=== PATIENT | female | born 1975 | race Caucasian/White ===

== ENCOUNTER → 2017-05-12 20:33 | Outpatient (CLI) | payer MEDICAID, SELFPAY | PROVIDERS: Family Provider Student in an Organized Health Care Education/Training Program; PCP Student in an Organized Health Care Education/Training Program; Visit Provider Psychiatry & Neurology Psychiatry | DX: G47.33 Obstructive sleep apnea (adult) (pediatric) (principal) | CPT/HCPCS: 95811 ==

== ENCOUNTER 2017-11-27 08:41 | Day surgery (SDC) | payer MEDICAID, SELFPAY ==
[2017-11-27] VITALS (7 sets, daily range): BP systolic 114–131; BP diastolic 79–97; PULSE 60–89; RESP 14–22; TEMP 36.7–36.9; O2SAT 99–100; BMI 32.5
--- NOTE | 2017-11-27 | GASB_PTH ---
PATIENT: ETHEL SIMPSON LOC: EN U#:[id number] AGE/SX: 42/F ROOM: RE11/27/[address]: Dr. Lawrence Taveras MD : 1975 BED: DIS: 11/27/2017 SPEC #: [id number] RECD: 11/27/17 14:28 STATUS: YUKO ALONZO #: [id number] DEVAN: 11/27/17 00:[address]: Lawrence Taveras DEPT: SURGICAL PATHOLOGY RECD BY: Adeel Cordova ENTERED: 11/27/17 14:29 SP TYPE: Gastric Bx OTHR DR: Dr. Jamar Shahid DO Tissues: A - Gastric mucous membrane B - Gastric mucous membrane C - Esophageal mucous membrane D - Esophageal mucous membrane E - COLON BIOPSY Procedures: Surgery Specimen Level IV HEADER OPERATION: Colonoscopy, EGD ([facility] [place]) PRE-OP DIAGNOSIS: Abdomen pain; change in bowel habits TISSUE SUBMITTED: A ? Antral biopsy, B ? Gastric polyp biopsy, C ? Distal esophagus biopsy, D ? Mid esophageal biopsy, E ? Random colon biopsies MICROSCOPIC DIAGNOSIS A. Gastric antrum, biopsy: Mild chronic gastritis. B. Gastric polyp, biopsy: Fundic gland polyp. C. Distal esophagus, biopsy: Fragment of benign squamous mucosa. No evidence of inflammation. D. Mid esophagus, biopsy: Fragment of benign squamous mucosa. No evidence of inflammation. E. Random biopsy: No pathologic diagnosis. AM:georgina 11/30/17 COMMENT A.The results of immunohistochemistry for Helicobacter pylori will be reported separately ([id number]). MICROSCOPIC DESCRIPTION Slides are reviewed. GROSS DESCRIPTION A ? Received is one container labeled with the patient name and designated antrum biopsy. The specimen consists of one irregular fragment of light armenta soft tissue that measures 0.5 x 0.2 x 0.1 cm. The specimen is totally submitted in one cassette. B- Received is one container labeled with the patient name and designated gastric polyp biopsy. The specimen consists of one irregular fragment of light armenta soft tissue that measures 0.3 x 0.3 x 0.1 cm. The specimen is totally submitted in one cassette. C - Received is one container labeled with the patient name and designated distal esophagus biopsy. The specimen consists of multiple irregular fragments of light armenta soft tissue that in aggregate measure 0.6 x 0.5 x 0.1 cm. The specimen is totally submitted in one cassette. D - Received is one container labeled with the patient name and designated mid esophagus. The specimen consists of one irregular fragment of light armenta soft tissue that measures 0.5 x 0.5 x less than 0.1 cm. The specimen is totally submitted in one cassette. E - Received is one container labeled with the patient name and designated random colon biopsy. The specimen consists of multiple irregular fragments of light armenta soft tissue that in aggregate measure 1 x 0.7 x 0.1 cm. The specimen is totally submitted in one cassette. /AM:sp 11/27/17 TC: 3 CPT: 18317 x5
--- NOTE | 2017-11-27 | IMM_PTH ---
PATIENT: ETHEL SIMPSON LOC: EN U#:[id number] AGE/SX: 42/F ROOM: RE11/27/[address]: Dr. Lawrence Taveras MD : 1975 BED: DIS: 11/27/2017 SPEC #: [id number] RECD: 11/30/17 11:57 STATUS: YUKO REHayes #: [id number] DEVAN: 11/27/17 00:[address]: Lawrence Taveras DEPT: IMMUNOHISTOCHEMISTRY RECD BY: Shima Mendez ENTERED: 11/30/17 11:58 SP TYPE: IMMUNO OTHR DR: Dr. Jamar Shahid, Tissues: A - Gastric mucous membrane Procedures: H Pylori (initial) Comments: @ Specimen number changed from [id number] to [id number] @ on 11/30/17 at 1207 by MARCI. PHYSICIAN & INSTITUTION [place] [id number] SPECIMEN INFORMATION: Tissue Source: A. Antral biopsy Clinical Info: Abdomen pain, change in bowel habits Specimen Number: [id number] CPT code: 31987 METHODOLOGY: Deparaffinized sections of prefer/formalin-fixed tissue or PAP/DQ stained slides are incubated with monoclonal/polyclonal antibodies/oligonucleotide probes. Localization is made via biotin free immunoperoxidase method. Appropriate controls are performed and reacted as expected. Results on target cell population are indicated in the following table: RESULTS: ANTIBODY / CLONE RESULT Block A H Pylori (polyclonal) negative These tests were developed and their performance characteristics determined by [facility]. They may not have been cleared or approved by the U.S. Food and Drug Administration. The FDA has determined that such clearance or approval is not necessary. INTERPRETATION: Gastric antrum, biopsy: Negative for Helicobacter pylori organisms. AM:joesph 12/01/17
[2017-11-27 09:21] LABS: Bedside Glucose 90 mg/dL (70-110)
--- NOTE | 2017-11-27 11:07 | PCM.OPRPT ---
Problem List (1) Abdominal pain Status: Acute Qualifiers: Abdominal location: generalized Qualified Code(s): R10.84 - Generalized abdominal pain Report of Operation Date of Procedure: 11/27/17 Pre-Operative Diagnosis: Generalized abdominal pain Post-Operative Diagnosis: Very small hiatal hernia. Solitary gastric fundic polyp. Otherwise normal-appearing upper endoscopy. Normal-appearing colon. Surgery/Procedure Performed:: Esophagogastroduodenoscopy with antral and distal esophageal and mid esophageal biopsies and cold forcep biopsy polypectomy of a gastric fundic polyp. Colonoscopy with random colonic cold forcep biopsies Description of Surgical Findings:: Timeout and informed consent was obtained. A 2-year-old female was taken to the endoscopy suite. He underwent monitored anesthesia care. Her oropharynx anesthetized with Topex. She was placed in a left loud skin position. The gastroscope was inserted into the esophageal inlet. Proximal mid distal esophagus did not appear to be remarkable. EG junction at 39 cm. Very small hiatal hernia. No evidence of any reflux changes. The scope was advanced into the stomach which grossly appeared to be normal. The scope was advanced through the pylorus. The first and second portion of the duodenum were inspected this was not remarkable. The scope was withdrawn back in the stomach the scope was retroflexed the EG junction and cardia inspected. The cardia was normal except for 1 small polyp within the fundus of the stomach. Cold forceps were used to sample and eradicate this lesion. Minimal hiatal hernia noted. The scope was placed back in in antegrade viewing position. Antral biopsy was obtained. Excess fluid and air was aspirated free. The scope was withdrawn to the distal esophagus. Distal esophageal and mid esophageal cold forcep biopsies were obtained but the mucosa appeared to be normal. Excess fluid and air was aspirated free the procedure was completed with the patient tolerating it well. Digital rectal exam performed. Normal anal tone. Flexible colonoscope was inserted into the rectum advanced through a tortuous left colon. Scope was advanced to the transverse colon and by placing the patient supine and with transabdominal pressure is able to get the scope to go to the cecum. Bowel prep was very good. The cecum ileocecal valve was achieved. The scope was carefully withdrawn from the ascending transverse descending sigmoid colon. Random colonic biopsies were obtained. The mucosa appeared to be completely unremarkable. The scope was retroflexed within the rectum and a grade 2 internal hemorrhoids noted but no active bleeding. Excess fluid and air was aspirated free the procedure was completed with the patient tolerating it well. Impression Minimal hiatal hernia. Small gastric fundic polyp. Otherwise normal-appearing duodenum stomach and esophagus. Biopsies pending Normal-appearing colon. Random colonic biopsies pending. The current findings do not correlate with the patient's complaint of pain. The etiology of this is undetermined by this examination. No previous colonoscopy. Next screening colonoscopy recommended in 10 years. The upper scope was started at 1041. It was completed at 1046. The lower scope started at 1049. The cecum was reached at 1059. The procedure was completed at 04/06/2008. Cc: Dr. Jamar Shahid and Chely Draper MEDICATION SPECIALIST Lawrence Taveras M.D., F.A.C.S. Type of Anesthesia:: MAC Anesthesiologist: Ashli De La Vega
== END 2017-11-27 12:30 | disposition home or self-care (01) ==
LOC: EN 08:41 → AC 08:42
PROVIDERS: Family Provider Student in an Organized Health Care Education/Training Program; PCP Student in an Organized Health Care Education/Training Program; Visit Provider Surgery
PROC: 0DJD8ZZ Inspection of Lower Intestinal Tract, Via Natural or Artificial Opening Endoscopic (ICD-10-PCS; CPT 45378; principal; 2017-11-27 09:25)
DX: K29.50 Unspecified chronic gastritis without bleeding (principal); K44.9 Diaphragmatic hernia without obstruction or gangrene; K31.7 Polyp of stomach and duodenum; K90.49 Malabsorption due to intolerance, not elsewhere classified; E11.9 Type 2 diabetes mellitus without complications; J45.909 Unspecified asthma, uncomplicated; G47.30 Sleep apnea, unspecified; G25.81 Restless legs syndrome; K58.9 Irritable bowel syndrome, unspecified; F41.9 Anxiety disorder, unspecified; F32.9 Major depressive disorder, single episode, unspecified; Z86.2 Personal history of diseases of the blood and blood-forming organs and certain disorders involving the immune mechanism; Z79.84 Long term (current) use of oral hypoglycemic drugs
CPT/HCPCS: 43239; 45380; 82962; 88305; 88342; J7120

== ENCOUNTER 2019-04-18 08:34 | Emergency (ER) | payer MEDICAID, SELFPAY ==
[2019-04-18 08:35] VITALS: BP 144/83; PULSE 94; RESP 16; TEMP 37.3; O2SAT 96; BMI 32.4
--- NOTE | 2019-04-18 09:04 | ED.VIS.GEN ---
History of Present Illness Chief Complaint: General Illness Detail of Chief Complaint: mult complaints Informant: Patient Onset: Days - 3- Context: Gradual Onset Timing: Continuous Quality: achy Location: all over, joints Current Severity: Severe Maximum Severity: Severe Worsened by: moving Relieved by: remaining still Associated Symptoms: cough, sore throat, fever, bitemporal headache Narrative: Patient states she has a history of fibromyalgia and chronic cervicalgia. She is having a lot of pain and states it is in all of her joints. They feel achy. She has a nonproductive cough. For a couple of seconds, she felt short of breath yesterday but otherwise no dyspnea. She thought she was wheezing at the time. She has no history of asthma. She has had no edema. No recent travel out of the area. She states her had the respiratory illness before she did, he travels out of state frequently, but he did not have these pains. She states her head and neck hurt worse than usual. She has bitemporal headache with photophobia, no thunderclap, it was gradual in onset. She does not have a history of migraines. She denies any vision changes. She states the head pain is sharp. It does not radiate into her face. She looked up her symptoms on the Internet and has resolved she wants to make sure she does not have temporal arteritis. - Past Medical History (1) Fibromyalgia Status: Chronic (2) Cervicalgia Status: Chronic Past Medical History - Allergies and Home Meds Allergies/Adverse Reactions: Allergies latex Allergy (Verified 04/18/19 08:35) Swelling gluten Adverse Reaction (Verified 04/18/19 08:35) Other haloperidol [From Haldol] Adverse Reaction (Verified 04/18/19 08:35) Other Primary Care Physician: Jamar Shahid DO [Primary Care Provider] - Lives: Spouse/ Significant Other Smoking Status: Never smoker Review of Systems General: Reports: Chills, Fever, Malaise, Subjective. Denies: Sweats Eyes: Denies: Visual changes - bilaterally, Diplopia ENT: Reports: Rhinorrhea, Sore throat. Denies: Bilateral ear pain Cardiovascular: Denies: Chest pain, Palpitations Respiratory: Reports: Dyspnea, Cough. Denies: Sputum, Dyspnea on exertion Gastrointestinal: Denies: Abdominal pain, Nausea, Vomiting, Diarrhea, Melena, Hematochezia Genitourinary: Denies: Dysuria, Hematuria, Frequency Musculoskeletal: Reports: Arthralgias, Neck pain, Back pain, Extremity Pain. Denies: Swelling Skin: Denies: Rash, Abscess, Wounds Neurological: Reports: Headache. Denies: Weakness, Numbness Psych: Reports: Anxiety. Denies: Depression Physical Exam Vital Signs/Narrative: Vital Signs Temp Pulse Resp BP Pulse Ox 04/18/19 08:35 99.2 F H 94 16 144/83 H 96 Inital Vital Signs reviewed: Yes General: Well nourished, Well developed, No Acute Distress Head: Normocephalic, Atraumatic Eyes: Perrl, EOMI, - - mild photophobia ENT: Moist mucous membranes, No rhinorrhea, - - no temporal tenderness or palpable cord Neck: Supple - FROM, including rotation to both sides fully, Nontender, No lymphadenopathy, No JVD Cardiovascular: Regular rate, Regular rhythm, No murmurs Respiratory: No distress, CTA bilaterally, Chest nontender, - - frequent bronchospasm, dry cough Abdomen: Soft, Nontender, Nondistended, Normal bowel sounds Back: Nontender, Normal Inspection. Negative for: CVA tenderness Extremities: Nontender, No edema, - - Joints are normal-appearing, very tender throughout. No joints are erythematous, swollen throughout all 4 extremities.. Negative for: Calf Tenderness Skin: Normal color, No rash, No Trauma Neurological: Alert, Oriented x3, Cranial nerves II-XII grossly intact, Normal Strength, Normal Sensation Psychological: Normal Mood, - - very anxious Diagnostic/Tx/Re-eval Impressions Chest X-Ray 04/18/19 10:05 IMPRESSION: Focal right upper lobe infiltrate with increased markings in the lingular segment of the left upper lobe. Electronically Signed: Cody Knight, at 10:28 EST , Service support , 04/18/19 10:05 Chest PA and Lateral [RAD] Stat 04/18/19 09:50 Mucosa - Nose Influenza Types A,B Direct FA (SUSSY) - Final 04/18/19 09:53 Mucosa - Throat Group A Streptococcus Rapid Screen - Preliminary Laboratory Results 04/18/19 04/18/19 04/18/19 09:17 09:17 09:55 WBC 11.6 H RBC 4.00 L Hgb 12.1 Hct 36.3 L MCV 90.8 MCH 30.3 MCHC 33.3 RDW Std Deviation 39.9 RDW Coeff of Krish 12.0 Plt Count 182 MPV 10.1 Immature Gran % (Auto) 0.700 Neut % (Auto) 84.6 H Lymph % (Auto) 7.2 L O'Brien % (Auto) 7.0 Eos % (Auto) 0.3 Baso % (Auto) 0.2 Absolute Neuts (auto) 9.8 H Absolute Lymphs (auto) 0.84 Nucleated RBC % 0 Sodium 138 Potassium 3.3 L Chloride 105 Carbon Dioxide 28.0 Anion Gap 5 BUN 6 L Creatinine 0.62 Estim Creat Clear Calc 103.11 Est GFR (MDRD) Af Amer 135 Est GFR (MDRD) Non-Af 111 BUN/Creatinine Ratio 9.8 L Glucose 114 H Calcium 8.9 Urine Color Yellow Urine Clarity Clear Urine pH 7.0 Ur Specific [place] 1.005 Urine Protein Negative Urine Glucose (UA) Normal Urine Ketones 50 H Urine Occult Blood 50 H Urine Nitrite Negative Urine Bilirubin Negative Urine Urobilinogen Normal Ur Leukocyte Esterase Negative Urine RBC 0-5 SEEN Urine WBC 0-5 SEEN Ur Squamous Epith Cells 0-5 SEEN Urine Bacteria RARE Urine Mucus 0 SEEN - Medical Decision Making Patient feels much better after Reglan and Toradol along with some IV fluids. Her headache is gone her aches are much better. I do not think she needs further testing for temporal arteritis, clinically she does not have it and she is too young for the most part. Chest x-ray shows some early streaky infiltrates that may be consistent with pneumonia. As I discussed with the patient, it may be viral pneumonia, or it may be bacterial pneumonia as a superinfection on top of a virus. Either way I will cover her with Levaquin and advised that she follow closely as an outpatient which she is comfortable with, her vital signs are fine and her pulse ox is 96 on room air. All questions answered at the bedside and she is comfortable with that plan. ED Disposition - Plan for ED Patient: Disposition: Home or Assisted Living Diagnosis: Pneumonia, Arthralgia, Vascular headache Instructions: Pneumonia, ED, Migraine (Classical) Prescriptions: levoFLOXacin tablet [Levaquin tablet] 750 mg PO DAILY 4 Days #4 tab Transmission Status: Pending to [facility] Referrals: Jamar Shahid DO [Primary Care Provider] - 3-5 Days
[2019-04-18] MEDS: Ketorolac 30 MG/ML Syringe IV (09:18)
[2019-04-18] MEDS: Metoclopramide 10 MG/2 ML Vial IV (09:18)
[2019-04-18 09:22] LABS: Absolute Lymphocyte Count 0.84 X10^3/uL (0.83-4.51); Absolute Neutrophil Count 9.8 X10^3/uL (2.0-7.7); Basophil# 0.02 X10^3/uL; Basophil% 0.2 % (0-1); Eosinophil# 0.03 X10^3/uL; Eosinophils% 0.3 % (0-5); Hematocrit 36.3 % (37-47); Hemoglobin 12.1 g/dL (12.0-15.0); Lymphocyte # 0.84 X10^3/ul (4.0); Lymphocyte % 7.2 % (19-41); Mean Corp Hgb Conc 33.3 g/dL (32-36); Mean Corpuscular Hgb 30.3 pg (27.0-32.0); Mean Corpuscular Volume 90.8 fL (81-99); Mean Platelet Vol. 10.1 fl (6.2-12.0); Monocyte# 0.81 X10^3/uL; NRBC Flagged by Analyzer 0 % (0-5); Neutrophil # 9.81 X10^3/uL (2.7-7.7); Neutrophil % 84.6 % (47-70); Platelet Count 182 K/mm3 (150-450); RBC Distribution Width SD 39.9 fl (35.1-43.9); White Blood Count 11.6 K/mm3 (4.4-11.0)
[2019-04-18 09:36] LABS: Anion Gap 5 (5-15); BUN 6 mg/dL (7-18); BUN/Creat Ratio 9.8 RATIO (10-20); Calcium,Total 8.9 mg/dL (8.5-10.1); Chloride 105 mmol/L (98-107); Creatinine, Serum 0.62 mg/dL (0.55-1.02); EST Glomerular Filtration Rate 111 mL/min (>60); Est Glom Filt Rate - Afr Amer 135 mL/min (>60); Estimated Creatinine Clearance 103.11 ml/min; Glucose 114 mg/dL (74-106); Potassium 3.3 mmol/L (3.5-5.1); Sodium Level 138 mmol/L (136-145)
[2019-04-18 10:04] LABS: Mucous, Urine 0 SEEN /hpf (<or=2+)
--- NOTE | 2019-04-18 10:05 | RAD_ITS ---
STUDY: X-RAY CHEST REASON FOR EXAM: Female, 43 years old. SOB AND COUGH FOR A COUPLE OF DAYS NOW. GENERAL WEAKNESS TECHNIQUE: PA and lateral views of the chest. COMPARISON: Comparison is made with prior study dated September 28, 2011. FINDINGS: Focal right upper lobe infiltration. Mild increased markings in the lingular segment of the left upper lobe. Scattered calcified granulomas. There is no demonstrated pleural abnormality. Normal size heart. Normal mediastinum and thiago. Normal visualized pulmonary arteries. Normal visualized aortic arch and descending thoracic aorta. Normal visualized thoracic spine. Normal visualized ribs, clavicles, and shoulders. There is no demonstrated abnormality of the visualized soft tissue structures of the upper abdomen. RAD/Chest PA and Lateral IMPRESSION: Focal right upper lobe infiltrate with increased markings in the lingular segment of the left upper lobe. Electronically Signed: Cody Knight, at 10:28 EST , Service support ,
[2019-04-18 10:11] LABS: Color, Urine Yellow (Yellow); Glucose, Dipstick Normal (Normal); Ketone-Dipstick 50 mg/dl (Negative); Leukocyte Esterase-Dipstick Negative /ul (Negative); Nitrite-Dipstick Negative (Negative); Occult Blood-Urine 50 /ul (Negative); Protein-Dipstick Negative (Negative); Specific Gravity, Urine 1.005 (1.002-1.030); Urine Bilirubin Dipstick Negative (Negative); Urine Clarity Clear (Clear); Urine Urobilinogen Normal (Normal)
[2019-04-18 10:19] LABS: Bacteria RARE /hpf (None Seen); Red Blood Cells-Urine 0-5 SEEN /hpf (0-5); Squamous Epithelial Cells - UA 0-5 SEEN /hpf (5-10); White Blood Cells 0-5 SEEN /hpf (0-5)
[2019-04-18 10:40] VITALS: RESP 18
[2019-04-18] MEDS: levoFLOXacin 750 MG Tablet PO (12:09)
[2019-04-18 12:14] VITALS: BP 122/70; PULSE 84; RESP 16; O2SAT 96
== END 2019-04-18 12:15 | disposition home or self-care (01) ==
PROVIDERS: Emergency Provider Emergency Medicine; Family Provider Student in an Organized Health Care Education/Training Program; PCP Student in an Organized Health Care Education/Training Program
DX: J18.9 Pneumonia, unspecified organism (principal); G44.1 Vascular headache, not elsewhere classified; M79.7 Fibromyalgia
CPT/HCPCS: 71046; 80048; 81001; 85025; 87804; 87880; 96374; 96375; 99284; J7030; A4216

== ENCOUNTER 2019-04-19 05:13 | Emergency (ER) | payer MEDICAID, SELFPAY ==
[2019-04-18 08:35] VITALS: BMI 32.4
[2019-04-19 05:14] VITALS: BP 146/80; PULSE 81; RESP 18; TEMP 36.8; O2SAT 98; BMI 33.0
--- NOTE | 2019-04-19 05:18 | EKG12_ITS ---
Test Reason : SOB Blood Pressure : / mmHG Vent. Rate : 080 BPM Atrial Rate : 080 BPM P-R Int : 128 ms QRS Dur : 084 ms QT Int : 404 ms P-R-T Axes : 065 060 043 degrees QTc Int : 465 ms Normal sinus rhythm Nonspecific ST abnormality Abnormal ECG Confirmed by MARRY HARRIS, AB ([id number]), editorial clerk ENDY ROGER ([id number]) on 04/22/2019 9:51:17 AM Referred By: TITI Confirmed By:WILBERT TUTTLE MD
--- NOTE | 2019-04-19 05:18 | RAD_ITS ---
STUDY: X-RAY CHEST REASON FOR EXAM: Female, 43 years old. PALPITATIONS AND SOB TECHNIQUE: PA and lateral chest COMPARISON: 04/18/2019. FINDINGS: There are stable patchy focal right upper lobe pulmonary opacities. There is no demonstrated pleural abnormality. Normal size heart. Normal mediastinum and thiago. Normal visualized pulmonary arteries. Normal visualized aortic arch and descending thoracic aorta. Normal visualized thoracic spine. Normal visualized ribs, clavicles, and shoulders. There is no demonstrated abnormality of the visualized soft tissue structures of the upper abdomen. RAD/Chest PA and Lateral IMPRESSION: Stable focal right upper lobe pulmonary opacities most likely pneumonia pulmonary mass cannot be excluded. Follow-up until clear recommended or CT chest follow-up recommended Electronically Signed: Lawrence Baum, at 6:05 EST Tel , Service support ,
--- NOTE | 2019-04-19 05:19 | ED.VIS.GEN ---
History of Present Illness Chief Complaint: Palpitations Informant: Patient Onset: Today Context: Gradual Onset Timing: Intermittent Current Severity: Moderate Maximum Severity: Moderate Narrative: The patient is a 43-year-old female with history of fibromyalgia, tendinitis, and neuropathy who presents to the emergency department with palpitations and shortness of breath. The patient was seen here yesterday. At that point, she had upper respiratory symptoms. Her work-up which included x-ray demonstrated pneumonia. The patient was started on oral antibiotics. She states tonight, she just felt like her heart was racing and she was having pain in her right chest. She thought it might be a reaction to the Toradol that she was given. She does not think she is had fever. She states she just feels generally unwell. Prior similar symptoms: Yes Recent Illness/Hospitalization: No Past Medical History - Allergies and Home Meds Allergies/Adverse Reactions: Allergies latex Allergy (Verified 04/19/19 05:23) Swelling gluten Adverse Reaction (Verified 04/19/19 05:23) Other haloperidol [From Haldol] Adverse Reaction (Verified 04/19/19 05:23) Other Primary Care Physician: Jamar Shahid DO [Primary Care Provider] - Prior records reviewed: Yes Past Medical History: - - Neuropathy, fibromyalgia Surgical History: noncontributory Smoking Status: Never smoker Review of Systems General: Reports: Chills Eyes: Denies: Visual changes - bilaterally, Diplopia ENT: Denies: Rhinorrhea, Sore throat Cardiovascular: Reports: Chest pain, Palpitations Respiratory: Reports: Cough Gastrointestinal: Denies: Abdominal pain, Nausea, Vomiting, Diarrhea, Melena, Hematochezia Genitourinary: Denies: Dysuria, Hematuria, Frequency Musculoskeletal: Denies: Back pain, Extremity Pain Skin: Denies: Rash, Wounds Neurological: Denies: Headache, Weakness, Numbness Physical Exam Inital Vital Signs reviewed: Yes General: Well nourished, Well developed, No Acute Distress Head: Normocephalic, Atraumatic Eyes: Perrl, EOMI ENT: Moist mucous membranes, No rhinorrhea Neck: Supple, Nontender Cardiovascular: Regular rate, Regular rhythm, No murmurs Respiratory: No distress, CTA bilaterally, Chest nontender Abdomen: Soft, Nontender, Nondistended, Normal bowel sounds Back: Nontender, Normal Inspection Extremities: Nontender, No edema Skin: Normal color, No rash Neurological: Alert, Oriented x3, Cranial nerves II-XII grossly intact, Normal Strength, Normal Sensation Psychological: Normal affect, Normal Mood Diagnostic/Tx/Re-eval Abnormal Lab Results 04/19/19 04/19/19 04/19/19 05:25 05:25 05:25 WBC 10.6 RBC 4.13 L Hgb 12.4 Hct 36.9 L MCV 89.3 MCH 30.0 MCHC 33.6 RDW Std Deviation 39.1 RDW Coeff of Krish 11.9 Plt Count 225 MPV 10.4 Immature Gran % (Auto) 0.400 Neut % (Auto) 76.7 H Lymph % (Auto) 14.5 L [place] % (Auto) 7.8 Eos % (Auto) 0.4 Baso % (Auto) 0.2 Absolute Neuts (auto) 8.1 H Absolute Lymphs (auto) 1.53 Nucleated RBC % 0 Sodium 138 Potassium 2.9 L Chloride 104 Carbon Dioxide 29.0 Anion Gap 5 BUN 6 L Creatinine 0.69 Estim Creat Clear Calc 92.65 Est GFR (MDRD) Af Amer 118 Est GFR (MDRD) Non-Af 97 BUN/Creatinine Ratio 8.7 L Glucose 132 H Lactic Acid 1.1 Calcium 9.4 Total Bilirubin 1.50 H AST 14 L ALT 21 Alkaline Phosphatase 79 Troponin I < 0.015 Total Protein 7.9 Albumin 3.7 Globulin 4.2 Albumin/Globulin Ratio 0.9 - Rhythm Strip Rhythm Strip: Sinus Rhythm Rate: 80 Ectopy: None - EKG Initial EKG Interpretation: Sinus Rhythm, No Acute Injury Pattern Prior: Unchanged - Medical Decision Making The patient presents to the emergency department with palpitations and just generally feeling unwell. She was seen here last evening and was diagnosed with community-acquired pneumonia. She states she is been taking her antibiotics. She states today, she just felt like her heart was racing. EKG was obtained which was sinus rhythm without acute ischemia. Cardiac enzymes are normal. Her x-ray is unchanged. She was found to be hypokalemic and this was replaced orally. Patient has no hypoxia or tachypnea. She is feeling improved. At this point, I do not suspect a dangerous process. I am going to keep her on potassium replacement for the next week and have her follow-up for recheck. She has a very low pneumonia severity index and otherwise unremarkable work-up. I do feel that she is safe for outpatient therapy. Impression 1. Hypokalemia 2. Community-acquired pneumonia ED Disposition - Plan for ED Patient: Instructions: Palpitations, Hypokalemia Prescriptions: Potassium Chloride 20 meq PO BID #[id number] [email or web address] Prescription Printed Referrals: Jamar Shahid DO [Primary Care Provider] -
[2019-04-19] MEDS: 0.9% Normal Saline 1,000 ML 1000 ML IV (05:31)
[2019-04-19 05:35] LABS: Absolute Lymphocyte Count 1.53 X10^3/uL (0.83-4.51); Absolute Neutrophil Count 8.1 X10^3/uL (2.0-7.7); Basophil# 0.02 X10^3/uL; Basophil% 0.2 % (0-1); Eosinophil# 0.04 X10^3/uL; Eosinophils% 0.4 % (0-5); Hematocrit 36.9 % (37-47); Hemoglobin 12.4 g/dL (12.0-15.0); Lymphocyte # 1.53 X10^3/ul (4.0); Lymphocyte % 14.5 % (19-41); Mean Corp Hgb Conc 33.6 g/dL (32-36); Mean Corpuscular Volume 89.3 fL (81-99); Mean Platelet Vol. 10.4 fl (6.2-12.0); Monocyte# 0.82 X10^3/uL; Monocyte% 7.8 % (0-10); NRBC Flagged by Analyzer 0 % (0-5); Neutrophil % 76.7 % (47-70); Platelet Count 225 K/mm3 (150-450); RBC Distribution Width CV 11.9 % (11.6-14.6); RBC Distribution Width SD 39.1 fl (35.1-43.9); Red Blood Count 4.13 M/mm3 (4.2-5.4); White Blood Count 10.6 K/mm3 (4.4-11.0)
[2019-04-19 05:54] LABS: ALB/GLOB Ratio 0.9 RATIO (0.9-2.4); AST(SGOT) 14 U/L (15-37); Alanine Aminotransfer ALT/SGPT 21 U/L (13-56); Albumin, Serum 3.7 g/dL (3.2-5.0); Alkaline Phosphatase 79 U/L (45-117); Anion Gap 5 (5-15); BUN 6 mg/dL (7-18); BUN/Creat Ratio 8.7 RATIO (10-20); Calcium,Total 9.4 mg/dL (8.5-10.1); Chloride 104 mmol/L (98-107); Creatinine, Serum 0.69 mg/dL (0.55-1.02); EST Glomerular Filtration Rate 97 mL/min (>60); Est Glom Filt Rate - Afr Amer 118 mL/min (>60); Estimated Creatinine Clearance 92.65 ml/min; Globulin 4.2 g/dL (2.2-4.2); Glucose 132 mg/dL (74-106); Potassium 2.9 mmol/L (3.5-5.1); Protein, Total 7.9 g/dL (6.4-8.2); Sodium Level 138 mmol/L (136-145)
[2019-04-19 06:03] LABS: Lactic Acid 1.1 mmol/L (0.4-1.9)
[2019-04-19 06:26] VITALS: PULSE 78; RESP 18; O2SAT 99
== END 2019-04-19 06:55 | disposition home or self-care (01) ==
LOC: ED 05:28
PROVIDERS: Emergency Provider Emergency Medicine; Family Provider Student in an Organized Health Care Education/Training Program; PCP Student in an Organized Health Care Education/Training Program
DX: J18.9 Pneumonia, unspecified organism (principal); E87.6 Hypokalemia; M79.7 Fibromyalgia; G62.9 Polyneuropathy, unspecified
CPT/HCPCS: 71046; 80053; 83605; 84484; 85025; 93005; 96360; 99285; J7030; A4216

== ENCOUNTER 2019-04-20 00:17 | Emergency (ER) | payer MEDICAID, SELFPAY ==
[2019-04-19 05:14] VITALS: BMI 33.0
[2019-04-20 00:18] VITALS: BP 137/84; PULSE 84; RESP 16; TEMP 37.1; O2SAT 98; BMI 32.8
--- NOTE | 2019-04-20 00:33 | EKG12_ITS ---
Test Reason : ALLERGIC REACTION Blood Pressure : / mmHG Vent. Rate : 077 BPM Atrial Rate : 077 BPM P-R Int : 126 ms QRS Dur : 080 ms QT Int : 404 ms P-R-T Axes : 059 060 040 degrees QTc Int : 457 ms Normal sinus rhythm with sinus arrhythmia Nonspecific ST abnormality Abnormal ECG Confirmed by MARRY HARRIS, AB ([id number]), metropolitan editor ENDY ROGER ([id number]) on 04/22/2019 9:59:53 AM Referred By: IRASEMA Confirmed By:WILBERT TUTTLE MD
--- NOTE | 2019-04-20 00:35 | ED.DCSUM_ITS ---
History of Present Illness Chief Complaint: Allergic Reaction Narrative: Patient is a 43-year-old female who presents with extensive complaints. She believes she may be having a reaction to the medications she was recently prescribed. This is her third emergency department visit in 3 days. On the initial visit she was diagnosed with pneumonia. She then returned with palpitations and was also found to have hypokalemia and was put on potassium chloride. Today she complains of [place], intermittent shortness of breath, feeling faint, abdominal pain, urinary frequency, muscle spasms, tingling in her upper body, and feeling crazy. She does report a history of PTSD and anxiety but does not believe this is related to anxiety. She states that she was looking up the medications online which listed multiple side effects including psychosis. Past Medical History - Allergies and Home Meds Allergies/Adverse Reactions: Allergies latex Allergy (Verified 04/20/19 00:18) Swelling gluten Adverse Reaction (Verified 04/20/19 00:18) Other haloperidol [From Haldol] Adverse Reaction (Verified 04/20/19 00:18) Other Primary Care Physician: Jamar Shahid DO [Primary Care Provider] - Past Medical History: - - PTSD Surgical History: noncontributory Smoking Status: Never smoker Review of Systems All systems negative except as indicated General: Reports: Fever Eyes: Denies: Visual changes - bilaterally ENT: Denies: Bilateral ear pain Cardiovascular: Reports: Palpitations Respiratory: Reports: Dyspnea Gastrointestinal: Reports: Abdominal pain. Denies: Vomiting Genitourinary: Reports: Frequency Musculoskeletal: Reports: Myalgias Skin: Denies: Rash Neurological: Denies: Headache Psych: Reports: Anxiety Hematologic: Denies: Easy bruising Allergy: Denies: Uticaria Physical Exam Vital Signs/Narrative: Vital Signs Temp Pulse Resp BP Pulse Ox 04/20/19 00:18 98.7 F 84 16 137/84 H 98 Inital Vital Signs reviewed: Yes General: Well nourished, Well developed Head: Normocephalic Eyes: EOMI ENT: Moist mucous membranes Neck: Supple Cardiovascular: Regular rate, Regular rhythm Respiratory: - - Scattered end expiratory wheezing, no distress, no increased work of breathing or retractions Abdomen: Soft, Nontender Skin: Normal color Neurological: Alert Psychological: - - Patient appears anxious Diagnostic/Tx/Re-eval Laboratory Results 04/20/19 04/20/19 00:45 00:45 Sodium 141 Potassium 3.5 Chloride 109 H Carbon Dioxide 29.0 Anion Gap 3 L BUN 5 L Creatinine 0.70 Estim Creat Clear Calc 91.32 Est GFR (MDRD) Af Amer 116 Est GFR (MDRD) Non-Af 95 BUN/Creatinine Ratio 7.1 L Glucose 120 H Calcium 9.2 Urine Color Yellow Urine Clarity Clear Urine pH 7.0 Ur Specific [place] 1.010 Urine Protein Negative Urine Glucose (UA) Normal Urine Ketones 5 H Urine Occult Blood 25 H Urine Nitrite Negative Urine Bilirubin Negative Urine Urobilinogen Normal Ur Leukocyte Esterase Negative Urine RBC 0 SEEN Urine WBC 0 SEEN Ur Squamous Epith Cells 0 SEEN Urine Bacteria 0 SEEN Urine Mucus 0 SEEN - Medical Decision Making EKG shows normal sinus rhythm with nonspecific ST changes. BMP and urinalysis as above unremarkable. Potassium is normal today. I do believe much of the patient's symptoms are related to anxiety. However she is concerned about possible adverse medication reaction. Therefore she was advised to stop the Benadryl sleep tabs, guaifenesin, Tessalon. I did advise that she continue the antibiotics until she completes treatment for pneumonia. Patient states she is afraid to go home because she is afraid she will quit breathing. She was reassured. Her vital signs and examination here are unremarkable. I do not see an indication for hospitalization. She does live with family. Patient discharged. ED Disposition - Plan for ED Patient: Disposition: Home or Assisted Living Diagnosis: Anxiety, Pneumonia, Medication reaction Instructions: DRUG REACTION, Other, Anxiety Reaction, PNEUMONIA (Adult) Referrals: Jamar Shahid DO [Primary Care Provider] -
[2019-04-20 00:52] LABS: Bacteria 0 SEEN /hpf (None Seen); Mucous, Urine 0 SEEN /hpf (<or=2+); Red Blood Cells-Urine 0 SEEN /hpf (0-5); Squamous Epithelial Cells - UA 0 SEEN /hpf (5-10); White Blood Cells 0 SEEN /hpf (0-5)
[2019-04-20 00:53] LABS: Color, Urine Yellow (Yellow); Glucose, Dipstick Normal (Normal); Ketone-Dipstick 5 mg/dl (Negative); Leukocyte Esterase-Dipstick Negative /ul (Negative); Nitrite-Dipstick Negative (Negative); Occult Blood-Urine 25 /ul (Negative); Protein-Dipstick Negative (Negative); Urine Bilirubin Dipstick Negative (Negative); Urine Clarity Clear (Clear); Urine Urobilinogen Normal (Normal)
[2019-04-20] MEDS: Ondansetron 4 MG/2 ML Vial IV (00:55)
[2019-04-20 01:02] VITALS: BP 132/84; BP 142/118; BP 144/96; PULSE 67; PULSE 72; PULSE 90
[2019-04-20 01:12] LABS: Anion Gap 3 (5-15); BUN 5 mg/dL (7-18); BUN/Creat Ratio 7.1 RATIO (10-20); Calcium,Total 9.2 mg/dL (8.5-10.1); Chloride 109 mmol/L (98-107); EST Glomerular Filtration Rate 95 mL/min (>60); Est Glom Filt Rate - Afr Amer 116 mL/min (>60); Estimated Creatinine Clearance 91.32 ml/min; Glucose 120 mg/dL (74-106); Potassium 3.5 mmol/L (3.5-5.1); Sodium Level 141 mmol/L (136-145)
[2019-04-20 01:32] VITALS: BP 122/76; PULSE 79; RESP 18; O2SAT 98
--- NOTE | 2019-04-20 01:32 | ED.RN ---
PT GIVEN WRITTEN AND VERBAL DISCHARGE INSTRUCTIONS. PT VERBALIZES UNDERSTANDING AND IS TO FOLLOW UP WITH PRIMARY CARE PHYSICIAN. PT DENIES ANY FURTHER QUESTIONS. REPORTS SHE WILL CALL A FRIEND FOR A RIDE HOME. PT IV D/C AND COVERED WITH 2X2 GAUZE AND PAPER TAPE. PT DRESSES SELF. AWAITING RIDE.
== END 2019-04-20 01:34 | disposition home or self-care (01) ==
PROVIDERS: Emergency Provider Emergency Medicine; Family Provider Student in an Organized Health Care Education/Training Program; PCP Student in an Organized Health Care Education/Training Program
DX: F41.9 Anxiety disorder, unspecified (principal); J18.9 Pneumonia, unspecified organism; T50.905A Adverse effect of unspecified drugs, medicaments and biological substances, initial encounter; Y92.9 Unspecified place or not applicable; F43.10 Post-traumatic stress disorder, unspecified; E87.6 Hypokalemia
CPT/HCPCS: 80048; 81001; 93005; 96374; 99284; A4216; J2405

== ENCOUNTER 2020-09-27 18:58 | Emergency (ER) | payer MEDICAID, SELFPAY ==
[2020-09-27 18:59] VITALS: BP 128/66; PULSE 65; RESP 16; TEMP 37; O2SAT 95; BMI 33.4
[2020-09-27 19:06] VITALS: PULSE 62; RESP 14; O2SAT 95
--- NOTE | 2020-09-27 19:11 | EKG12_ITS ---
Test Reason : CP Blood Pressure : / mmHG Vent. Rate : 060 BPM Atrial Rate : 060 BPM P-R Int : 118 ms QRS Dur : 082 ms QT Int : 418 ms P-R-T Axes : 035 067 065 degrees QTc Int : 418 ms Normal sinus rhythm Normal ECG Confirmed by SANTO HARRIS, LUIS ([id number]), city editor IJEOMA MANZO ([id number]) on 09/28/2020 1:00:50 PM Referred By: LOKI Confirmed By:LUIS BLANCHARD MD
--- NOTE | 2020-09-27 19:16 | RAD_ITS ---
STUDY: X-RAY CHEST REASON FOR EXAM: Female, 45 years old. chest pain TECHNIQUE: Single AP portable view of the chest. COMPARISON: 04/19/2019 FINDINGS: The lungs are clear and expanded. There is no demonstrated pleural abnormality. Normal size heart. Normal mediastinum and thiago. Normal visualized pulmonary arteries. Normal visualized aortic arch and descending thoracic aorta. Normal visualized thoracic spine. Normal visualized ribs, clavicles, and shoulders. There is no demonstrated abnormality of the visualized soft tissue structures of the upper abdomen. RAD/Chest 1 View (Portable) IMPRESSION: No evidence of acute cardiopulmonary process. Electronically Signed: Santiago Ramos DO at 19:47 EDT , Service support ,
[2020-09-27 19:44] LABS: Absolute Lymphocyte Count 0.77 X10^3/uL (0.83-4.51); Basophil# 0.03 X10^3/uL; Basophil% 0.4 % (0-1); Hematocrit 38.4 % (37-47); Hemoglobin 12.7 g/dL (12.0-15.0); Lymphocyte # 0.77 X10^3/ul (0.83-4.51); Lymphocyte % 9.3 % (19-41); Mean Corp Hgb Conc 33.1 g/dL (32-36); Mean Corpuscular Hgb 30.8 pg (27.0-32.0); Mean Platelet Vol. 10.6 fl (6.2-12.0); Monocyte# 0.47 X10^3/uL; Monocyte% 5.7 % (0-10); NRBC Flagged by Analyzer 0 % (0-5); Neutrophil # 6.96 X10^3/uL (2.7-7.7); Neutrophil % 84.2 % (47-70); Platelet Count 245 K/mm3 (150-450); RBC Distribution Width CV 12.4 % (11.6-14.6); RBC Distribution Width SD 42.4 fl (35.1-43.9); Red Blood Count 4.13 M/mm3 (4.2-5.4); White Blood Count 8.3 K/mm3 (4.4-11.0)
[2020-09-27 19:52] LABS: Anion Gap 6 (5-15); BUN 12 mg/dL (7-18); BUN/Creat Ratio 12.1 RATIO (10-20); Calcium,Total 8.8 mg/dL (8.5-10.1); Chloride 105 mmol/L (98-107); Creatinine, Serum 0.99 mg/dL (0.55-1.02); EST Glomerular Filtration Rate 64 mL/min (>60); Est Glom Filt Rate - Afr Amer 77 mL/min (>60); Estimated Creatinine Clearance 63.21 ml/min; Glucose 110 mg/dL (74-106); Sodium Level 139 mmol/L (136-145); Troponin-I HS 6.1 pg/mL (3.0-53.7)
--- NOTE | 2020-09-27 20:01 | ED.VIS.CHEST ---
HPI History of Present Illness Chief Complaint: Chest Pain Narrative Narrative: 45-year-old female presenting with chest pain. She describes it as starting as palpitations. She has a history of SVT. She states that she does not usually get any pressure with this. She describes a minute or so a pressure. She states she felt lightheaded when she was having palpitations. She denies diaphoresis or shortness of breath. Patient denies any cardiac history except for SVT. She is on metoprolol for this. She has no DVT/PE history but has noted some leg pain recently which is worse with kneeling and bending [facility] Medical History Abdominal pain Blood in stool Change in bowel habit Diabetes Epigastric abdominal pain Food intolerance Hemorrhoids History of change in bowel patterns Hypertension Sleep apnea Home Medications budesonide-formoterol [Symbicort] 2 puff INHALATION BID 09/27/20 [History Last Taken Unknown] dextromethorphan-guaifenesin [Mucus DM Max ER] 1 tab PO Q12H 09/27/20 [History Last Taken Unknown] hydroxyzine HCl 25 mg PO BID PRN 09/27/20 [History Last Taken Unknown] lamotrigine 200 mg PO DAILY 09/27/20 [History Last Taken Unknown] loratadine 10 mg PO DAILY 09/27/20 [History Last Taken Unknown] metoprolol succinate 25 mg PO DAILY 09/27/20 [History Last Taken Unknown] mineral oil 09/27/20 [History Last Taken Unknown] ondansetron 4 mg PO Q6H PRN 09/27/20 [History Last Taken Unknown] prednisone 20 mg PO DAILY 09/27/20 [History Last Taken Unknown] trazodone 50 mg PO QHS PRN 09/27/20 [History Last Taken Unknown] Allergy/AdvReac Type Severity Reaction Status Date / Time latex Allergy Swelling Verified 04/20/19 00:18 gluten AdvReac Other Verified 04/20/19 00:18 haloperidol [From Haldol] AdvReac Other Verified 04/20/19 00:18 Family History Father Arthritis Grandmother Diabetes Cancer cervical cancer Thyroid disorder Brother Cancer Leukemia Surgical History History of left breast biopsy history right foot surgery Social History Smoking Status: Never smoker alcohol intake: never substance use type: does not use ROS ROS ED Constitutional Constitutional ED: Denies chills, fever(s) or subjective Eyes Eyes: Denies none or change in vision ENT ENT ED: Denies ear pain or rhinorrhea Cardiovascular Cardiovascular: Reports chest pain, palpitations and racing heartbeat Respiratory/Chest Respiratory/Chest: Denies cough or dyspnea Gastrointestinal Gastrointestinal: Denies abdominal pain, nausea or vomiting Genitourinary Genitourinary ED: Denies dysuria or hematuria Musculoskeletal Musculoskeletal: Denies arthralgias or myalgias Integumentary Denies abscess or rash Neurologic Neurologic: Denies headache(s) or weakness Psychiatric Psychiatric: Denies anxiety or depression EXAM Physical Exam Const Vital Signs: 09/27/20 18:59 09/27/20 19:05 09/27/20 19:06 Temperature 98.6 F Temperature Source Oral Pulse Rate 65 62 Respiratory Rate 16 14 Respiratory Effort Non-Labored Blood Pressure 128/66 H Blood Pressure Mean 86 Pulse Ox 95 95 Oxygen Delivery Method Room Air Room Air 09/27/20 19:17 09/27/20 20:09 09/27/20 22:17 Temperature Temperature Source Pulse Rate 58 L 65 Respiratory Rate 14 12 Respiratory Effort Blood Pressure 125/71 H 141/113 H Blood Pressure Mean 89 122 Pulse Ox 94 95 Oxygen Delivery Method Room Air Room Air Room Air 09/27/20 23:24 Temperature Temperature Source Pulse Rate 70 Respiratory Rate 16 Respiratory Effort Blood Pressure 125/74 H Blood Pressure Mean Pulse Ox 97 Oxygen Delivery Method Positive well developed General Appearance ED: well developed and NAD HEENT normocephalic and atraumatic Eyes PERRL and EOMs intact bilaterally Resp normal respiratory effort and clear to auscultation bilaterally Cardio regular rate and regular rhythm GI normal to inspection, nondistended, normoactive bowel sounds Extremity normal to inspection Extremity Narrative: No cords palpated Neuro Sensorium / Orientation: awake and alert Psych mental status grossly normal Skin no rashes or lesions noted and no wounds Heart Score History: Slightly/Non-Suspicious ECG: Normal Age: >45 - <65 years Risk Factors: 1 or 2 Risk Factors Troponin: </= Normal Limit Score: 2 MDM MDM MDM Narrative Medical decision making narrative: Patient presents with palpitations and some mild chest pressure which is resolved on arrival. She does have a history of SVT she was told that if she continues to have that she may need an ablation. EKG performed on arrival shows a sinus rhythm at 60 bpm without signs of ischemic change. Patient's lab work was unremarkable otherwise. D-dimer is negative. Chest x-ray interpreted by myself shows no acute cardiopulmonary process. The radiologist does agree. Patient's heart score is 2. She had repeat troponin which was negative. She also had a repeat EKG which was sinus rhythm at 53 beats minute without signs of ischemic change. I feel this point patient is stable to be discharged home. She will follow-up with her bell person. Impression: 1. Palpitations 2. Chest pain Lab Data Attestation: I reviewed the patient's lab results. Labs: Laboratory Results - last 24 hr 09/27/20 09/27/20 09/27/20 19:05 19:05 19:45 WBC 8.3 RBC 4.13 L Hgb 12.7 Hct 38.4 MCV 93.0 MCH 30.8 MCHC 33.1 RDW Std Deviation 42.4 RDW Coeff of Krish 12.4 Plt Count 245 MPV 10.6 Immature Gran % (Auto) 0.400 Neut % (Auto) 84.2 H Lymph % (Auto) 9.3 L [place] % (Auto) 5.7 Eos % (Auto) 0.0 Baso % (Auto) 0.4 Absolute Neuts (auto) 7.0 Absolute Lymphs (auto) 0.77 L Nucleated RBC % 0 D-Dimer Quant (PE/DVT) 0.32 Sodium 139 Potassium 4.0 Chloride 105 Carbon Dioxide 28.0 Anion Gap 6 BUN 12 Creatinine 0.99 Estim Creat Clear Calc 63.21 Est GFR (MDRD) Af Amer 77 Est GFR (MDRD) Non-Af 64 BUN/Creatinine Ratio 12.1 Glucose 110 H Calcium 8.8 Troponin I High Sens 6.1 09/27/20 21:53 WBC RBC Hgb Hct MCV MCH MCHC RDW Std Deviation RDW Coeff of Krish Plt Count MPV Immature Gran % (Auto) Neut % (Auto) Lymph % (Auto) [place] % (Auto) Eos % (Auto) Baso % (Auto) Absolute Neuts (auto) Absolute Lymphs (auto) Nucleated RBC % D-Dimer Quant (PE/DVT) Sodium Potassium Chloride Carbon Dioxide Anion Gap BUN Creatinine Estim Creat Clear Calc Est GFR (MDRD) Af Amer Est GFR (MDRD) Non-Af BUN/Creatinine Ratio Glucose Calcium Troponin I High Sens 6.1 Radiography Diagnostic Testing: Radiology Impression Chest X-Ray 09/27/20 19:16 IMPRESSION: No evidence of acute cardiopulmonary process. Electronically Signed: Santiago Ramos DO at 19:47 EDT , Service support , Discharge Plan Triage Chief Complaint: Chest Pain ED Provider: Augusto Andres Dx/Rx/DC Orders Instructions: ED Chest Pain, Noncardiac Prescriptions: No Action lamotrigine 200 mg Tablet 200 mg PO DAILY RF: 0 trazodone 50 mg Tablet 50 mg PO QHS PRN (Reason: Nausea) RF: 0 prednisone 20 mg Tablet 20 mg PO DAILY RF: 0 dextromethorphan-guaifenesin [Mucus DM Max ER] 60-1,200 mg Tablet Extended Release 12 Hr 1 tab PO Q12H RF: 0 hydroxyzine HCl 25 mg Tablet 25 mg PO BID PRN (Reason: Anxiety) RF: 0 ondansetron 4 mg Tablet,Disintegrating 4 mg PO Q6H PRN (Reason: Nausea) RF: 0 loratadine 10 mg Tablet 10 mg PO DAILY RF: 0 budesonide-formoterol [Symbicort] 160-4.5 mcg/actuation Hfa Aerosol Inhaler 2 puff INHALATION BID RF: 0 metoprolol succinate 25 mg Capsule,Sprinkle,Er 24hr 25 mg PO DAILY RF: 0 mineral oil RF: 0 Primary Care Provider: Jamar Shahid Referrals: Jamar Shahid DO [Primary Care Provider] - Disposition Disposition: Home, Self Care Discharge Date/Time: 09/27/20 23:25
[2020-09-27 20:04] LABS: D-Dimer Quantitative (DVT/PE) 0.32 FEU/ug/m (0.27-0.49)
[2020-09-27 20:09] VITALS: BP 125/71; PULSE 58; RESP 14; O2SAT 94
--- NOTE | 2020-09-27 21:10 | EKG12_ITS ---
Test Reason : REPEAT CP Blood Pressure : / mmHG Vent. Rate : 053 BPM Atrial Rate : 053 BPM P-R Int : 118 ms QRS Dur : 092 ms QT Int : 456 ms P-R-T Axes : 031 070 053 degrees QTc Int : 427 ms Sinus bradycardia Otherwise normal ECG Confirmed by SANTO HARRIS, LUIS ([id number]), makeup editor IJEOMA MANZO ([id number]) on 09/28/2020 1:01:04 PM Referred By: LOKI Confirmed By:LUIS BLANCHARD MD
[2020-09-27 22:17] VITALS: BP 141/113; PULSE 65; RESP 12; O2SAT 95
[2020-09-27 22:17] LABS: Troponin-I HS 6.1 pg/mL (3.0-53.7)
[2020-09-27 23:24] VITALS: BP 125/74; PULSE 70; RESP 16; O2SAT 97
== END 2020-09-27 23:25 | disposition home or self-care (01) ==
PROVIDERS: Emergency Provider Student in an Organized Health Care Education/Training Program; PCP Student in an Organized Health Care Education/Training Program
DX: R00.2 Palpitations (principal); R07.89 Other chest pain; I10 Essential (primary) hypertension; E11.9 Type 2 diabetes mellitus without complications; G47.30 Sleep apnea, unspecified; I47.1 Supraventricular tachycardia; Z87.19 Personal history of other diseases of the digestive system; Z79.899 Other long term (current) drug therapy
CPT/HCPCS: 71045; 80048; 84484; 85025; 85379; 93005; 99285; A4216

== ENCOUNTER 2020-12-06 10:46 | Emergency (ER) | payer MEDICAID, SELFPAY ==
[2020-12-06 10:47] VITALS: BP 123/74; PULSE 63; RESP 16; TEMP 36.6; O2SAT 99; BMI 33.3
--- NOTE | 2020-12-06 11:07 | RAD_ITS ---
STUDY: X-RAY CHEST REASON FOR EXAM: Female, 45 years old. chest pain TECHNIQUE: Single AP portable view of the chest. COMPARISON: 09/27/2020 FINDINGS: The lungs are clear and expanded. There is no demonstrated pleural abnormality. Normal size heart. Normal mediastinum and thiago. Normal visualized pulmonary arteries. Normal visualized aortic arch and descending thoracic aorta. Normal visualized thoracic spine. Normal visualized ribs, clavicles, and shoulders. There is no demonstrated abnormality of the visualized soft tissue structures of the upper abdomen. RAD/Chest 1 View (Portable) IMPRESSION: Normal x-ray examination of the chest. Electronically Signed: Moshe Justice MD at 11:32 EDT Tel , Service support ,
--- NOTE | 2020-12-06 11:07 | EKG12_ITS ---
Test Reason : PALPS Blood Pressure : / mmHG Vent. Rate : 059 BPM Atrial Rate : 059 BPM P-R Int : 128 ms QRS Dur : 082 ms QT Int : 450 ms P-R-T Axes : 039 063 039 degrees QTc Int : 445 ms Sinus bradycardia Otherwise normal ECG Confirmed by MARRY HARRIS, AB ([id number]), editorial clerk IJEOMA MANZO ([id number]) on 12/11/2020 8:18:25 AM Referred By: RENEE Confirmed By:WILBERT TUTTLE MD
[2020-12-06] MEDS: Aspirin 81 MG TAB.CHEW 324 MG PO (11:37)
[2020-12-06 11:41] LABS: Absolute Lymphocyte Count 1.28 X10^3/uL (0.83-4.51); Absolute Neutrophil Count 5.7 X10^3/uL (2.0-7.7); Basophil# 0.03 X10^3/uL; Basophil% 0.4 % (0-1); Eosinophil# 0.05 X10^3/uL; Eosinophils% 0.6 % (0-5); Hematocrit 40.2 % (37-47); Hemoglobin 13.1 g/dL (12.0-15.0); Lymphocyte # 1.28 X10^3/ul (0.83-4.51); Lymphocyte % 16.6 % (19-41); Mean Corp Hgb Conc 32.6 g/dL (32-36); Mean Corpuscular Hgb 30.5 pg (27.0-32.0); Mean Corpuscular Volume 93.5 fL (81-99); Monocyte# 0.67 X10^3/uL; Monocyte% 8.7 % (0-10); NRBC Flagged by Analyzer 0 % (0-5); Neutrophil # 5.66 X10^3/uL (2.7-7.7); Neutrophil % 73.4 % (47-70); Platelet Count 199 K/mm3 (150-450); RBC Distribution Width CV 12.4 % (11.6-14.6); RBC Distribution Width SD 42.5 fl (35.1-43.9); White Blood Count 7.7 K/mm3 (4.4-11.0)
[2020-12-06 11:42] VITALS: BP 122/74; PULSE 61; RESP 19; TEMP 36.6; O2SAT 99
[2020-12-06 11:58] LABS: Anion Gap 4 (5-15); BUN 11 mg/dL (7-18); BUN/Creat Ratio 17.4 RATIO (10-20); Calcium,Total 9.3 mg/dL (8.5-10.1); Chloride 107 mmol/L (98-107); Creatinine, Serum 0.63 mg/dL (0.55-1.02); EST Glomerular Filtration Rate 107 mL/min (>60); Est Glom Filt Rate - Afr Amer 130 mL/min (>60); Estimated Creatinine Clearance 99.34 ml/min; Glucose 89 mg/dL (74-106); Potassium 3.6 mmol/L (3.5-5.1); Sodium Level 139 mmol/L (136-145); Troponin-I HS 7 pg/mL (3.0-54.0)
[2020-12-06 12:00] VITALS: BP 121/68; PULSE 63; RESP 13; TEMP 36.5; O2SAT 99
--- NOTE | 2020-12-06 13:06 | EDS_ITS ---
HPI History of Present Illness Chief Complaint: Palpitations Informant: patient Onset/Context/Timing Onset: Today Context: Sudden Onset Timing: Continuous Quality: Fluttering Location: Left upper chest Worsened by: Deep breathing Relieved by: Nothing Narrative Narrative: Patient presents with palpitations and chest pressure that began today. Patient states she feels fluttering in her left upper chest. Patient states it is worse whenever she takes a deep breath. Patient states she has had palpitations in the past and was told she had PVCs. Patient states that her malt loader was considering a loop recorder for further evaluation. Patient admits to some nausea. Patient also admits to sore throat. Patient also admits to a headache. Patient denies any shortness of breath. Patient denies any fevers or chills. Prior similar symptoms: Yes PFSH PFS Medical History Abdominal pain ADD (attention deficit disorder) Asthma Bipolar disorder Blood in stool Change in bowel habit Diabetes Epigastric abdominal pain Fibromyalgia Food intolerance Hemorrhoids History of change in bowel patterns Hypertension Hypoglycemia Neuropathy PTSD (post-traumatic stress disorder) Sleep apnea SVT (supraventricular tachycardia) Home Medications budesonide-formoterol [Symbicort] 2 puff INHALATION BID 09/27/20 [History Last Taken Unknown] lamotrigine 200 mg PO DAILY 09/27/20 [History Last Taken Unknown] loratadine 10 mg PO DAILY 09/27/20 [History Last Taken Unknown] metoprolol succinate 25 mg PO DAILY 09/27/20 [History Last Taken Unknown] mineral oil 09/27/20 [History Last Taken Unknown] trazodone 50 mg PO QHS PRN 09/27/20 [History Last Taken Unknown] albuterol sulfate 90 mcg/actuation aerosol inhaler 2 puff INHALATION Q6H PRN 10/18/20 [History Last Taken Unknown] buspirone 15 mg tablet 15 mg PO BID 10/18/20 [History Last Taken Unknown] fluticasone propionate 50 mcg/actuation nasal spray,suspension 1 spray INTRANASAL BID 10/18/20 [History Last Taken Unknown] hydroxyzine HCl 25 mg tablet 50 mg PO BID PRN tab 10/18/20 [History Last Taken Unknown] Allergy/AdvReac Type Severity Reaction Status Date / Time latex Allergy Swelling Verified 04/20/19 00:18 tree nut Allergy Other Verified 12/06/20 10:52 gluten AdvReac Other Verified 04/20/19 00:18 haloperidol [From Haldol] AdvReac Other Verified 04/20/19 00:18 dogs Allergy Intermediate sore throat Uncoded 10/18/20 14:55 Family History (Updated 10/18/20 @ 14:54 by Lola Nath) Father Arthritis Alcoholism Depression Grandmother Diabetes Cancer cervical cancer Thyroid disorder Heart disease Uterine cancer Brother Cancer Leukemia Mother Alcoholism Anxiety Depression Grandfather Depression Parkinson disease Sister CVA (cerebral vascular accident) Surgical History History of left breast biopsy History of tonsillectomy history right foot surgery Social History Smoking Status: Never smoker alcohol intake: never substance use type: does not use ROS ROS ED Constitutional Constitutional ED: Denies chills or fever(s) Eyes Eyes: Denies blurry vision or change in vision ENT ENT ED: Reports sore throat; Denies rhinorrhea Cardiovascular Cardiovascular: Reports chest pain and palpitations Respiratory/Chest Respiratory/Chest: Denies cough or dyspnea Gastrointestinal Gastrointestinal: Reports nausea; Denies abdominal pain or vomiting Genitourinary Genitourinary ED: Denies dysuria or hematuria Musculoskeletal Musculoskeletal: Reports back pain and neck pain Integumentary Denies abscess or rash Neurologic Neurologic: Reports headache(s); Denies weakness Allergic/Immunologic Allergic/Immunologic ED: Denies mouth swelling or urticaria EXAM Physical Exam Const Vital Signs: 12/06/20 10:47 12/06/20 11:38 12/06/20 11:42 Temperature 97.9 F 97.9 F Temperature Source Temporal Temporal Pulse Rate 63 61 Respiratory Rate 16 19 H Respiratory Effort Normal Non-Labored Respiratory Pattern Normal Blood Pressure 123/74 H 122/74 H Blood Pressure Mean 90 90 Pulse Ox 99 99 Oxygen Delivery Method Room Air Room Air 12/06/20 12:00 12/06/20 15:11 Temperature 97.7 F L Temperature Source Temporal Pulse Rate 63 70 Respiratory Rate 13 15 Respiratory Effort Respiratory Pattern Blood Pressure 121/68 H 116/68 Blood Pressure Mean 85 Pulse Ox 99 99 Oxygen Delivery Method Room Air Positive well nourished, well developed and obese General Appearance ED: well developed Nutritional Appearance: obese HEENT Reports moist mucous membranes Neck supple and no JVD Resp normal respiratory effort and clear to auscultation bilaterally Cardio regular rate and regular rhythm GI normal to inspection, nondistended, normoactive bowel sounds and non-tender Palpation: soft Extremity normal to inspection General Extremety ED: Negative for edema or tenderness General Extremity: Negative for edema Neuro oriented x3, CN's II-XII intact bilaterally and no sensory deficits noted Sensorium / Orientation: alert Motor Exam: strength 5/5 throughout Psych mental status grossly normal MDM MDM MDM Narrative Medical decision making narrative: EKG was obtained. On my interpretation, it showed a normal sinus rhythm with a rate of 59. CA interval, QRS interval, and QTc intervals were all normal. [place] was normal. There are no acute ST or T wave changes. Portable 1 view chest x-ray was obtained. On my interpretation, lung yancey are clear. There is normal cardiac silhouette. Bony thorax is normal. There is no acute process noted. Radiologist also interpreted the x- ray and agrees. CBC and basic metabolic profile were within normal limits. Initial high-sensitivity troponin was normal. 2-hour repeat high-sensitivity troponin was normal. Patient was resting comfortably on reevaluation. Patient was advised of her findings. Patient was instructed to follow-up with her primary care physician in 5 to 7 days for further evaluation. Patient understood and was agreeable with the plan. All questions were answered. Lab Data Attestation: I reviewed the patient's lab results. Labs: Laboratory Results - last 24 hr 12/06/20 12/06/20 12/06/20 11:34 11:34 13:40 WBC 7.7 RBC 4.30 Hgb 13.1 Hct 40.2 MCV 93.5 MCH 30.5 MCHC 32.6 RDW Std Deviation 42.5 RDW Coeff of Krish 12.4 Plt Count 199 MPV 10.0 Immature Gran % (Auto) 0.300 Neut % (Auto) 73.4 H Lymph % (Auto) 16.6 L [place] % (Auto) 8.7 Eos % (Auto) 0.6 Baso % (Auto) 0.4 Absolute Neuts (auto) 5.7 Absolute Lymphs (auto) 1.28 Nucleated RBC % 0 Sodium 139 Potassium 3.6 Chloride 107 Carbon Dioxide 28.0 Anion Gap 4 L BUN 11 Creatinine 0.63 Estim Creat Clear Calc 99.34 Est GFR (MDRD) Af Amer 130 Est GFR (MDRD) Non-Af 107 BUN/Creatinine Ratio 17.4 Glucose 89 Calcium 9.3 Troponin I High Sens 7 6 Radiography Chest X-Ray - ED: 1 View, Read by ED Physician, Read by Radiologist and Normal Diagnostic Testing: Radiology Impression Chest X-Ray 12/06/20 11:07 IMPRESSION: Normal x-ray examination of the chest. Electronically Signed: Moshe Justice MD at 11:32 EDT Tel , Service support , EKG Initial EKG: Interpretation: Sinus Rhythm (59) and No Acute Injury Pattern Prior EKG tracings: available for review Prior: Unchanged (09/27/2020) Discharge Plan Triage Chief Complaint: Palpitations ED Provider: Israel Ray Dx/Rx/DC Orders Clinical Impression: Heart palpitations Instructions: ED Palpitations Prescriptions: No Action albuterol sulfate 90 mcg/actuation HFA aerosol inhaler 2 puff inhalation Q6H PRNRF: 0 fluticasone propionate 50 mcg/actuation spray,suspension 1 spray intranasal BID RF: 0 buspirone 15 mg tablet 15 mg PO BID RF: 0 lamotrigine 200 mg Tablet 200 mg PO DAILY RF: 0 trazodone 50 mg Tablet 50 mg PO QHS PRN (Reason: Nausea) RF: 0 loratadine 10 mg Tablet 10 mg PO DAILY RF: 0 budesonide-formoterol [Symbicort] 160-4.5 mcg/actuation Hfa Aerosol Inhaler 2 puff INHALATION BID RF: 0 metoprolol succinate 25 mg Capsule,Sprinkle,Er 24hr 25 mg PO DAILY RF: 0 mineral oil RF: 0 hydroxyzine HCl 25 mg tablet 50 mg PO BID PRN (Reason: Anxiety) RF: 0 Primary Care Provider: Jamar Shahid Referrals: Jamar Shahid DO [Primary Care Provider] - 5-7 Days Disposition Disposition: Home, Self Care Discharge Date/Time: 12/06/20 15:12
[2020-12-06 14:04] LABS: Troponin-I HS 6 pg/mL (3.0-54.0)
[2020-12-06 15:11] VITALS: BP 116/68; PULSE 70; RESP 15; O2SAT 99
== END 2020-12-06 15:12 | disposition home or self-care (01) ==
PROVIDERS: Emergency Provider Emergency Medicine; PCP Student in an Organized Health Care Education/Training Program
DX: R00.2 Palpitations (principal); R07.89 Other chest pain; R11.0 Nausea; J02.9 Acute pharyngitis, unspecified; R51.9 Headache, unspecified; E66.9 Obesity, unspecified; Z68.33 Body mass index [BMI] 33.0-33.9, adult; I10 Essential (primary) hypertension; I47.1 Supraventricular tachycardia; F98.8 Other specified behavioral and emotional disorders with onset usually occurring in childhood and adolescence; M79.7 Fibromyalgia; G47.30 Sleep apnea, unspecified; E11.40 Type 2 diabetes mellitus with diabetic neuropathy, unspecified; F31.9 Bipolar disorder, unspecified; F43.10 Post-traumatic stress disorder, unspecified; J45.909 Unspecified asthma, uncomplicated; Z79.899 Other long term (current) drug therapy
CPT/HCPCS: 71045; 80048; 84484; 85025; 93005; 99284; A4216

== ENCOUNTER 2021-03-05 22:48 | Emergency (ER) | payer MEDICAID, SELFPAY ==
[2021-03-05 22:49] VITALS: BP 123/75; PULSE 79; RESP 16; TEMP 36.8; O2SAT 95; BMI 35.2
--- NOTE | 2021-03-05 23:00 | RAD_ITS ---
STUDY: X-RAY CHEST REASON FOR EXAM: Female, 45 years old. Cough TECHNIQUE: Portable, upright, AP chest radiograph COMPARISON: 12/06/2020 FINDINGS: The lungs are clear and expanded. There is no demonstrated pleural abnormality. Normal size heart. Normal mediastinum and thiago. Normal visualized pulmonary arteries. Normal visualized aortic arch and descending thoracic aorta. There is no demonstrated abnormality of the visualized soft tissue structures of the upper abdomen. RAD/Chest 1 View (Portable) IMPRESSION: No acute abnormal cardiopulmonary finding. Electronically Signed: Jayy Benson MD at 0:06 EST Tel , Service support ,
--- NOTE | 2021-03-05 23:00 | EKG12_ITS ---
Test Reason : SOB Blood Pressure : / mmHG Vent. Rate : 064 BPM Atrial Rate : 064 BPM P-R Int : 118 ms QRS Dur : 086 ms QT Int : 428 ms P-R-T Axes : 037 066 055 degrees QTc Int : 441 ms Normal sinus rhythm Normal ECG Confirmed by AMBIKA HARRIS, TEO ([id number]), news copy editor IJEOMA MANZO ([id number]) on 03/07/2021 8:22:43 AM Referred By: Confirmed By:TEO APPLE MD
--- NOTE | 2021-03-05 23:03 | EX.ED.DYSGE1 ---
HPI History of Present Illness Chief Complaint: Depression Informant: patient Narrative Narrative: 45-year-old female presented to the emergency room with 3 to 4 days of cough sore throat fevers and feeling poorly. She states that the pain is so bad in her throat she just cannot keep going. She states that she is mentally unstable for the past several weeks and is feeling like she just wants to . She states that her therapist at 180 told her she should get inpatient care. That conversation took place a couple days ago. Patient has a history of anxiety, fibromyalgia, and bipolar disorder. [facility] Medical History Abdominal pain ADD (attention deficit disorder) Asthma Bipolar disorder Blood in stool Cervicalgia Change in bowel habit Chronic pain CTS (carpal tunnel syndrome) Degenerative disc disease Diabetes Epigastric abdominal pain Fibromyalgia Food intolerance Genital herpes Hemorrhoids History of change in bowel patterns Hypertension Hypoglycemia Hypokalemia Impaired fasting glucose Neurocirculatory asthenia Neuropathy Obesity PAC (premature atrial contraction) Pain of right thumb Paresthesia and pain of both upper extremities PTSD (post-traumatic stress disorder) Radiculopathy, cervical region Seasonal allergies Seizures Severe anxiety with panic Sinusitis, chronic Sleep apnea Spondylosis of cervical spine SVT (supraventricular tachycardia) SVT (supraventricular tachycardia) Home Medications lamotrigine 200 mg PO DAILY 09/27/20 [History Last Taken Unknown] loratadine 10 mg PO DAILY 09/27/20 [History Last Taken Unknown] metoprolol succinate 25 mg PO DAILY 09/27/20 [History Last Taken Unknown] trazodone 50 mg PO QHS PRN 09/27/20 [History Last Taken Unknown] albuterol sulfate 90 mcg/actuation aerosol inhaler 2 puff INHALATION Q6H PRN 10/18/20 [History Last Taken Unknown] buspirone 15 mg tablet 15 mg PO BID 10/18/20 [History Last Taken Unknown] fluticasone propionate 50 mcg/actuation nasal spray,suspension 1 spray INTRANASAL BID 10/18/20 [History Last Taken Unknown] hydroxyzine HCl 25 mg tablet 50 mg PO BID PRN tab 10/18/20 [History Last Taken Unknown] benzocaine-menthol [Cepacol Sore Throat (juan a-men)] 1 shad MUCOUS MEMBRANE Q2H PRN #32 ea 03/06/21 [Rx Last Taken Unknown] lidocaine HCl [Lidocaine Viscous] 10 ml MUCOUS MEMBRANE TID PRN #180 ml 03/06/21 [Rx Last Taken Unknown] Allergy/AdvReac Type Severity Reaction Status Date / Time latex Allergy Swelling Verified 03/05/21 22:49 tree nut Allergy Other Verified 03/05/21 22:49 gluten AdvReac Other Verified 03/05/21 22:49 haloperidol [From Haldol] AdvReac Other Verified 03/05/21 22:49 dogs Allergy Intermediate sore throat Uncoded 03/05/21 22:49 Family History Father Arthritis Alcoholism Depression Grandmother Diabetes Cancer cervical cancer Thyroid disorder Heart disease Uterine cancer Brother Cancer Leukemia Mother Alcoholism Anxiety Depression Grandfather Depression Parkinson disease Sister CVA (cerebral vascular accident) Surgical History History of left breast biopsy History of tonsillectomy history right foot surgery Social History Smoking Status: Never smoker alcohol intake: current alcohol intake frequency: a few times a week substance use type: does not use ROS ROS ED Constitutional Constitutional ED: Reports chills and fever(s); Denies weight loss Eyes Eyes: Denies change in vision or diplopia ENT ENT ED: Reports sore throat; Denies ear pain or rhinorrhea Cardiovascular Cardiovascular: Denies chest pain, orthopnea, palpitations or racing heartbeat Respiratory/Chest Respiratory/Chest: Reports cough, dyspnea and sputum; Denies orthopnea Gastrointestinal Gastrointestinal: Denies abdominal pain, diarrhea, nausea or vomiting Genitourinary Genitourinary ED: Denies dysuria, hematuria or urinary frequency Musculoskeletal Musculoskeletal: Denies arthralgias or myalgias Integumentary Denies abscess or rash Neurologic Neurologic: Reports headache(s); Denies weakness Psychiatric Psychiatric: Denies anxiety, depression, suicidal ideation or suicidal thoughts Endocrine Endocrinology: Denies polydipsia, polyphagia or polyuria Allergic/Immunologic Allergic/Immunologic ED: Denies mouth swelling, tongue swelling or urticaria EXAM Physical Exam Const Vital Signs: 03/05/21 22:49 Temperature 98.3 F Temperature Source Temporal Pulse Rate 79 Respiratory Rate 16 Blood Pressure 123/75 H Blood Pressure Mean 91 Pulse Ox 95 Oxygen Delivery Method Room Air Positive well nourished, well developed and obese General Appearance ED: well developed Nutritional Appearance: obese HEENT Reports normocephalic, head/scalp atraumatic, TM's clear and moist mucous membranes Negative for trauma Tympanic Membrane ED: Yes TM's clear Eyes PERRL and EOMs intact bilaterally Neck no lymphadenopathy, supple and no JVD Resp normal respiratory effort and clear to auscultation bilaterally Cardio regular rate, regular rhythm and no murmurs GI normal to inspection, nondistended, normoactive bowel sounds and non-tender Palpation: soft Back/Spine no CVA tenderness and normal ROM Extremity normal to inspection General Extremety ED: Negative for edema General Extremity: Negative for edema Neuro oriented x3 and CN's II-XII intact bilaterally Sensorium / Orientation: alert Motor Exam: strength 5/5 throughout Psych Mood & Affect: depressed and anxious; Negative for tearful Skin no rashes or lesions noted and no wounds MDM MDM MDM Narrative Medical decision making narrative: My interpretation of the chest x-ray is no acute process. White count is normal at 6.1. Hemoglobin 11.9 platelet count of 173. CMP is normal. Alcohol is negative. UDA is negative unfortunately she is COVID-19 positive. Patient is not requiring any supplemental oxygen. She does not appear to be suffering from severe Covid at this time. She is medically cleared for psychiatric/crisis evaluation. Crisis has been notified of the consult at approximately 0000 hours. Patient is not actively suicidal she is very frustrated with how bad her throat hurts. She has no intent or plan. I think at this point would be extremely difficult to get her placed that she is not suicidal not homicidal and she has COVID-19. I will write for some Cepacol lozenges and some viscous lidocaine for her to swish and swallow to help with her pain. Lab Data Attestation: I reviewed the patient's lab results. Labs: Laboratory Results - last 24 hr 03/05/21 03/05/21 03/05/21 23:17 23:17 23:17 WBC 6.1 RBC 3.90 L Hgb 11.9 L Hct 35.7 L MCV 91.5 MCH 30.5 MCHC 33.3 RDW Std Deviation 40.8 RDW Coeff of Krish 12.2 Plt Count 173 MPV 10.0 Immature Gran % (Auto) 1.300 H Neut % (Auto) 71.8 H Lymph % (Auto) 19.2 Mcdonough % (Auto) 7.4 Eos % (Auto) 0.0 Baso % (Auto) 0.3 Absolute Neuts (auto) 4.4 Absolute Lymphs (auto) 1.17 Nucleated RBC % 0 Sodium 142 Potassium 3.3 L Chloride 110 H Carbon Dioxide 26.0 Anion Gap 6 BUN 6 L Creatinine 0.70 Estim Creat Clear Calc 89.40 Est GFR (MDRD) Af Amer 116 Est GFR (MDRD) Non-Af 96 BUN/Creatinine Ratio 8.6 L Glucose 98 Calcium 8.3 L Total Bilirubin 0.40 AST 22 ALT 23 Alkaline Phosphatase 62 Total Protein 7.0 Albumin 3.5 Globulin 3.5 Albumin/Globulin Ratio 1.0 Serum , Qual Urine Opiates Screen Urine Methadone Screen Ur Barbiturates Screen Ur Phencyclidine Scrn Ur Amphetamines Screen U Methamphetamin-MDMA U Benzodiazepines Scrn Urine Cocaine Screen U Cannabinoids Screen Ur Drug Screen Comment Ethyl Alcohol < 3.0 03/05/21 03/06/21 23:17 00:03 WBC RBC Hgb Hct MCV MCH MCHC RDW Std Deviation RDW Coeff of Krish Plt Count MPV Immature Gran % (Auto) Neut % (Auto) Lymph % (Auto) Mcdonough % (Auto) Eos % (Auto) Baso % (Auto) Absolute Neuts (auto) Absolute Lymphs (auto) Nucleated RBC % Sodium Potassium Chloride Carbon Dioxide Anion Gap BUN Creatinine Estim Creat Clear Calc Est GFR (MDRD) Af Amer Est GFR (MDRD) Non-Af BUN/Creatinine Ratio Glucose Calcium Total Bilirubin AST ALT Alkaline Phosphatase Total Protein Albumin Globulin Albumin/Globulin Ratio Serum , Qual NEGATIVE Urine Opiates Screen NEGATIVE Urine Methadone Screen NEGATIVE Ur Barbiturates Screen NEGATIVE Ur Phencyclidine Scrn NEGATIVE Ur Amphetamines Screen NEGATIVE U Methamphetamin-MDMA NEGATIVE U Benzodiazepines Scrn NEGATIVE Urine Cocaine Screen NEGATIVE U Cannabinoids Screen NEGATIVE Ur Drug Screen Comment Ethyl Alcohol Radiography Diagnostic Testing: Clinical Impression(s) from Imaging Studies Chest X-Ray 03/05/21 23:00 IMPRESSION: No acute abnormal cardiopulmonary finding. Electronically Signed: Jayy Benson MD at 0:06 EST Tel , Service support , EKG Initial EKG: Attestation: I personally reviewed and interpreted this EKG as follows: Comments: Normal sinus rhythm with a ventricular rate of 64 bpm Discharge Plan Triage Chief Complaint: Depression ED Provider: Kyle Ro Dx/Rx/DC Orders Clinical Impression: COVID-19, Bipolar disorder, Depression Instructions: Coronavirus Disease 2019 (COVID-19): Caring for Yourself or Others, ED - COVID Monoclonal AB Infusion ... Prescriptions: New Cepacol Sore Throat (juan a-men) 15-2.6 mg lozenge 1 shad mucous membrane Q2H PRN (Reason: pain) Qty: 32 RF: 0 lidocaine HCl [Lidocaine Viscous] 2 % solution 10 ml mucous membrane TID PRN (Reason: pain) Qty: 180 RF: 0 No Action albuterol sulfate 90 mcg/actuation HFA aerosol inhaler 2 puff inhalation Q6H PRNRF: 0 fluticasone propionate 50 mcg/actuation spray,suspension 1 spray intranasal BID RF: 0 buspirone 15 mg tablet 15 mg PO BID RF: 0 lamotrigine 200 mg Tablet 200 mg PO DAILY RF: 0 trazodone 50 mg Tablet 50 mg PO QHS PRN (Reason: Nausea) RF: 0 loratadine 10 mg Tablet 10 mg PO DAILY RF: 0 metoprolol succinate 25 mg Capsule,Sprinkle,Er 24hr 25 mg PO DAILY RF: 0 hydroxyzine HCl 25 mg tablet 50 mg PO BID PRN (Reason: Anxiety) RF: 0 Other Ambulatory Orders: COVID Outpatient Monoclonal Antibody Referral (Routine) Timeframe: 1 Day Facility: [facility] - Location: [facility] Ordered By: Dr. Kyle Ro Primary Care Provider: Shelli Franco Referrals: Counseling,Center [GROUP OF PHYSICIANS] - As soon as possible Shelli Franco MD [Primary Care Provider] - As Needed Disposition Disposition: Home, Self Care
[2021-03-05 23:35] LABS: Absolute Lymphocyte Count 1.17 X10^3/uL (0.83-4.51); Absolute Neutrophil Count 4.4 X10^3/uL (2.0-7.7); Basophil# 0.02 X10^3/uL; Basophil% 0.3 % (0-1); Hematocrit 35.7 % (37-47); Hemoglobin 11.9 g/dL (12.0-15.0); Lymphocyte # 1.17 X10^3/ul (0.83-4.51); Lymphocyte % 19.2 % (19-41); Mean Corp Hgb Conc 33.3 g/dL (32-36); Mean Corpuscular Hgb 30.5 pg (27.0-32.0); Mean Corpuscular Volume 91.5 fL (81-99); Monocyte# 0.45 X10^3/uL; Monocyte% 7.4 % (0-10); NRBC Flagged by Analyzer 0 % (0-5); Neutrophil # 4.36 X10^3/uL (2.7-7.7); Neutrophil % 71.8 % (47-70); Platelet Count 173 K/mm3 (150-450); RBC Distribution Width CV 12.2 % (11.6-14.6); RBC Distribution Width SD 40.8 fl (35.1-43.9); White Blood Count 6.1 K/mm3 (4.4-11.0)
[2021-03-05 23:42] LABS: AST(SGOT) 22 U/L (15-37); Alanine Aminotransfer ALT/SGPT 23 U/L (13-56); Albumin, Serum 3.5 g/dL (3.2-5.0); Alkaline Phosphatase 62 U/L (45-117); Anion Gap 6 (5-15); BUN 6 mg/dL (7-18); BUN/Creat Ratio 8.6 RATIO (10-20); Calcium,Total 8.3 mg/dL (8.5-10.1); Chloride 110 mmol/L (98-107); EST Glomerular Filtration Rate 96 mL/min (>60); Est Glom Filt Rate - Afr Amer 116 mL/min (>60); Globulin 3.5 g/dL (2.2-4.2); Glucose 98 mg/dL (74-106); Potassium 3.3 mmol/L (3.5-5.1); Sodium Level 142 mmol/L (136-145)
[2021-03-05 23:48] LABS: Internal QC Validated? YES +Cl - CLEAR BKGD; Pregnancy, Serum, hCG Quali. NEGATIVE Negative
[2021-03-05 23:50] LABS: Alcohol, Blood (Medical)-Serum < 3.0 mg/dL
--- NOTE | 2021-03-05 23:57 | NURSING ---
CALLED CRISIS AT [phone]
[2021-03-06 00:24] LABS: Amphetamine Urine VISTA NEGATIVE (<1000 ng/mL); Barbiturate Urine VISTA NEGATIVE (< 200 ng/mL); Benzodiazepine Urine VISTA NEGATIVE (< 200 ng/mL); Cocaine Urine VISTA NEGATIVE (< 300 ng/mL); Ecstacy Urine VISTA NEGATIVE (< 500 ng/mL); Methadone Urine VISTA NEGATIVE (< 300 ng/mL); PCP Urine VISTA NEGATIVE (< 25 ng/mL); THC Urine VISTA NEGATIVE (< 50 ng/mL); Vista UDS pH Range 6
--- NOTE | 2021-03-06 01:07 | ED.RN ---
Per Dr. Ro, sitter can be discontinued as PT is going home on care plan as discussed with Myrna from Crisis.
--- NOTE | 2021-03-06 01:09 | ED.RN ---
crisis spoke with pt and will discharge pt home with care plan, d/c yael at this time.
[2021-03-06] MEDS: Acetaminophen 500 MG Tablet 1000 MG PO (01:11)
[2021-03-06] MEDS: BENZOCAINE/MENTHOL 1 LOZENGE MUCOUS MEM (01:11)
[2021-03-06] MEDS: Mag Hydrox/Al Hydrox/Simeth 30 ML UDC PO (01:12)
== END 2021-03-06 02:22 | disposition home or self-care (01) ==
PROVIDERS: Emergency Provider Emergency Medicine; PCP Internal Medicine
DX: U07.1 COVID-19 (principal); F31.9 Bipolar disorder, unspecified; E66.9 Obesity, unspecified; Z68.35 Body mass index [BMI] 35.0-35.9, adult; I10 Essential (primary) hypertension; F98.8 Other specified behavioral and emotional disorders with onset usually occurring in childhood and adolescence; M79.7 Fibromyalgia; G40.909 Epilepsy, unspecified, not intractable, without status epilepticus; F43.10 Post-traumatic stress disorder, unspecified; G47.30 Sleep apnea, unspecified; G56.00 Carpal tunnel syndrome, unspecified upper limb; G89.29 Other chronic pain; E11.40 Type 2 diabetes mellitus with diabetic neuropathy, unspecified; J45.909 Unspecified asthma, uncomplicated; Z87.19 Personal history of other diseases of the digestive system; Z79.899 Other long term (current) drug therapy
CPT/HCPCS: 71045; 80053; 80307; 82077; 84703; 85025; 87426; 93005; 99282; A4216

== ENCOUNTER 2021-03-08 15:15 | Outpatient (CLI) | payer MEDICAID, SELFPAY ==
[2021-03-08] MEDS: 0.9% Saline Lock 10 ML Syringe IV (15:43)
[2021-03-08 15:48] VITALS: BP 127/79; PULSE 66; RESP 16; TEMP 36.7; O2SAT 96; BMI 35.2
[2021-03-08 16:28] VITALS: BP 113/77; PULSE 60; RESP 16; TEMP 36.9; O2SAT 95
[2021-03-08 17:14] VITALS: BP 135/77; PULSE 58; RESP 16; TEMP 36.4; O2SAT 96
== END 2021-03-08 17:28 | disposition home or self-care (01) ==
LOC: MS3OUT 15:15 → MS3 15:16
PROVIDERS: PCP Internal Medicine; Referring Provider Nurse Practitioner Adult Health; Visit Provider Nurse Practitioner Adult Health
DX: Z23 Encounter for immunization (principal); U07.1 COVID-19
CPT/HCPCS: J7050; M0245; Q0245; A4216

== ENCOUNTER 2021-03-21 15:30 | Outpatient (RCR) | payer MEDICAID, SELFPAY ==
--- NOTE | 2021-02-11 17:24 | HP.OTEVAL ---
Patient's Visit Information ETHEL AVITIA is a 45 year old F, referred to Occupational Therapy by ENRIQUE Lazo, with a diagnosis of right 1st CMC arthroplasty, right DeQuervain's tenosynovitis. Date of Evaluation: 02/11/21 Occupational Therapist: Beverly Smyth, HARPER/Genaro, CHT - Subjective pt arrives 18 min late to apt. This 45 year old female was seen for OT eval with dx of right 1st cmc arthritis, mild DeQuervain's tenosynovitis. pt states pain in right hand since 2019. pt states she has good and bad days. Pt is left handed. 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 pt state Dr. chaudhry recommend a cortisone shot for her DeQuervain's but pt declined. pt states last cortisone shot for a shoulder about 4 years ago and she did not like how it made her feel so when offered cortisone shot for her wrist/thumb she refused. pt would like to decrease her pain to return to her PLOF. - Pain right hand 1 Pain Intensity Range: 4 - ROM Wrist: right 65/69 left 75/60 CMC: right 10 left 10 MP: right 50 left 60 IP: right 60 left 65 Radial Abduction: right 40 left 60 - Strength Weaving Supervisor: right 75# left 80# Lateral Pinch: right 8# left 8# Tripod Pinch: right2# left 6# - Sensation Sensation Comments: denies - Quick DASH-Disab of Arm,Shoulder& Hand Quick DASH Score: 48.3325 - Goals Goal:: pt will demo a increase in pts lateral and tripod pinch by 3# to increase pts ind, with ADLs and IADls by dc. Goal:: pt will demo right wrist ROM equal to left by d/c to increase pts ind. with ADLS and IADLs by d.c Goal:: pt will report no pain greater than 2/10 with use of right hand with ADLs and IADLs by dc Goal:: pt will demo understanding of joint protection edgar, ad. eq. to decrease stress on joint with ADLS by D/C Goal:: pt will demo understanding of using orthosis by end of 4th session to limit stress of tendon and joint. - Rehabilitation General Assessment: pt demo with limited ROM and pain with functional use of right hand with tasks. Pt would benefit from skilled OT services 2-3x week for 6 weeks to decrease pts pain and return to a ROMÁN with ADls and work tasks. Today therapist ed. pt on wrist erog. and limiting use of a grasp with wrist in a flexed position- pt demo understanding- therapist also ed, pt on need of supportive brace or orthosis for CMC for heavy work tasks- pt was receptive but will think about use- Therapist did give pt joint protection handout and will continue to advise pt as needed. pt demo understanding and agree to POC. Rehabilitation Potential: Good - Anticipated Interventions A/AAROM/PROM, Strengthening, Triggerpoint Release, Modalities, Orthoses, Joint Protection/Energy Conservation, Education re assistive Equipment, Education re Diagnosis, Home Program - Visit Plan Frequency: 2-3x /Week Duration: 4 Weeks General Plan: initiate ed. on joint protection edgar. ad. eq. as needed. ed. on need of thumb spica brace or orthosis to rest wrist and thumb together- OT may fabricate one if pt agrees. will initiate US to decrease pain and increase healing-. and PRE with isometric and eccentric ex. TEXT: Thank you for the opportunity to evaluate your patient. For Medicare and Medicare HMO plans, please review the plan of care and approve it. It will need to be FAXED BACK to us at [phone] for Medicare purposes. Please let me know if there are questions or concerns regarding this plan of care. Physician Signature: Date:
--- NOTE | 2021-03-21 16:03 | HP.OTDCSUM ---
It has been my pleasure to treat ETHEL AVITIA under orders from ENRIQUE Lazo, for the diagnosis of right 1st CMC OA, right DeQuervain's tenosynovitis for a total of 8 visit(s). Please see the following information for a summary of their discharge status. % Improvement: 85 Objective/Function: right wrist 65/50. right CMC 15*. right MPJ 60*. right IPJ 65*. 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 right lateral pinch 12# increase from 8#. right tripod pinch 8# increase from 2#. pt has made gains with increase thumb stability and decrease pain- pt has increased ind. with ADls and will continue with her HEP and use of joint protection- Patient Goals: Regain Strength, Decrease Pain, Use Hand/Wrist/Arm Normally Again, Be More Independent in ADLS Goal:: pt will demo a increase in pts lateral and tripod pinch by 3# to increase pts ind, with ADLs and IADls by dc. Goal:: pt will demo right wrist ROM equal to left by d/c to increase pts ind. with ADLS and IADLs by d.c Goal:: pt will report no pain greater than 2/10 with use of right hand with ADLs and IADLs by dc Goal:: pt will demo understanding of joint protection edgar, ad. eq. to decrease stress on joint with ADLS by D/C Goal:: pt will demo understanding of using orthosis by end of 4th session to limit stress of tendon and joint. Plan: D/C Discharge Comments: pt demo understanding of joint protection - thumb stabilization exercise and use of orthosis to provide support and protection- pt has made gains in strength and pain has decreased typically 2/3 - pt states she feels she has returned to performing her ADls and IADLS at ind. level. pt to continue with her HEP and use of orthosis with heavy tasks - pt did meet OT goals and is d/c with her HEP pt agree to POC. If there are questions or concerns regarding this patient's occupational therapy, please fell free to call me at [phone]. Thank you for the referral of this patient. Sincerely, Beverly Smyth, OTR/L, CHT
== END 2021-03-21 19:00 | disposition home or self-care (01) ==
LOC: OT 15:30
PROVIDERS: PCP Internal Medicine; Referring Provider Physician Assistant; Visit Provider Physician Assistant
DX: M19.09 Primary osteoarthritis, other specified site (principal); M65.9 Synovitis and tenosynovitis, unspecified
CPT/HCPCS: 97035; 97110; 97166; 97530; 97760

== ENCOUNTER → 2021-04-02 11:33 | Outpatient (CLI) | payer MEDICAID, SELFPAY ==
--- NOTE | 2021-04-02 11:52 | RAD_ITS ---
STUDY: X-RAY - LUMBAR SPINE REASON FOR EXAM: Female, 45 years old. Low back pain TECHNIQUE: 3 view(s) of the lumbar spine were obtained. COMPARISON: None FINDINGS: Normal lumbar lordosis. There is no substantial scoliosis. There is a normal alignment of the vertebrae. There is multilevel endplate spondylosis of the lumbar vertebrae. Mild disc space narrowing. There is no demonstrated fracture. The soft tissue structures are unremarkable. RAD/Lumbar Spine 2 or 3 Views IMPRESSION: Mild degenerative changes, no acute findings Electronically Signed: Pablito Woods MD at 12:19 EST , Service support ,
[2021-04-02 13:16] LABS: Anion Gap 6 (5-15); BUN 12 mg/dL (7-18); BUN/Creat Ratio 16.5 RATIO (10-20); Calcium,Total 8.7 mg/dL (8.5-10.1); Chloride 105 mmol/L (98-107); Creatinine, Serum 0.73 mg/dL (0.55-1.02); EST Glomerular Filtration Rate 91 mL/min (>60); Est Glom Filt Rate - Afr Amer 110 mL/min (>60); Glucose 87 mg/dL (74-106); Magnesium 2.1 mg/dL (1.6-2.6); Sodium Level 140 mmol/L (136-145)
== END ==
PROVIDERS: PCP Internal Medicine; Referring Provider Internal Medicine; Visit Provider Internal Medicine
DX: M54.9 Dorsalgia, unspecified (principal); E87.6 Hypokalemia; G89.29 Other chronic pain
CPT/HCPCS: 36415; 72100; 80048; 83735

== ENCOUNTER 2021-05-24 10:30 | Outpatient (RCR) | payer MEDICAID, SELFPAY ==
--- NOTE | 2021-04-10 16:33 | HP.PTEVAL ---
Patient's Visit Information ETHEL AVITIA is a 45 year old F referred to Physical Therapy by Dr. Shelli Franco MD with a diagnosis of LOW BACK PAIN ,CHRONIC PAIN. Date of Evaluation: 04/10/21 Physical Therapist: Grover Dan PT, Cert MDT, OCS - Visit Plan Frequency: 2x /Week Duration: 4 Weeks Plan: PRECAUTION: LATEX ALLERGY. PT INTERVETIONS POSTURAL EX'S ,DLS ABD/BACK ,ACTIVITY MODIFICATION AND MODALTIES NEEDED - Subjective This 45 y/o female presents to physical therapy with lumbar pain. Patient has had lumbar pain ~ 6 years which has progressively worse . Patient seen DR alan ,did x-rays -. Location of pain symmetrical Lumbar occasional to hips. Aggravating standing ,walking, lifting . Alleviating factors rest siting. Denies paresthesia/tingling. Denies bowel/bladder -. Coughing/sneezing -. No prior PT but had chiropractor. Pain is worse at night. Pain affects QOL and function. Patient has thumb DJD CMC and tendonitis. PRECATION: latex alergy. SOCAIL: single. 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 GAIT: reciprocal pattern. NEURO: denies paresthesia/tingling ,reflexes L3-4,L4-5 ,L5-S1 1/3. SYMTRIES: align. PALAPTION: SI joint. MMT: quad/hams 4/5,hip 4/5,ankle 4/5. LUMBAR ROM: flexion WFL ,extension mod loss pain, side glides min loss. FLEXABITY: ER/IR WNL, hamstrings WNL - Special Tests L/S Slump test left side: Negative L/S Slump test right side: Negative L/S Left Straight Leg Raise: Negative L/S Right Straight Leg Raise: Negative Lumbar Standing: Flexion - Mechanical Response: No effect Lumbar Standing: Flexion - Symptoms During Testing: No effect Lumbar Standing: Flexion - Symptoms After Testing: No effect Lumbar Standing: Extension - Mechanical Response: No effect Lumbar Standing: Extension - Symptoms During Testing: Increases Lumbar Standing: Extension - Symptoms After Testing: Worse Lumbar Standing: Right Side Glides - Mechanical Response: No effect Lumbar Standing: Right Side [place] - Symptoms During Testing: No effect Lumbar Standing: Right Side [place] - Symptoms After Testing: No effect Lumbar Standing: Left Side [place] - Mechanical Response: No effect Lumbar Standing: Left Side [place] - Symptoms During Testing: No effect Lumbar Standing: Left Side [place] - Symptoms After Testing: No effect - Balance/Special Test Scores Oswestry Low Back Score: 29 - Goals Goal 1:: Improve posture/body mechanics for ADLS' 80% of the time Goal Time Frame: 4-6 Weeks Goal 2:: Patient to be I with HEP to manage pain Goal Time Frame: 4-6 Weeks Goal 3:: Patient to demonstrate 50 % improvement with decrease back pain Goal Time Frame: 4-6 Weeks Goal 4:: Patient improve back owestry score by 5 points to improve QOL Goal 5:: Patient improve ability to walk and stand with min c/os of pain to perform housework > 1 hr Goal Time Frame: 4-6 Weeks - Rehabilitation Potential Physical Therapy Diagnosis: This patient has symmetrical lumbar pain worse on left with poor extension ,unable to tolerate abdominal testing with legs extended ,pain with positioning and motion testing thus benefit from skilled PT. Rehabilitation Potential: Good - Anticipated Interventions Patient/Client Instruction: Educate patient on: Condition, Plan of Care For the Purpose of:: To decrease pain, To increase ROM, To increase oxygenation perfusion, To improve ability to perform ADL's, To increase tolerance to activity/condition/position, To improve performance and independence with ADL's, To improve ability of physical actions for home/community/work/leisure, To improve health of tissue, To decrease soft tissue restriction, To increase flexibility/ROM, To reduce risk of recurrence, To improve self management, To prevent re-injury Therapeutic Exercise to Include: Strength training, Body mechanics, Postural training, Flexibilty training, Dynamic Lumbar Stabilization For the Purpose of:: To decrease pain, To increase ROM, To improve muscle performance and motor function, To increase tolerance to activity/condition/position, To improve ability of physical actions for home/community/work/leisure, To improve health of tissue, To decrease soft tissue restriction, To reduce risk of recurrence, To prevent re-injury TENS: Yes IF ES: Yes Thermo therapy (hot pack): Yes Ultrasound (thermal/non thermal): Yes For the Purpose of:: To decrease pain, To increase ROM, To improve health of tissue, To decrease soft tissue restriction Thank you for the opportunity to evaluate your patient. For Medicare and Medicare HMO plans, please review the plan of care and approve it. It will need to be FAXED BACK to us at [phone] for Medicare purposes. For Medicare only, by signing this I certify the plan of care. Please let me know if there are questions or concerns regarding this plan of care. Physician Signature: Date:
== END 2021-05-24 19:00 | disposition home or self-care (01) ==
LOC: PT 10:30
PROVIDERS: PCP Internal Medicine; Referring Provider Internal Medicine; Visit Provider Internal Medicine
DX: M54.50 Low back pain, unspecified (principal); G89.29 Other chronic pain
CPT/HCPCS: 97110; 97162; 97530

== ENCOUNTER 2021-05-27 08:30 | Outpatient (RCR) | payer MEDICAID, SELFPAY ==
--- NOTE | 2021-05-27 10:05 | BH.SGPN.GN ---
Behaviors/Verbalizations/Mental Status: []Client alert and oriented, casually dressed and groomed. Eye contact good. Motor activity appropriate. Speech within normal limits. Affect congruent, mood euthymic. Thoughts linear, logical, no signs of hallucinations or delusions. Client Response/Progress/Benefit: []Client responded well to session AEB sharing and listening attentively to others. This is client?s first day of IOP treatment. Client participated in group discussion defining anxiety, stating that anxiety comes from our biological fight or flight response. Client identified racing thoughts as a cognitive impact of anxiety. Group discussed the impacts of anxiety, its benefits, as well as when it becomes abnormal.Clinician provided psychoeducation on anxiety diagnoses and the anxiety triangle of physical symptoms, safety behaviors, and common anxious thoughts. Client appeared to benefit from increased knowledge of anxiety diagnoses and causes, as well as improved self awareness of anxiety symptoms. Will continue IOP treatment to increase healthy coping skills and prevent decompensation to improve daily functioning. Narrative Note: []
--- NOTE | 2021-05-27 10:55 | BH.COMM ---
Communication Note - Communication with Client Communication Note: Met with patient to complete initial paperwork for IOP. No significant changes since pre-admission screening. Completed [place] Suicide Screening and presents as moderate-high risk. Reports having fleeting suicidal ideations with thoughts of taking pills within the past month and most recently last night. Reports a ?stranger helping me with my broken-down car? talked her out of hurting herself last night. Denies any suicidal ideations, plan, or intent today and is future oriented. Pt stated a lot of her suicidal ideations are passive, stating, ?I wish my would have just shot me? and wishing she could get high and not wake up. Denies any history of actual suicide attempts. History of one interrupted attempt last June 2020 when pt was going to overdose on pills, but a friend stopped pt. Pt reports she will call a support before she acts. Last night pt was on the phone with her mother and told her mother about her SI when the stranger helped her. Protective factor is her daughter. Reports no access to weapons or stockpiles of medications. Reports ability to maintain safety today. Case discussed with Dr. Kang with plan to admit to IOP with dx of Schizoaffective disorder, depressed type F 25.1
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
--- NOTE | 2021-05-29 11:05 | BH.SGPN.GN ---
Behaviors/Verbalizations/Mental Status: []Client alert and oriented, casually dressed and groomed. Eye contact good. Motor activity appropriate. Speech within normal limits. Affect constricted, mood dysthymic, irritable. Thoughts linear, logical, no signs of hallucinations or delusions. Client Response/Progress/Benefit: []Pt was engaged throughout AEB participating in discussion and taking notes. Pt experienced slight frustration during the activity and did well to participate and work through those emotions. Contributed as group brainstormed healthy coping skills for better managing anger which included: deep breathing, counting, exercise, DDD, and looking at the consequences of responding in anger. Pt appeared to benefit from identifying different techniques to manage anger as well as gaining awareness of the costs of anger. Pt reported when their anger is unmanaged, pt can become aggressive and she yells. Pt selected using art and asking herself of the pros and cons to better manage anger. Will continue IOP tx to prevent decompensation, reduce impulsivity, and increase emotional regulation skills. Narrative Note: []
[2021-05-29 11:44] VITALS: BP 140/93; PULSE 68
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
--- NOTE | 2021-05-29 12:47 | BH.PSY.EVA_ITS ---
Initial Treatment Plan Patient Information Visit Information: ADMISSION DATE: EXPECTED LOS: 4-6 weeks Problems/Symptoms Problem #1:: Mood instability Symptom:: Depression, sadness, hopelessness, worthlessness, anhedonia, low energy, decreased concentration, fleeting passive suicidal ideation, low motivation Symptom:: Episodes of impulsivity, increased cleaning, decreased sleep, imp ulsive, risky sexual behavior Problem #2:: Anxiety Symptom:: Worry, rumination, nightmares, flashbacks, reexperiencing, avoidance, dissociation
--- NOTE | 2021-06-03 08:39 | BH.COMM ---
Communication Note - Communication with Client Communication Note: Spoke with pt this morning as pt left a voicemail stating she wanted to voluntarily admit herself to a psychiatric hospital. Pt reported feeling overwhelmed and is not getting sleep. Pt stated she is worried that if she does not go inpatient, pt will hurt herself. Pt reported she was in the process of calling her psychiatrist to ask about the process of hospitalization. Pt's outpatient psychiatrist is affiliated with [facility], so there is a chance pt can be directly admitted. Pt was offered to come to IOP this morning, but pt shared she wants to work on getting admitted. Pt was encouraged to go to the ER and pt shared she is going to call for a ride. Pt was cooperative and motivated. Pt stated she wants the help stating this is what I need right now and was future oriented. Pt denied any active suicidal ideation, plan, or intent to this therapist and shared no, I'm not suicidal right now. Pt did not present with any psychosis and her thought pattern was linear and logical. Pt does not have access to weapons at home and did not appear as an imminent threat to herself. Therapist will follow up with pt today.
--- NOTE | 2021-06-03 15:33 | BH.COMM ---
Communication Note - Communication with Client Communication Note: Pt had planned to voluntarily admit herself due to feeling overwhelmed, not sleeping, and worry of developing SI. Pt was to keep IOP staff informed as pt was attempting to contact her outpatient psychiatrist (see previous communication note). However, by the afternoon, IOP staff did not hear back from pt after attempting to contact pt and leaving messages three times. This therapist called for a wellness check by Gemma CHANCE. Gemma CHANCE completed the wellness check and called this therapist around 3:00pm. [employer]ma CHANCE officer told this therapist they spoke with pt, she is safe and not suicidal. Gemma CHANCE officer reported pt told him I'm waiting for my neighbor to come home to watch my rabbit for me before pt goes to the ER. Per interaction, pt did not appear as a risk to herself or others.
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
== END 2021-06-03 23:59 | disposition home or self-care (01) ==
LOC: BHIOP 08:30
PROVIDERS: PCP Internal Medicine; Visit Provider Psychiatry & Neurology Psychiatry
DX: F31.81 Bipolar II disorder (principal); F43.10 Post-traumatic stress disorder, unspecified; Z79.899 Other long term (current) drug therapy
CPT/HCPCS: 90792; H2012; S9480; T1002; 90832

== ENCOUNTER 2021-06-04 07:57 | Outpatient (RCR) | payer MEDICAID, SELFPAY ==
[2021-06-04 00:44] VITALS: BP 140/93; PULSE 68
--- NOTE | 2021-06-14 10:15 | BH.SGPN.GN ---
Addendum entered and electronically signed by ELIZABETH Silva 07/25/21 09:08: Pt note entered in incorrect chart by error. Please see documentation in chart dated for 06/12/21. Original Note: Behaviors/Verbalizations/Mental Status: []Client alert and oriented, casually dressed and groomed. Eye contact good. Motor activity appropriate. Speech within normal limits. Affect congruent, mood euthymic. Thoughts linear, logical, no signs of hallucinations or delusions. Client Response/Progress/Benefit: []Client responded well to session AEB sharing and listening attentively to others. Client participated in activity illustrating how positive and negative perspectives affect how individuals view situations, sharing observations and insights. Group discussed and defined perspective and what impacts it, with client contributing past experiences as an example. Client identified that a negative perspective ?pulls me down?, whereas a positive perspective ?keeps me going and gives me energy?. Appeared to benefit from increased knowledge and self-awareness of perspective. Will continue IOP treatment to increase mood stability and decrease negative self talk to improve daily functioning. Narrative Note: []
== END 2021-06-04 11:25 ==
LOC: BHIOP 07:57
PROVIDERS: PCP Internal Medicine; Visit Provider Psychiatry & Neurology Psychiatry
DX: Z00.00 Encounter for general adult medical examination without abnormal findings (principal)

== ENCOUNTER 2021-06-07 18:37 | Emergency (ER) | payer MEDICAID, SELFPAY ==
[2021-06-07 18:38] VITALS: PULSE 81; RESP 18; TEMP 35.9; O2SAT 95; BMI 35.6
--- NOTE | 2021-06-07 19:04 | EDS_ITS ---
HPI History of Present Illness Chief Complaint: Nausea/Vomiting/Diarrhea Informant: patient Narrative Narrative: Presents from EMS from home acute diarrhea vomiting an hour prior to arrival. Started with diarrhea. Nonbloody. Total of 8 so far denies any recent antibiotics. To emesis with no hematemesis. Abdominal cramping. Patient discharged from [facility] earlier today for 5-day stay for her bipolar. Her Zoloft was increased. She states she ate lunch at the facility and did not taste abnormal. No urinary symptoms. No fevers. [facility] Medical History Abdominal pain ADD (attention deficit disorder) Alcohol use disorder Asthma Bipolar 2 disorder Blood in stool Cervicalgia Change in bowel habit Chronic back pain Chronic pain CTS (carpal tunnel syndrome) Degenerative disc disease Diabetes Epigastric abdominal pain Fibromyalgia Food intolerance Genital herpes Hemorrhoids History of change in bowel patterns Hypertension Hypoglycemia Hypokalemia Impaired fasting glucose Neurocirculatory asthenia Neuropathy Obesity PAC (premature atrial contraction) Pain of right thumb Paresthesia and pain of both upper extremities PTSD (post-traumatic stress disorder) PTSD (post-traumatic stress disorder) Radiculopathy, cervical region Seasonal allergies Seizures Severe anxiety with panic Sinusitis, chronic Sleep apnea Spondylosis of cervical spine SVT (supraventricular tachycardia) SVT (supraventricular tachycardia) Home Medications loratadine 10 mg PO DAILY 09/27/20 [History Last Taken Unknown] metoprolol succinate 25 mg PO DAILY 09/27/20 [History Last Taken Unknown] fluticasone propionate 50 mcg/actuation nasal spray,suspension 1 spray INTRANASAL BID 10/18/20 [History Last Taken Unknown] hydroxyzine HCl 25 mg tablet 25 - 75 mg PO BID PRN tab 10/18/20 [History Last Taken Unknown] lamotrigine 200 mg tablet 200 mg PO DAILY #90 tab 03/11/21 [Rx Last Taken Unkn own] trazodone 50 mg tablet 50 mg PO QHS PRN #90 tab 03/11/21 [Rx Last Taken Unknown] albuterol sulfate 90 mcg/actuation aerosol inhaler 2 puff INHALATION Q6H PRN #8.5 g 03/15/21 [Rx Last Taken Unknown] budesonide-formoterol [Symbicort] 1 inh INHALATION DAILY 05/29/21 [History Last Taken Unknown] buspirone [BuSpar] 20 mg PO BID 05/29/21 [History Last Taken Unknown] sertraline [Zoloft] 50 mg PO DAILY 05/29/21 [History Last Taken Unknown] valacyclovir [Valtrex] 500 mg PO DAILY 05/29/21 [History Last Taken Unknown] dicyclomine 20 mg PO TID #10 tab 06/07/21 [Rx Last Taken Unknown] ondansetron 4 mg PO Q6H PRN #10 tab 06/07/21 [Rx Last Taken Unknown] Allergy/AdvReac Type Severity Reaction Status Date / Time mold Allergy Intermediate wheezing Verified 06/07/21 18:42 tree and shrub pollen Allergy Intermediate sneezing Verified 06/07/21 18:42 latex Allergy Swelling Verified 06/07/21 18:42 gluten AdvReac Other Verified 06/07/21 18:42 haloperidol [From Haldol] AdvReac Other Verified 06/07/21 18:42 Family History Father Arthritis Alcoholism Depression Grandmother Diabetes Cancer cervical cancer Thyroid disorder Heart disease Uterine cancer Brother Cancer Leukemia Mother Alcoholism Anxiety Depression Grandfather Depression Parkinson disease Sister CVA (cerebral vascular accident) Surgical History History of left breast biopsy History of tonsillectomy history right foot surgery Social History Smoking Status: Never smoker alcohol intake: current alcohol intake frequency: a few times a week substance use type: does not use ROS ROS ED Constitutional Constitutional ED: Denies chills, fever(s) or sweats Eyes Eyes: Denies change in vision ENT ENT ED: Denies dysphagia or sore throat Cardiovascular Cardiovascular: Denies chest pain, leg edema, palpitations or racing heartbeat Respiratory/Chest Respiratory/Chest: Denies cough, dyspnea or dyspnea on exertion Gastrointestinal Gastrointestinal: Reports abdominal pain, diarrhea, nausea and vomiting Genitourinary Genitourinary ED: Denies dysuria, hematuria or urinary frequency Musculoskeletal Musculoskeletal: Denies back pain, extremity pain or neck pain Integumentary Denies rash or wounds Neurologic Neurologic: Denies headache(s), paresthesias or weakness EXAM Physical Exam Const Vital Signs: 06/07/21 18:38 06/07/21 22:06 Temperature 96.6 F L Temperature Source Temporal Pulse Rate 81 72 Respiratory Rate 18 16 Blood Pressure 134/88 H Pulse Ox 95 96 Oxygen Delivery Method Room Air Patient tearful, nontoxic. Positive well nourished and well developed General Appearance ED: well developed HEENT Reports moist mucous membranes normocephalic and atraumatic Eyes PERRL, EOMs intact bilaterally and conjunctivae normal General Eye ED: Yes normal appearance of both eyes Neck no lymphadenopathy and supple General: Negative for tenderness Chest Wall Chest: Negative for tenderness Resp normal respiratory effort and normal air movement Effort and Inspection: symmetric chest movement; Negative for respiratory distress Cardio regular rate, regular rhythm and no murmurs Peripheral Pulses: pulses 2+ throughout GI normal to inspection, nondistended, normoactive bowel sounds GI Narrative: Mild lower abdominal tenderness, negative Crouch's or McBurney's tenderness. Palpation: Negative for guarding or rebound tenderness present Back/Spine no CVA tenderness and no thoracic nor lumbar tenderness Extremity normal to inspection General Extremety ED: Negative for edema or tenderness General Extremity: Negative for edema Neuro oriented x3 and no sensory deficits noted Sensorium / Orientation: awake and alert Skin no rashes or lesions noted and no wounds MDM MDM MDM Narrative Medical decision making narrative: Patient with acute diarrhea and vomiting. Nonsurgical abdomen. IVs placed fluids basic labs were normal. She had some loose stools in the ED. She has no upper C. difficile risk factors top of white count being at 8.0. Clinically is feeling better after treatment with Bentyl and Zofran. She is tolerating oral intake. Prescription for Zofran discussed likely viral syndrome at this point. To continue oral hydration with return precautions. Discharged with outpatient follow-up. All questions answered. Lab Data Attestation: I reviewed the patient's lab results. Labs: Laboratory Results - last 24 hr 06/07/21 06/07/21 19:30 19:30 WBC 8.0 RBC 4.33 Hgb 14.1 Hct 40.6 MCV 93.8 MCH 32.6 H MCHC 34.7 RDW Std Deviation 42.0 RDW Coeff of Krish 12.2 Plt Count 254 MPV 9.8 Immature Gran % (Auto) 0.400 Neut % (Auto) 89.4 H Lymph % (Auto) 4.9 L [place] % (Auto) 4.8 Eos % (Auto) 0.4 Baso % (Auto) 0.1 Absolute Neuts (auto) 7.1 Absolute Lymphs (auto) 0.39 L Nucleated RBC % 0 Sodium 140 Potassium 4.2 Chloride 109 H Carbon Dioxide 26.0 Anion Gap 5 BUN 14 Creatinine 0.78 Estim Creat Clear Calc 79.37 Est GFR (MDRD) Af Amer 101 Est GFR (MDRD) Non-Af 83 BUN/Creatinine Ratio 17.9 Glucose 122 H Calcium 8.9 Discharge Plan Triage Chief Complaint: Nausea/Vomiting/Diarrhea ED Provider: Shailesh Adler Dx/Rx/DC Orders Clinical Impression: Nausea vomiting and diarrhea Instructions: ED Gastroenteritis, Viral (Adult) Prescriptions: New ondansetron 4 mg tablet,disintegrating 4 mg PO Q6H PRN (Reason: nausea and vomiting) Qty: 10 RF: 0 dicyclomine 20 mg tablet 20 mg PO TID Qty: 10 RF: 0 No Action fluticasone propionate 50 mcg/actuation spray,suspension 1 spray intranasal BID RF: 0 albuterol sulfate 90 mcg/actuation HFA aerosol inhaler 2 puff inhalation Q6H PRN (Reason: Shortness Of Breath) Qty: 8.5 RF: 1 loratadine 10 mg Tablet 10 mg PO DAILY RF: 0 metoprolol succinate 25 mg Capsule,Sprinkle,Er 24hr 25 mg PO DAILY RF: 0 hydroxyzine HCl 25 mg tablet 25 - 75 mg PO BID PRN (Reason: Anxiety) RF: 0 valacyclovir [Valtrex] 500 mg Tablet 500 mg PO DAILY RF: 0 buspirone [BuSpar] 10 mg Tablet 20 mg PO BID RF: 0 budesonide-formoterol [Symbicort] 160-4.5 mcg/actuation Hfa Aerosol Inhaler 1 inh INHALATION DAILY RF: 0 sertraline [Zoloft] 50 mg Tablet 50 mg PO DAILY RF: 0 trazodone 50 mg tablet 50 mg PO QHS PRN (Reason: Nausea) Qty: 90 RF: 1 lamotrigine 200 mg tablet 200 mg PO DAILY Qty: 90 RF: 1 Primary Care Provider: Shelli Franco Referrals: Shelli Franco MD [Primary Care Provider] - 3-5 Days if not improving Disposition Disposition: Home, Self Care Discharge Date/Time: 06/07/21 22:07
[2021-06-07] MEDS: 0.9% Normal Saline 1,000 ML 1000 ML IV (19:29)
[2021-06-07] MEDS: Ondansetron 4 MG/2 ML Vial IV (19:29)
[2021-06-07] MEDS: Dicyclomine 20 MG/2 ML Vial IM (19:29)
[2021-06-07 19:43] LABS: Absolute Lymphocyte Count 0.39 X10^3/uL (0.83-4.51); Absolute Neutrophil Count 7.1 X10^3/uL (2.0-7.7); Basophil# 0.01 X10^3/uL; Basophil% 0.1 % (0-1); Eosinophil# 0.03 X10^3/uL; Eosinophils% 0.4 % (0-5); Hematocrit 40.6 % (37-47); Hemoglobin 14.1 g/dL (12.0-15.0); Lymphocyte # 0.39 X10^3/ul (0.83-4.51); Lymphocyte % 4.9 % (19-41); Mean Corp Hgb Conc 34.7 g/dL (32-36); Mean Corpuscular Hgb 32.6 pg (27.0-32.0); Mean Corpuscular Volume 93.8 fL (81-99); Mean Platelet Vol. 9.8 fl (6.2-12.0); Monocyte# 0.38 X10^3/uL; Monocyte% 4.8 % (0-10); NRBC Flagged by Analyzer 0 % (0-5); Neutrophil # 7.12 X10^3/uL (2.7-7.7); Neutrophil % 89.4 % (47-70); POSITIVE DIFFERENTIAL YES; Platelet Count 254 K/mm3 (150-450); RBC Distribution Width CV 12.2 % (11.6-14.6); Red Blood Count 4.33 M/mm3 (4.2-5.4)
[2021-06-07 19:48] LABS: Differential Indicated SCAN CRITERIA MET
[2021-06-07 20:00] LABS: Anion Gap 5 (5-15); BUN 14 mg/dL (7-18); BUN/Creat Ratio 17.9 RATIO (10-20); Calcium,Total 8.9 mg/dL (8.5-10.1); Chloride 109 mmol/L (98-107); Creatinine, Serum 0.78 mg/dL (0.55-1.02); EST Glomerular Filtration Rate 83 mL/min (>60); Est Glom Filt Rate - Afr Amer 101 mL/min (>60); Estimated Creatinine Clearance 79.37 ml/min; Glucose 122 mg/dL (74-106); Potassium 4.2 mmol/L (3.5-5.1); Sodium Level 140 mmol/L (136-145)
[2021-06-07 22:06] VITALS: BP 134/88; PULSE 72; RESP 16; O2SAT 96
== END 2021-06-07 22:07 | disposition home or self-care (01) ==
PROVIDERS: Emergency Provider Emergency Medicine; PCP Internal Medicine; Visit Provider Emergency Medicine
DX: R11.2 Nausea with vomiting, unspecified (principal); F31.9 Bipolar disorder, unspecified; E11.40 Type 2 diabetes mellitus with diabetic neuropathy, unspecified; G40.909 Epilepsy, unspecified, not intractable, without status epilepticus; R19.7 Diarrhea, unspecified; I10 Essential (primary) hypertension; M79.7 Fibromyalgia; Z79.899 Other long term (current) drug therapy; F98.8 Other specified behavioral and emotional disorders with onset usually occurring in childhood and adolescence; J45.909 Unspecified asthma, uncomplicated; G89.29 Other chronic pain; F43.10 Post-traumatic stress disorder, unspecified; Z87.19 Personal history of other diseases of the digestive system; E66.9 Obesity, unspecified; Z68.35 Body mass index [BMI] 35.0-35.9, adult
CPT/HCPCS: 80048; 85025; 96361; 96372; 96374; 99285; J7030; J2405

== ENCOUNTER 2021-06-12 09:14 | Outpatient (RCR) | payer MEDICAID, SELFPAY ==
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
[2021-06-12 10:53] VITALS: BP 127/73; PULSE 75
--- NOTE | 2021-06-12 12:15 | PCM.BH.PN ---
Progress Note Progress Note: History of Present Illness/Interim History: [] The patient is a 46-year-old female who is seen for an update after being admitted to the [facility] behavioral health IOP program 2 weeks ago. She started the program on May 27, 2021 but on June 04, 2021 the patient was admitted to [facility] for decreased sleep and suicidal ideation with a plan to overdose. This document will serve as an update and for further information 1 can refer to the initial psychiatric evaluation done 2 weeks ago. The patient has a history of possible schizoaffective disorder and PTSD. The patient states that when she went to the emergency room on June 04, 2021 she went because she had stopped her Zoloft 1 week earlier but did not tell anyone at the IOP program. The patient states that she stopped her Zoloft because the pharmacy labeled the Zoloft wrong in the direction said take as needed for nausea. The patient states that this worried her so she stopped it and because she stopped it she states that she became very depressed anxious and overwhelmed and suicidal. 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 The patient was discharged from the hospital on June 07, 2021 after being restarted on her Zoloft and the dose is being increased to 100 mg p.o. daily. She had this stomach flu shortly after discharge but is fine now. Patient remains stressed and easily overwhelmed and having meltdowns due to stress over her wanting a divorce from her and having a living girlfriend. The patient denies passive thoughts of , suicidal ideation, homicidal ideation, hallucinations or delusions. She denies any recent violence. She denies risky behaviors. She does admit to using alcohol on May 31 and 2021 and says she took about 2 shots on those days. Her trauma and PTSD symptoms remain easily triggered. See initial evaluation for further history which was done in May 2021. Current Psychiatric Medications: [] Zoloft 100 mg p.o. daily (increased 1 week ago); BuSpar 20 mg twice a day; Lamictal 200 mg p.o. nightly; trazodone 50 mg p.o. nightly; hydroxyzine 25 mg 1-3 twice a day as needed for anxiety. Mental Status Examination: [] Patient is a 46-year-old female who appears normal for stated age and is seen wearing a mask due to the pandemic. She is casually dressed and groomed with good hygiene. She is cooperative during the interview but is defensive when discussing the pharmacy mislabeling her medication. Eye contact is fair and the patient looks away at times. Speech is normal rate and rhythm and fluent with no pressure. Mood is depressed and irritable. Affect is full and mildly irritable. Thought process is goal-directed and organized. Thought content: There is no evidence of passive thoughts of , suicidal ideation, homicidal ideation, hallucinations, delusions or symptoms of demetrice. Instead of the patient being angry at her at this point she is somewhat angry at the pharmacy for allegedly mislabeling her Zoloft. Reality testing is intact. Judgment is intact. Insight is limited. Impulsivity is high. The patient's physical exam and vital signs were reviewed and updated in the nurse's notes were reviewed and patient was deemed medically able to participate in the IOP program. Diagnoses: [] 1. Bipolar 2 disorder (most recent episode depressed) 2. Borderline personality disorder 3. PTSD, severe and chronic complex 4. Primary support and financial issues 5. Rule out alcohol use disorder 6. Recent medication noncompliance due to allegedly improper labeling of prescription Plan: [] The patient will start the IOP program again at [facility] as the structure, support, education and group therapy will hopefully prevent worsening of the patient's symptoms which might require rehospitalization. She felt safe during the interview and if it anytime she does not feel safe she will let us know or go to the emergency room. The risks, options, possible complications and side effects of the medications and noncompliance with the medications were again discussed with the patient and she understands and accepts them. No medication changes were made today. Discussion was had with the patient that we are here and available every day and if she has any questions about her Zoloft all she would have to do is ask us and is encouraged to never stop taking her Zoloft. The patient again understands she needs to watch for changing of her moods are symptoms of demetrice since she is on the Zoloft. She will continue to follow-up with her outpatient psychiatric and medical providers and I will see the patient in follow-up as needed. In addition discussed with the patient to try to keep regular hours and set an alarm on her phone to take her medications. The patient states that she does not get up the same time every day and finds it difficult to do so.
--- NOTE | 2021-06-12 12:28 | BH.DR.ITP ---
Initial Treatment Plan Patient Information Visit Information: ADMISSION DATE: EXPECTED LOS: 4-6 weeks Problems/Symptoms Problem #1:: Please refer to the treatment plan done 2 weeks ago during the initial evaluation. See May 29, 2021
--- NOTE | 2021-06-12 13:50 | BH.MDN ---
Multi-Disciplinary Note - Note 45-min Individual Time Started:: 08:40 Date: 06/12/21 Purpose of session/treatment goals addressed:: The purpose of this session was to gather information on client's current stressors leading to recent hospitalization, symptoms, and treatment goals. Another goal was to build rapport and normalize emotions. Additionally, completed intake paperwork and CSSR risk assessment and lethal means screening. Eye Contact:: Good Motor Activity:: Appropriate Appearance:: Neat, Casual Speech:: Appropriate Mood:: Euthymic, Anxious Affect:: Congruent Thoughts:: Linear, Logical, No evidence of hallucinations/delusions noted Staff Interventions:: motivational interviewing, rapport building, strengths perspective, goal setting, other - completed intake paperwork and CSSR risk assessment and lethal means screening. Client Response:: Client responded well to session, open to meeting with therapist. Client reports feeling ?much calmer and more hopeful? following inpatient discharge from [facility] on 06/07/21. Shared that she been struggling with several stressors the prior week and had felt emotionally overwhelmed the several days leading up to hospitalization on 06/03/21. Reported struggling to believe others were willing or wanted to help support her due to several past negative experiences in seeking support from others. Expressed this had resulted in dismissing the potential effectiveness of group therapy and not fulling engaging in the program as a result. Client reports waking on the morning of 06/03 feeling overwhelmed and defeated, shared thoughts of ?I can?t keep living like this?. Explained feeling concerned about her ability to maintain safety as a result and called the [facility] program to discuss wanting to seek a higher level of care to ensure safety and to medically stabilize her. Client reports this was helpful and she now feels more willing and capable of engaging in the group environment. Reports beliefs that prior to hospitalization her medication had been incorrectly labeled which resulted in client taking them as needed rather than daily. Shared this may have been contributing to difficulties with insomnia and may have impeded her mood stability as well. Reports medications are no longer an issue, and she is clear on how and when to administer each of her current prescriptions. Primary stressor remains her ongoing divorce and associated legal issues. 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 Client does have supportive services through [employer] who will be aiding client in advocating for herself as well as transitioning back to the workplace. Additional stressors discussed include; struggling to find healthy supports in the area, wanting to develop a healthier lifestyle, poor social skills, and limited ability to emotionally self-regulation in times of increased stress. Receptive of beginning discussions on relationships between PTSD and emotion regulation, expressing interest in learning more on this topic. Additionally, reports wanting to improve distress tolerance skills, self-care, and develop a coping skills ?cheat sheet? she can use in the moment. Risks/Concerns:: Client denies any current suicidal ideation, plan, or intent. Reports hx of thoughts that things would be easier if she were not alive, last occurring prior to most recent hospitalization. Denies any since. Does have access to large amounts of medications as pt is prescribed these and does not have anyone else to administer them. Receptive of lethal means counseling and reports willingness to bring in any excess medication. Denies access to any other lethal means and reports feeling safe in the home. Completed initial paperwork. Denies any homicidal ideation, plan, or intent. Reports her children and goals for her future as primary protective factors. Completed [place] [facility] Screening with moderate risk. Aware of and willing to reach out to crisis services should she feel unable to maintain safety at any time. Future-oriented. Progress Toward Goals/Plan:: Client reports looking forward to the IOP program now that she has been discharged from inpatient hospitalization. Discussed wanting to learn new skills for reducing mood swings and improve emotion regulation, improving self-care, and better managing stress. Client?s first day of IOP tx, so no significant progress noted. .Client will continue IOP tx to prevent decompensation, improve mood stability, and learn healthy coping skills for better managing ongoing mental health sx. Time Stopped:: 09:23
--- NOTE | 2021-06-12 15:18 | BH.COMM_ITS ---
Communication Note - Communication with Client Communication Note: Met with patient to complete initial paperwork for IOP. Pt discharged from inpatient hospitalization at [facility] on 06/07/21. Denies any significant changes since time of discharge. Completed [place] Suicide Screening and presents as moderate-high risk. Reports continuing to have fleeting suicidal ideations with thoughts of taking pills within the past two weeks, most recently last night on the date of inpatient admission on 06/04/21. Reports at this time she had been incorrectly taking her psychiatric medications as she states they had been ?labeled incorrectly? indicating a prn dosage rather than daily. Pt reports she had not been sleeping well that week and woke up on the morning of the 06/03/21 knowing ?I wasn?t going to be able to keep myself safe?. Denies any suicidal ideations, plan, or intent today and is future oriented. Pt stated her suicidal ideations are primarily passive in nature and that she begins to experience increased suicidality when feeling emotionally overwhelmed or facing unexpected stressors. Denies any history of actual suicide attempts. History of one interrupted attempt last June 2020 when pt was going to overdose on pills, but a friend stopped pt. Pt reports she has always reached out for help in times of crisis and will continue to do so. Shared she will call a support before she acts. Protective factor is her children and goals for her future. Reports no access to weapons. Does indicate access to a large amount of medication, but indicates these are all prescribed. Receptive of lethal means counseling and encouraged to bring any excess medication in to be disposed of. Reports ability to maintain safety today. Case discussed with Dr. Kang with plan to admit to IOP with dx of Bipolar 2 disorder (most recent episode depressed), Borderline personality disorder, PTSD, severe and chronic complex, F 31.81.
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
--- NOTE | 2021-06-14 09:06 | BH.SGPN.GN ---
Behaviors/Verbalizations/Mental Status: []Eye contact is good. Motor activity is appropriate. Appearance is casual. Speech is Appropriate. Mood is depressed and anxious. Affect is congruent. Thoughts are linear and logical. No evidence of psychosis. Reviewed daily check in sheet and no reports of suicidal ideations or intent. Client Response/Progress/Benefit: []Pt receptive of session and engaged throughout. Reports current emotion as ?mixed but hopeful? and discussed adjusting to her new job which has been stressful. Reports however that she is excited to be working again and feels more confident knowing she has several supportive resources in place to advocate on her behalf and ensure her mental health needs are being met in the workplace. Went on to share an additional win as beginning individual outpatient therapy this week as well. Expressed gratitude and relief to be taking steps to begin learning skills for better managing her mental health sx. Indicates stressor as her ongoing divorce, sharing that just thinking about it is overwhelming for her. Pt receptive of and appeared to benefit from supportive feedback provided by group. Will continue in IOP to maintain safety, stabilize mood, and improve functioning. Narrative Note: []
--- NOTE | 2021-06-14 10:15 | BH.SGPN.GN ---
Behaviors/Verbalizations/Mental Status: []Client alert and oriented, casually dressed and groomed. Eye contact good. Motor activity appropriate. Speech within normal limits. Affect congruent, mood euthymic. Thoughts linear, logical, no signs of hallucinations or delusions. Client Response/Progress/Benefit: []Client responded well to session AEB sharing and listening attentively to others. Client participated in activity illustrating how positive and negative perspectives affect how individuals view situations, sharing observations and insights. Group discussed and defined perspective and what impacts it, with client contributing past experiences as an example. Client identified that a negative perspective ?pulls me down?, whereas a positive perspective ?keeps me going and gives me energy?. Appeared to benefit from increased knowledge and self-awareness of perspective. Will continue IOP treatment to increase mood stability and decrease negative self talk to improve daily functioning. Narrative Note: []
--- NOTE | 2021-06-14 11:15 | BH.SGPN.GN ---
Behaviors/Verbalizations/Mental Status: []Client alert and oriented, neatly dressed and groomed. Eye contact good. Motor activity appropriate. Speech within normal limits. Affect congruent, mood euthymic. Thoughts linear, logical, no signs of hallucinations or delusions Client Response/Progress/Benefit: []Pt did well to remain attentive throughout session, AEB providing input throughout discussion. Engaged as group reviewed the importance of taking a strengths-based approach to foster a healthier perspective and better manage mental health symptoms. Completed strengths exploration worksheet and identified personal strengths to include: creativity, artistic ability, and resourcefulness. Pt reported these strengths are currently helping pt practice self-care and problem-solve. Pt stated self-sabotage and lack of motivation keep pt from using strengths and pt helped group identify strategies to increase acknowledgement of strengths. Benefited from identifying personal strengths and strategies for enhancing use of identified strengths. Pt to continue IOP tx to improve emotional regulation skills, improve daily functioning, and improve mood stability. Narrative Note: []
--- NOTE | 2021-06-17 09:01 | BH.SGPN.GN ---
Behaviors/Verbalizations/Mental Status: [] Eye contact is good. Motor activity is appropriate. Appearance is casual. Speech is Appropriate. Mood is dysthymic. Affect is congruent. Thoughts are linear and logical. No evidence of psychosis. Reviewed daily check in sheet and no reports of suicidal ideations or intent. Client Response/Progress/Benefit: [] Pt was an active participant in group discussion. Attentive. Provided appropriate feedback. Pt reported mental health positive as clean apartment for first time in 3 weeks. Pt stated using opposite action is what helped push her to do her chores. Pt able to note benefits of having a clean apartment. Pt reported additional mental health win as using positive self-talk and thinking of consequences as skills to stop her from going to drink alcohol at the bar. Pt stated she had been stood up for a date which prompted feelings of loneliness. Pt receptive to ideas from peers about strateiges to decrease loneliness. Pt agreed she could benefit from getting back into crafting because she used to enjoy doing that in the winter months. Benefited from group support, encouragement, and feedback. Progress noted per pt report. Will continue in IOP to continue use of healthy coping skills, challenge distorted thoughts and prevent decompensation.
--- NOTE | 2021-06-17 11:15 | BH.SGPN.GN ---
Behaviors/Verbalizations/Mental Status: []Client alert and oriented, neatly dressed and groomed. Eye contact good. Motor activity appropriate. Speech within normal limits. Affect congruent, mood euthymic. Thoughts linear, logical, no signs of hallucinations or delusions. Client Response/Progress/Benefit: []pt was an active participant throughout AEB contributing to discussion, providing personal examples, and taking notes. Pt processed emotions felt in the activity and how the group overcame barriers. Pt provided input during discussion on the types of support our supports can provide. Pt reports wanting to work on increasing social supports, noting this will provide pt a social outlet and connection. Pt plans to improve this support by exploring [employer] to find groups in the area. Pt seemed to benefit from identifying the type of support and how this support will aid in promoting overall mental wellness. Progress noted in pt?s active participation in group sessions. Will continue IOP tx to prevent decompensation, gain emotional regulation skills, and improve overall functioning. Narrative Note: []
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
--- NOTE | 2021-06-19 15:42 | BH.MDN_ITS ---
Multi-Disciplinary Note - Note 60-min Individual Time Started:: 09:09 Date: 06/20/21 Purpose of session/treatment goals addressed:: Purpose of session was to address current sx, stressors, and progress in treatment so far. Additionally, began focus on treatment goal #1, specifically discussing emotion regulation and impact of past trauma on distress tolerance and mood stability. Eye Contact:: Good - tearful throughout Motor Activity:: Appropriate Appearance:: Casual Speech:: Appropriate Mood:: Anxious, Depressed Affect:: Full Thoughts:: Linear, Logical, No evidence of hallucinations/delusions noted Staff Interventions:: thought challenging, motivational interviewing, psychoeducation on: - trauma triggers and emotion regulation, strengths perspective, taught coping skills - DBT skill of Delay, Distract, Decide Client Response:: Pt receptive of session and remained engaged throughout. Reports continuing to see improvements in overall mood since discharge from inpatient hospitalization. Attributes this to clarifications regarding her medications, as well as improvements in overall sleep quality. Pt discussed lack of sleep as a major trigger for her emotionally and noted significant difficulties in self-regulating when not getting enough sleep. Worked with pt the review other potential triggers for emotion dysregulation she has noted in the past. Pt identified physical pain, unexpected changes in her routine, new stressors, and feeling rejected or abandoned by others. Reviewed hierarchy of needs and difficulties in managing stressors and emotions when basic needs such as sleep and pain are not being met. Went on to discuss pt?s trauma hx and potential for past trauma to create long-term triggers making regulation difficult. 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 Pt became tearful and noted this triggered feelings of rejection and abandonment, ultimately resulting in pt becoming upset and lashing out verbally towards her job order clerk. Pt able to recognize how trauma triggers have resulted in emotional outbursts in the past and impacts this has had on her relationships with others. Shared ?I don?t have any brakes to stop myself sometimes?. Receptive of learning DBT technique of ?Delay, Distract, Decide? to improve in the moment ability to regulate herself before responding to a potentially t riggering situation. Discussed using deep breathing techniques or playing a game on her phone prior to responding to a text when experiencing the urge to respond with emotion. Reports understanding and willingness to work on implementing these skills, however expressed difficulties in accepting when others are unable or unwilling to accommodate her emotional needs in the moment. Shared difficulties in coping with not resolving the in the moment sense of urgency and would like to work on improving in this area. Risks/Concerns:: Denies any suicidal or homicidal ideations, plan, or intent. Future-oriented. Progress Toward Goals/Plan:: Progress noted in pt ability to successfully maintain safety and sobriety since discharge from hospital on 06/07/21. Pt reports medication compliance and improved sleep which has aided in mood stability. Reports progress with small self-care goals such as taking regular walks, going to outpatient counseling, and doing her hair and make-up more consistently. Continues to report her divorce as the primary stressor, additional stressors include finances, starting a new job, and her daughter?s mental health. Reports struggling with irritability, rumination, crying spells, and daily panic. Will continue IOP treatment to continue to promote mood stability, improve application of distress tolerance skills, and prevent decompensation. Time Stopped:: 10:05
--- NOTE | 2021-06-21 09:00 | BH.SGPN.GN ---
Behaviors/Verbalizations/Mental Status: []Eye contact is fair. Motor activity is appropriate. Appearance is casual. Speech is Appropriate. Mood is euthymic, positive. Affect is congruent. Thoughts are linear and logical. No evidence of psychosis. Reviewed daily check in sheet and no reports of suicidal ideations or intent. Client Response/Progress/Benefit: []Pt responded well to session AEB sharing thoughts and feelings and listening attentively to peers. Pt reported mental health positive as pt's daughter opening up to her father about how she feels about his girlfriend. Pt stated daughter's dad reported he was going to end relationship because he was finding it stressful as well. Pt stated her stress will decrease once her ex ends relationship with his current girlfriend. Client stated she has been struggling with resorting back to alcohol as a way to cope. Therapist encouraged pt to not keep alcohol at the house, but pt stated she was not ready to stop drinking. Pt seemed to understand potential consequences of continuing to rely on alcohol as coping skills. Pt identified she has been trying to walk, do word puzzles and talk with daughter as coping skills. Group provided suggestions and ideas to help pt increase follow through with skills. Progress could be negatively impacted by pt using alcohol a a way to cope. Pt to continue IOP to decrease use of unhealthy coping, challenge negative thinking and prevent decompensation.
--- NOTE | 2021-06-21 10:14 | BH.SGPN.GN ---
Behaviors/Verbalizations/Mental Status: []Client alert and oriented, neatly dressed and groomed. Eye contact good. Motor activity appropriate. Speech within normal limits. Affect congruent, mood agitated. Thoughts linear, logical, no signs of hallucinations or delusions. Client Response/Progress/Benefit: []Pt was an active participant in group discussion and activity. Attentive during psychoeducation. Pt participated in group discussion in which group defined fixed mindset and provided insight on how a fixed mindset could impact mental health. Pt?s fixed mindset thoughts included: I need external validation before I can move forward? and ?I?m always going to struggle with my mental health.? Pt stated fixed thinking results in pt believing no one will want to be with her and pt pushing people away. Benefited from increased awareness on the role of fixed mindset on mental health. Will continue in IOP to prevent decompensation, increase the application of healthy coping skills, and increase distress tolerance skills. Narrative Note: []
--- NOTE | 2021-06-21 11:14 | BH.SGPN.GN ---
Behaviors/Verbalizations/Mental Status: []Client alert and oriented, casually dressed and groomed. Eye contact good. Motor activity appropriate. Speech within normal limits. Affect congruent. mood euthymic. Thoughts linear, logical, no signs of hallucinations or delusions. Client Response/Progress/Benefit: []Client engaged during activity and discussion AEB providing input and ideas to discussion, as well as taking notes throughout. Client did well to engage as group worked on identifying characteristics and benefits of adopting a growth mindset. Worked with fellow participants in reframing the example fixed thoughts into growth mindset thoughts and providing ideas when encouraged throughout. Client worked in small group to apply skills learned to reframe own personal fixed thoughts. Reframed personal fixed thought of ?I need external validation and reassurance to be okay? with growth mindset thought of ?I have the ability to learn to reassure and validate myself when I need it?. Noted that this would aid in improving self-confidence and reduce anxiety when not receiving external validation. Benefitted from discussing benefits of growth mindset and brainstorming strategies for prompting growth-mindset. Will continue IOP tx to continue to promote use of distress tolerance skills, improve mood stability, as well as continue to improve healthy coping repertoire. Narrative Note: []
--- NOTE | 2021-06-24 09:00 | BH.SGPN.GN ---
Behaviors/Verbalizations/Mental Status: []Pt alert and oriented, casually dressed and groomed. Eye contact good, motor activity appropriate, speech within normal limits. Affect, congruent. Mood, euthymic. Thoughts linear, logical, no signs of hallucinations or delusions. Reviewed pt's daily symptom tracker, no SI indicated. client Response/Progress/Benefit: []Pt responded well to session, providing supportive statements and listening to peers. Pt reports feeling proud this morning as pt has been working on her homework from [facility], going for walks, and got to clean her house over the weekend. Pt stated she is also feeling happy because pt's daughter talked to her father about her mental health. Pt shared this was a big step for her daughter and it also means that pt's is ending the relationship he has with his current girlfriend. Pt has ongoing relationship stress and is currently from her . Pt also reported she got stood up for a date last night which was upsetting, but pt feels she is coping well. Appeared to benefit from reflecting on her use of coping skills. Will continue IOP tx to improve emotional regulation skills, increase mood stability, and reduce negative thinking patterns. Narrative Note: []
--- NOTE | 2021-06-24 10:10 | BH.SGPN.GN ---
Behaviors/Verbalizations/Mental Status: [] Eye contact is good. Motor activity is appropriate. Appearance is casual. Speech is Appropriate. Mood is euthymic. Affect is full. Thoughts are linear and logical. No evidence of psychosis. Client Response/Progress/Benefit: [] Pt was an active participant in group discussion and activity. Attentive during psychoeducation on social stigma vs self-stigma. Pt was actively involved in interactive discussion on the question of What impacts how we define and view ourselves? Pt along with peers were able to identify several aspects that impact how we view ourselves which include; society, past experiences, upbringing, guilt over past actions, shame, what we tell ourselves, actions, and our roles (i.e. mother, father, unemployed, crazy). Pt also participated in identifying examples of social stigma for mental health illness which included too sensitive, looking for attention, overly emotional, psycho, crazy, just an excuse, not working hard enough, lazy, mental health is not real, just a pessimist, and mental health can just be turned off. Benefited from increased awareness of how mental health stigma can impact individuals and treatment. Plan is to continue in IOP to maintain safety, prevent decompensation, and stabilize mood. Narrative Note: []
--- NOTE | 2021-06-24 11:10 | BH.SGPN.GN ---
Behaviors/Verbalizations/Mental Status: []Client alert and oriented, casually dressed and groomed. Eye contact good. Motor activity appropriate. Speech within normal limits. Affect congruent, mood euthymic. Thoughts linear, logical, no signs of hallucinations or delusions. Client Response/Progress/Benefit: []Client engaged participant AEB client participating in the activity, providing some input during small group discussion, and listening attentively to others. Client appeared to connect with discussion about what stigma has kept her from doing. Group brainstormed strategies to combat social and perceived stigma. Client shared one thing she can personally do to combat stigma is to ask self if statements made by others are fact or opinion. Stated she also wants to share her story to help bring awareness of the struggles she's had with mental health. Appeared to benefit from increasing awareness of strategies to combat stigma. Will continue IOP tx to continue use of healthy coping, challenge distorted thoughts and prevent decompensation.
--- NOTE | 2021-06-26 08:38 | BH.MDN_ITS ---
Multi-Disciplinary Note - Note 45-min Individual Time Started:: 09:14 Date: 06/26/21 Purpose of session/treatment goals addressed:: Purpose of session was to address current sx, stressors, and progress in treatment so far. Additionally, discussed strategies for improving consistency of skill application. Eye Contact:: Good - tearful when discussing current stress load Motor Activity:: Appropriate Appearance:: Casual Speech:: Appropriate Mood:: Anxious, Depressed Affect:: Congruent Thoughts:: Linear, Logical, No evidence of hallucinations/delusions noted Client Response:: Pt actively engaged throughout session and openly discussed current stressors and areas of progress. Reports ongoing issues with sleep and the impact this has had on her overall emotion regulation. Notes struggling to sleep the past few days as she has been dealing with ruminating thoughts related to her daughter?s mental health. Reports worrying about her daughter as she recently informed pt she has been struggling with depression and passive thoughts of . Pt receptive of discussion regarding ways she can support her daughter while considering her own mental health needs and potential triggers. Pt went on to indicate difficulties with regulating her emotions the previous morning because of limited sleep, explaining that she ?emotionally dumped on my cable driller?. Described that he had been nice and supportive of pt emotional needs which was helpful, but that she understands these are unhealthy boundaries. Pt and therapist discussed using mindfulness skills to aid in reducing stress at night, as well as the importance of consistent self-care in managing emotions. Pt reports she has made some progress with self-care over the past week as she has made consistent efforts to go for walks. Reports however struggling with her other self-care goals of improving consistent medication management and engaging in artistic activities. Open to working with therapist to identify barriers to medication management which primarily included forgetting to take them at scheduled times. Receptive of discussion on habit stacking and pairing her medication routine with an activity she already completes in the morning, such as brushing teeth or eating breakfast. Reports plans to begin keeping medications next to her toothbrush. Shared additional concern of wanting to reduce validation seeking from others and improve her own positive self-talk and self-assurance. Receptive of reviewing role of affirmations and reflecting on daily accomplishments in beginning to improve self-confidence. Pt reports plans to incorporate art into a daily positives and personal accomplishments journal. Risks/Concerns:: Denies any suicidal or homicidal ideations, plan, or intent. Future-oriented. Progress Toward Goals/Plan:: Progress noted in pt ability to continue to maintain successfully safety since discharge from hospital on 06/07/21. Pt reports improved application of calming and self-care skills, though struggles with consistency in these areas and would like to continue to focus on this. Reports increased insight into her own mental health, warning signs, and triggers, and is working to improve distress tolerance and emotion regulation skill application in times of dysregulation. Reports some recent difficulties with rumination and medication forgetfulness. Reports struggling with ongoing irritability, rumination, crying spells, and panic ? though no longer on a daily basis. Will continue IOP treatment to continue to promote mood stability, improve application of distress tolerance skills, and prevent decompensation. Time Stopped:: 09:51
--- NOTE | 2021-06-26 11:10 | BH.SGPN.GN ---
Behaviors/Verbalizations/Mental Status: []Client alert and oriented, neatly dressed and groomed. Eye contact good. Motor activity appropriate. Speech within normal limits. Affect constricted, mood euthymic. Thoughts linear, logical, no signs of hallucinations or delusions. Client Response/Progress/Benefit: []Client engaged participant AEB client taking notes during discussion. Attentive throughout group discussion on the various areas of self-care, benefits, and types of self-care activities for each area. Client completed worksheet which identified current self-care practices and what self-care activities client wants to start using. Client selected social self-care as the area of self-care client would like to improve. Client plans to do this by going to new social events, reaching out to supports, and following through with plans. Client reports she is doing well with physical self-care. Appeared to benefit from completing the self-care evaluation and gaining insights into current self-care practices, as well as identifying areas in which she would like to improve upon. Will continue IOP tx to improve emotional regulation skills, increase healthy relationships, and improve daily functioning. Narrative Note: []
--- NOTE | 2021-06-28 09:05 | BH.SGPN.GN ---
Behaviors/Verbalizations/Mental Status: [] Eye contact is good. Motor activity is appropriate. Appearance is casual. Speech is normal. Mood is euthymic. Affect is full. Thoughts are linear and logical. No evidence of psychosis. Reviewed daily check in sheet and no reports of suicidal ideations or intent. Client Response/Progress/Benefit: [] Pt was an active participant in group discussion. Attentive. Provided appropriate feedback. Emotion for today is empowered. No significant issues noted on daily symptom tracker. States I had a big win yesterday. Shared that she was able to manage a significant stressor in the AM (ride being late). Able to utilize anger management skills as well as some thought reframing. She described other stressors throughout the day that in the past would have led to significant anger and emotional dysregulation. Increased confidence in her ability to manage stress by not allowing it to ruin her day and lash out at others. Progress noted per pt report. Benefited from group support, encouragement, and feedback. Will continue in IOP to prevent decompensation, increase health coping, and stabilize mood. Narrative Note: []
--- NOTE | 2021-06-28 10:15 | BH.SGPN.GN ---
Behaviors/Verbalizations/Mental Status: []Client alert and oriented, neatly dressed and groomed. Eye contact good. Motor activity appropriate. Speech within normal limits. Affect congruent, mood euthymic. Thoughts linear, logical, no signs of hallucinations or delusions. Client Response/Progress/Benefit: []Pt was an active participant in group discussion and activity. Attentive during psychoeducation on coping skills and gave examples of unhealthy coping skills shut as isolating, drinking, and lashing out. Discussed how throughout her life ?I haven?t carried my load well, but I?m learning.? Benefited from increased understanding of unhealthy coping skills and the need for developing healthy interna and external coping skills. Pt will continue in IOP to prevent decompensation, increase distress tolerance skills, and improve impulse control. Narrative Note: []
--- NOTE | 2021-06-28 11:15 | BH.SGPN.GN ---
Behaviors/Verbalizations/Mental Status: []Client alert and oriented, casually dressed and groomed. Eye contact good. Motor activity appropriate. Speech within normal limits. Affect congruent, mood euthymic. Thoughts linear, logical, no signs of hallucinations or delusions. Client Response/Progress/Benefit: [] Client responded well to session, taking notes and providing input and examples throughout. Group discussed the different categories of coping skills which included distraction, emotional release, grounding, self-love, and thought challenging. Client created a coping skill menu identifying various skills she could try in each category. Client?s coping skill menu included: hands on activities, 5-senses, check-in with self throughout the day. Appeared to benefit from increasing repertoire of healthy coping skills. Will continue tx to further promote mood stability, improve distress tolerance skill application, and prevent decompensation. Narrative Note: []
--- NOTE | 2021-07-01 09:00 | BH.SGPN.GN ---
Behaviors/Verbalizations/Mental Status: [] Eye contact is good. Motor activity is appropriate. Appearance is casual. Speech is Appropriate. Mood is depressed. Affect is constricted. Thoughts are linear and logical. No evidence of psychosis. Reviewed daily check in sheet and no reports of suicidal ideations or intent. Client Response/Progress/Benefit: [] Pt was an active participant in group discussion. Attentive. Provided appropriate feedback. Pt stated she went to a friends house to help the person do some cleaning. Pt reported what was supposed to be positive became a stressor when the person started to drink alcohol heavily which was triggering. Pt reported she managed the stressor by choosing to leave the situation. Pt stated additional mental health positive as cleaning her house despite wanting to avoid the chores. Pt reported able to use opposite action and breathing skills. Benefited from group support, feedback, and encouragement. Will continue in IOP to continue use of healthy coping skills, focus on what's in her control and prevent decompensation.
--- NOTE | 2021-07-01 10:05 | BH.SGPN.GN ---
Behaviors/Verbalizations/Mental Status: []Client alert and oriented, casually dressed and groomed. Eye contact good. Motor activity appropriate. Speech within normal limits. Affect congruent, mood euthymic. Thoughts linear, logical, no signs of hallucinations or delusions. Client Response/Progress/Benefit: []Client responded well to session AEB sharing and listening attentively to others. Client participated in experiential activity illustrating resilience. Client participated in group discussion defining resilience, stating ?resilience is necessary for personal safety?. Group discussed where resilience comes from, with client providing resilience is learned from parents and social interactions with others. Clinician provided psychoeducation on the road to resilience, and introduced how making connections with others can help build resilience. Client discussed that making connections allows for feedback and support from others. Client appeared to benefit from increased knowledge of resilience. Will continue IOP treatment to continue increasing emotional regulation skills and mood stability to improve daily functioning. Narrative Note: []
--- NOTE | 2021-07-01 11:15 | BH.SGPN.GN ---
Behaviors/Verbalizations/Mental Status: []Client alert and oriented, casually dressed and groomed. Eye contact good. Motor activity appropriate. Speech within normal limits. Affect congruent, mood euthymic. Thoughts linear, logical, no signs of hallucinations or delusions Client Response/Progress/Benefit: []Client responded well to session AEB listening and contributing to group discussion, taking notes, and providing suggestions throughout. Client participated small group discussion of how each resiliency component can help increase personal resiliency. Worked cooperatively with group to identify strategies to enhance each of the components discussed. Client identified doing well with the resilience component of ?make connections? and ?move towards your goals?. Went on to reflect wanting to improve in the personal resilience component of ?nurture a positive view of self?. Client stated she wants to work on this by more actively following through with saying daily positive affirmations. Client seemed to benefit from discussing strategies for improving personal resilience. Will continue IOP tx to prevent decompensation, continue to promote consistent application of healthy coping skills, and continue to improve mood stability. Narrative Note: []
--- NOTE | 2021-07-03 08:33 | BH.MDN ---
Multi-Disciplinary Note - Note 60-min Individual Time Started:: 11:02 Date: 07/03/21 Purpose of session/treatment goals addressed:: Reviewed current symptoms and progress in IOP. Addressed ongoing stressors which are impacting mental health Eye Contact:: Good - Tearful in discussing discharge planning Motor Activity:: Appropriate Appearance:: Casual Speech:: Appropriate Mood:: Anxious, Dysthymic Affect:: Full Thoughts:: Linear, Logical Staff Interventions:: thought challenging, motivational interviewing, CBT techniques - behavior chain analysis, discharge planning, strengths perspective, reviewed DSM-5, other - began decisional balance exercise regarding her relationship Client Response:: Pt receptive of session, engaged throughout. Reports that despite several recent and upcoming stressors, she feels her mood has remained mostly stable. Discussed using several coping skills to manage in to moment stress and unexpected triggers which is progress. Skills include taking a break and stepping away from the stressor, going for regular walks to clear her head, daily affirmations and positive self-talk, as well as making efforts to complete daily personal hygiene and self-care routine. Pt discussed doing well to manage the unexpected stressor of losing her job yesterday without escalating to point of panic or lashing out in anger. Noted reminding herself that the situation is out of her control, going for a walk, and trying to reframe to see some of the positives such as the opportunity to focus on her mental health and find alternative employment after she completes IOP tx. Pt did however go on to disclose ?I have not been using all the best or healthiest coping skills however?, sharing that she had used marijuana last night when feeling anxious. Went on to vaguely discuss using another unhealthy skill she know ?is really bad and I shouldn?t be doing?. Explained that she has been seeing her soon-to-be ex- throughout the past several months, despite their pending divorce and current restraining order. Reports that ?part of me? knows this is unhealthy and re-exposing her to emotional trauma and the toxic environment she had previously left. However, went on to struggle with making what she believes may long-term be the healthier decision and establishing very clear and firm boundaries with her . Worked with therapist to review the factors influencing her decision-making process and potential costs/benefits of the various decisions she is considering. Expressed that loneliness, guilt regarding her ?s physical/mental health restrictions, limited financial resources, and a desire to keep the family unit in tact as driving forces for wanting to maintain a romantic relationship. Identified however that this would potentially risk her own mental health and mood stability, confidence, limit her willingness to develop financial and personal independence, as well as continue to expose herself and her family to a toxic environment. Reports wanting to wait to make a decision on the relationship until after her upcoming court date next week as she feels she is not in an emotionally stable enough place to make such a big decision given her current stress levels. Worked with therapist to identify a stress management and self-care plan for the days leading up to and following court. Risks/Concerns:: Denies any suicidal or homicidal ideations, plan, or intent. Future-oriented. Progress Toward Goals/Plan:: According to 4 week DSM cross-cutting scales pt has had a 21% reduction in overall symptoms, despite several ongoing and recent unexpected stressors. Her depression scores have decreased by 33%, irritability score reduced by 33%, thoughts of harming self by 67%, and her anxiety scores have decreased by 13%. Despite recent regression in regard to substance use and interpersonal relationships, overall she is benefiting from the program. Increased insight and awareness per pt. Primary challenge and stressor is relationship with spouse however she had reported improvements in her ability to identify ?red flags? and costs of her poor boundaries, despite struggling to make healthier decisions related to these insights. She arranged to meet with w/o children this afternoon and is motivated to work through recent challenges. Continues to report utilizing in the moment distress tolerance and self-care skills which we reviewed. Encouraged to utilize self-care and be aware of mood. Plan is to continue in IOP to maintain safety, increase healthy coping, and prevent decompensation. Time Stopped:: 12:05
--- NOTE | 2021-07-03 09:00 | BH.SGPN.GN ---
Behaviors/Verbalizations/Mental Status: []Eye contact is good. Motor activity is appropriate. Appearance is casual. Speech is appropriate. Mood is perturbed. Affect is congruent. Thoughts are linear and logical. No evidence of psychosis. Reviewed daily symptom tracker sheet with no reports of suicidal ideations, plan, or intent. Client Response/Progress/Benefit: []Client was engaged throughout session, sharing and listening attentively to others. Client reported her emotion as ?perturbed?. Client reported being fired from her job yesterday, but was able to regulate her emotions, something that she could not have done in the past. Client reported feeling torn about leaving or staying with her ,but appeared to benefit from supportive group environment and feedback. Progress noted AEB client?s report of increased use of emotion regulation skills. Will continue IOP to continue increasing mood stability and healthy decision making to improve daily functioning. Narrative Note: []
--- NOTE | 2021-07-03 10:10 | BH.SGPN.GN ---
Behaviors/Verbalizations/Mental Status: []Client alert and oriented, neatly dressed and groomed. Eye contact good. Motor activity appropriate. Speech within normal limits. Affect congruent, mood content. Thoughts linear, logical, no signs of hallucinations or delusions. Client Response/Progress/Benefit: []Client engaged during session AEB client contributing thoughts throughout discussion and completing worksheet. Connected with discussion on crisis and how coping with external crises by using unhealthy coping skills could result in a personal crisis. Group reflected on the importance of having awareness of personal warning signs to prevent reaching crisis point. Group identified potential warning signs for crisis and client completed the personal warning signs worksheet. Client identified personal crisis warning signs to include: comfort eating, uncontrollable worries, and lashing out. Client benefited by increasing awareness of what leads to crisis and personal warning signs. Client will continue IOP tx to increase emotional regulation skills, reduce impulsivity, and improve daily functioning. Narrative Note: []
--- NOTE | 2021-07-04 08:46 | BH.TPR ---
Treatment Plan Review Date of Admission:: 06/12/21 Date of Treatment Plan Review:: 07/03/21 Admitting Diagnoses:: 1. Bipolar 2 disorder (most recent episode depressed). 2. Borderline personality disorder. 3. PTSD, severe and chronic complex Current Diagnoses:: 1. Bipolar 2 disorder (most recent episode depressed). 2. Borderline personality disorder. 3. PTSD, severe and chronic complex Patient's Response to Treatment:: Pt was initially hesitant about group counseling when first admitted however after readmitting following hospitalization, has responded well and remained actively engaged throughout. Struggles at times with consistently sharing the floor, however often provides supportive feedback, encouragement, and examples to group. Reports that she is utilizing skills learned in IOP outside group as well, though does admit to struggling to maintain healthy boundaries. Provides appropriate feedback. Status of Current Problems and Symptoms: According to 4 week DSM cross-cutting scales pt has had a 21% reduction in overall symptoms, despite several ongoing and recent unexpected stressors. Her depression scores have decreased by 33%, irritability score reduced by 33%, thoughts of harming self by 67%, and her anxiety scores have decreased by 13%. Despite recent regression in regard to substance use via reported marijuana use last night and ongoing reports of daily alcohol use, as well as reported increased stress regarding interpersonal relationships, overall she is benefiting from the program. Increased insight and awareness per pt. Primary challenge and stressor is relationship with spouse however she had reported improvements in her ability to identify ?red flags? and costs of her poor boundaries, despite struggling to make healthier decisions related to these insights. Continues to report utilizing in the moment distress tolerance and self-care skills which we reviewed. Reports overall improved mood and positive perspective. She also reports compliance with her medications and noted improved sleep since last week. Problem #1 Problem Name:: Depression/Anger/Erratic Mood Status of Goals:: Ob1- per pt reports she feels her mood is more stable. She additionally reports improved awareness and utilization of self-care skills. Reports more consistently engaging in activities she enjoys such as going for walks and spending time with her daughter. Obj2- Per pt report she feels that she has decreased her irritability and anger outbursts, however continues to struggle regarding consistency in this area. Struggles with healthy communication and boundaries with spouse. Continues to struggle with managing emotions in times she has felt disrespected or treated unfairly. Team Recommendations:: Continue to work on emotion regulation as she continues to be reactive. Encourage dual diagnosis treatment. Continue with current treatment plan, specifically focusing on healthy boundaries and decision making. Problem #2 Problem Name:: Anxiety Status of Goals:: ob1- She is able to identify calming skills learned in group however struggles with implementing these skills consistently when in overwhelming situations. Can identify triggers as well, but continues to struggle with proactive management when identifying potential triggers. Team Recommendations:: Continue with current tx plan, focusing on avoiding behaviors that may re-enforce anxiety sx.
== END 2021-07-04 23:59 | disposition home or self-care (01) ==
LOC: BHIOP 09:14
PROVIDERS: PCP Internal Medicine; Referring Provider Psychiatry & Neurology Psychiatry; Visit Provider Psychiatry & Neurology Psychiatry
DX: F31.81 Bipolar II disorder (principal); F60.3 Borderline personality disorder; F43.10 Post-traumatic stress disorder, unspecified; Z79.899 Other long term (current) drug therapy; Z91.14 Patient's other noncompliance with medication regimen
CPT/HCPCS: 90792; H2012; H2020; S9480; 90834; 90837

== ENCOUNTER 2021-07-05 08:16 | Outpatient (RCR) | payer MEDICAID, SELFPAY ==
[2021-07-05 00:48] VITALS: BP 127/73; PULSE 75
--- NOTE | 2021-07-05 09:05 | BH.SGPN.GN ---
Behaviors/Verbalizations/Mental Status: []Pt alert and oriented, casually dressed and groomed. Eye contact good, motor activity appropriate, speech within normal limits. Affect, congruent. Mood, agitated and anxious. Thoughts linear, logical, no signs of hallucinations or delusions. Reviewed pt's daily symptom tracker, no SI indicated. Client Response/Progress/Benefit: []Pt receptive of session, attentive and remaining an actively engaged participant throughout, at times struggling with interrupting others. Remains supportive and often provides helpful feedback. Reports current emotion as ?panicky?, sharing that she has been struggling with anxiety about her upcoming court date next . Discussed fear of the unknown and struggling with ?what if? thoughts. Receptive of discussion on focusing on what?s in her control and using self-care to reduce rumination. Shared she plans to spend time walking and doing some art this weekend to help with keeping her mind off of the upcoming trial. Shared a mental health win as using her skills to help cope with and alter her perspective regarding recent job loss. Expressed trying to reframe it as an opportunity to devote more time to her mental health. Pt appeared to benefit from supportive group environment and reflecting upon the skills she can use to continue to support healthy coping. Will continue with IOP tx to improve consistent healthy coping and reduce self-sabotaging behaviors, continue to stabilize mood, and prevent decompensation. Narrative Note: []
--- NOTE | 2021-07-05 10:10 | BH.SGPN.GN ---
Behaviors/Verbalizations/Mental Status: [] Eye contact is good. Motor activity is appropriate. Appearance is casual. Speech is Appropriate. Mood is anxious. Affect is congruent. Thoughts are linear and logical. No evidence of psychosis. Client Response/Progress/Benefit: [] Pt was an active participant in group discussions. Attentive during psycho-education on 4 types of conflict styles (Competing, Collaborating, Avoiding, and Accommodating). Worked with group to define conflict and identify how conflict is helpful. With peers identified barriers to addressing or managing conflict which included: fear of upsetting others, embarrassing self, abandonment, past negative experiences with conflict, and shutting down. Pt believes her conflict style is collaborating. Pt stated since trying to work conflict out with others she has noticed this style has helped decrease anxiety, gives her feeling of more control and improved ability to let go. Benefited from group due to increase insight and awareness of conflict, conflict styles, and obstacles to managing conflict. Pt to continue IOP to continue use of healthy coping, improve confidence and prevent decompensation.
--- NOTE | 2021-07-05 11:10 | BH.SGPN.GN ---
Behaviors/Verbalizations/Mental Status: []Client alert and oriented, neatly dressed and groomed. Eye contact good. Motor activity appropriate. Speech within normal limits. Affect congruent, mood euthymic. Thoughts linear, logical, no signs of hallucinations or delusions. Client Response/Progress/Benefit: []Client engaged in session AEB contributing to discussion and engaging in activity. Client did well to review current conflict style and its impact on mental health. Attentive and taking notes during discussion on strategies for more effectively managing conflict in personal life. Client participated in activity and did well to be assertive and collaborating. Client wants to work on avoiding degrading language when faced with conflict to help client regulate emotions and collaborate with others. Appeared to benefit from gaining strategies to help client better manage conflict. Will continue IOP tx to increase distress tolerance skills, reduce the use of unhealthy coping skills, and improve mood stability. Narrative Note: []
--- NOTE | 2021-07-10 09:00 | BH.SGPN.GN ---
Behaviors/Verbalizations/Mental Status: []Eye contact is good. Motor activity is appropriate. Appearance is casual. Speech is appropriate. Mood is down. Affect is congruent. Thoughts are linear and logical. No evidence of psychosis. Reviewed daily symptom tracker sheet with no reports of suicidal ideations, plan, or intent. Client Response/Progress/Benefit: []Client was engaged throughout session AEB sharing and listening attentively to others. Client reported her emotion as ?sad, anxious, and angry?. Client discussed legal trouble and feeling anxious about daughter testifying in court tomorrow. Client appeared to benefit from supportive group environment and feedback normalizing her feelings. Client reported using opposite action to apply for four jobs, and feeling as though she is not staying upset for as long as she has in the past. Client also identified that sticking to a routine is helping her to stay more positive than she would have prior to beginning the IOP program. Progress noted AEB client reporting increased use of opposite action. Will continue IOP treatment to continue increasing mood stability and application of self-care to improve daily functioning. Narrative Note: []
--- NOTE | 2021-07-10 10:15 | BH.SGPN.GN ---
Behaviors/Verbalizations/Mental Status: []Client alert and oriented, casually dressed and groomed. Eye contact fair. Motor activity appropriate. Speech within normal limits. Affect constricted, mood anxious. Thoughts linear, logical, no signs of hallucinations or delusions. Client Response/Progress/Benefit: []Client responded well to treatment AEB sharing and listening attentively to others. Client participated in group discussion defining taking action. Group identified barriers to taking action. Client attentive to psychoeducation and discussion about what symptoms and behaviors take control over functioning. Client identified:intrusive thoughts, lashing out, not giving self credit, not using healthy skills, negative self-talk, reassurance seeking, and past trauma as what takes control over their functioning too frequently. Client reported she would have more peace, increased confidence and feel more free if she had more control over her life. Client reported attending IOP, self-care, and talking to supports as strategies that are currently helping her feel better. Appeared to benefit from increased self-awareness and knowledge regarding examples and barriers to taking action. Will continue IOP treatment to decrease impulsivity, increase healthy coping skills and prevent decompensation.
--- NOTE | 2021-07-10 11:13 | BH.SGPN.GN ---
Behaviors/Verbalizations/Mental Status: []Client alert and oriented, neatly dressed and groomed. Eye contact good. Motor activity appropriate. Speech within normal limits. Affect congruent, mood anxious. Thoughts linear, logical, no signs of hallucinations or delusions. Client Response/Progress/Benefit: []Client responded well to session, taking notes and participating in worksheet discussion. Client identified they want to take action on reducing lashing out by practicing more calming skills and taking a break when things get heated. Identified deep breathing, self-care, and walking as strategies that can help client follow through with the goal. Appeared to benefit from identifying a small goal to benefit mental health. Client to continue IOP to gain emotional regulation skills, reduce negative thinking, and increase impulse control. Narrative Note: []
--- NOTE | 2021-07-10 12:08 | PCM.BH.PN ---
Progress Note Progress Note: History of Present Illness/Interim History: Patient is a 46-year-old female who is seen in follow-up at the [facility] behavioral health IOP program. I last saw the patient 1 month ago. The patient has been participating in the program and has made gains and had been doing well until recently when she lost her job last week. In addition, the patient states I had a bad weekend because I made a bad choice. The patient began to talk with her despite having a protection order against him and actually went and met with him. He had some sort of disagreement and her 's girlfriend called the police on the patient but the patient was not arrested. Patient states that she is feeling better today after being at the IOP program and getting some perspective on the weekend. today because she has a court date tomorrow She is nervous. She is been tolerating the medication well and feels like her mood and anxiety than a month ago. are much less severe She had some passive thoughts of over the weekend during the stressful time with her but these have currently resolved. She had no suicidal ideation over the weekend or currently. She has had some decreased libido which may be secondary to the Zoloft. The patient admits to using alcohol on when she drank 3 shots of alcohol July 09 last night. current psych meds: Zoloft 100 mg p.o. daily (timesx5 weeks now); BuSpar 20 mg twice a day; Lamictal 200 mg p.o. nightly; trazodone as needed; hydroxyzine 25 mg as needed for anxiety. Mental status exam: Patient is a 46-year-old female who appears normal for stated age and is casually dressed and groomed with good hygiene. Eye contact is good and speech is normal rate and rhythm and fluent with no pressure. Mood is mildly depressed and nervous today. Affect is full and normal. Thought process is goal-directed and organized. Thought content: There is no evidence currently of passive thoughts of , suicidal ideation, homicidal ideation, hallucinations, delusions. She had passive thoughts of a few days ago. Reality testing is intact. Judgment is intact. Insight is limited. Impulsivity is high. Diagnosis: 1. Bipolar 2 disorder (most recent episode depressed) 2. Borderline personality disorder 3. PTSD 5. Primary support and financial issues 6. Probable alcohol use disorder plan: The patient will continue the IOP program as the structure, education, support and group therapy will hopefully prevent worsening of the patient's symptoms which could require hospitalization. She felt safe during the interview and if it anytime she does not feel safe she will let us know or go to the emergency room. The risks, options, possible complications and side effects of the medications were again discussed with the patient and she understands and accepts them. She has been compliant with her medication change. The patient agrees to increase her Zoloft to 150 mg p.o. daily and a prescription is sent in for this. She has no symptoms of demetrice. She will continue to follow-up with her outpatient psychiatric and medical providers.
--- NOTE | 2021-07-12 09:52 | BH.COMM ---
Communication Note - Communication with Client Communication Note: Pt scheduled for individual session and group treatment on this date; however, missed hospital provided transportation. Called to inform staff she would be arriving late as she was waiting on a cab. Client unable to meet individually as a result but was able to attend 2nd and 3rd group sessions. Scheduled for group on Thursday and will meet with individual therapist at that time as well.
--- NOTE | 2021-07-12 10:15 | BH.SGPN.GN ---
Behaviors/Verbalizations/Mental Status: []Eye contact is good. Motor activity is appropriate. Appearance is casual and grooming tended to. Speech is Appropriate. Mood is anxious and euthymic. Affect is congruent. Thoughts are linear and logical. No evidence of psychosis Client Response/Progress/Benefit: []Pt receptive of session, actively engaged throughout AEB taking notes and providing input and examples to discussion. Appeared to connect with group topic of cognitive distortions and the impact of thought patterns on mental health, coping behaviors, and relationships. Reflected that her own distorted thoughts have led to creating additional stress and increased relationship tension. Discussed with group the influence of media, environment, past experiences and current mood on vulnerability to distorted thought patterns. Shared how her own upbringing has resulted in unrealistically high expectations of herself and others. Appeared to benefit from gaining insight on distorted thinking patterns and influence of distortions on maintaining unhealthy maintenance cycles. Progress remains variable as pt external stressors continue to impact mood stability. Recommended continued IOP treatment to improve mood stability, continue to promote healthy change behaviors, and prevent decompensation. Narrative Note: []
--- NOTE | 2021-07-12 10:20 | BH.SGPN.GN ---
Behaviors/Verbalizations/Mental Status: []Client alert and oriented, casually dressed and groomed. Eye contact good. Motor activity appropriate. Speech within normal limits. Affect congruent, mood euthymic. Thoughts linear, logical, no signs of hallucinations or delusions. Client Response/Progress/Benefit: []Client responded well to session AEB sharing and listening attentively to others. Client participated in group discussion defining cognitive distortions. Clinician provided psychoeducation on ten types of cognitive distortions, their costs, and what to do to manage them. During the clinician's presentation client provided insight and personal examples of all or nothing thinking, labeling, and overgeneralization. Client identified cognitive distortions she experiences most often, including personalization, overgeneralization, and all or nothing thinking. Appeared to benefit from increased knowledge of cognitive distortions and self-awareness. Will continue IOP treatment to increase mood stability and application of healthy coping skills to increase daily functioning. Narrative Note: []
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
--- NOTE | 2021-07-16 10:11 | BH.SGPN.GN ---
Behaviors/Verbalizations/Mental Status: []Client alert and oriented, casually dressed and groomed. Eye contact good. Motor activity appropriate. Speech within normal limits. Affect congruent, mood euthymic. Thoughts linear, logical, no signs of hallucinations or delusions. Client Response/Progress/Benefit: []Pt engaged throughout AEB taking notes, listening attentively, and providing input throughout. Attentive during psychoeducation and discussed the importance of goal-setting with the group. Pt indicated that goals ?help give us a sense of purpose and something to work towards?. Group identified potential benefits of having goals to include: they motivate, increase self-confidence, provide a sense of accomplishment, help you begin to create healthier habits, and can improve relationships with self and others. Group also worked together to identify barriers to goal-setting which included; fear of failure, limited resources, distortions, negative self-talk, doubt, and lack of support from others. Pt identified personal barriers to include fear of change and lack of healthy supports. Benefited from increased awareness of benefits and barriers to goal-setting. Pt will continue in IOP to prevent decompensation, increase mood stability, and further stabilize mood, as well as further improve daily functioning. Narrative Note: []
--- NOTE | 2021-07-16 11:12 | BH.SGPN.GN ---
Behaviors/Verbalizations/Mental Status: []Client alert and oriented, casually dressed and groomed. Eye contact good. Motor activity appropriate. Speech within normal limits. Affect congruent, mood euthymic. Thoughts linear, logical, no signs of hallucinations or delusions. Client Response/Progress/Benefit: []Pt was an active participant in group discussions and activities. Engaged in activity. Pt identified a SMART goal for the next week is to: Use healthy emotion regulation skills at least four times when identifying triggers over the next week. Pt reported this would benefit her by helping lower stress levels and increase self-esteem. Identified poor sleep, her environment, and low glucose levels as potential barriers to completing this goal. Pt able to identify several solutions, such as, set an alarm for when to go to bed each night, limiting exposure to toxic people and leaving when feeling triggered by her environment, as well as set reminders throughout the day, that can help overcome identified barriers. Benefited from group by being able to utilize SMART educate to create a goal. Pt to continue IOP to continue to promote healthy boundaries and change behaviors, increase emotion regulation, and prevent decompensation. Narrative Note: []
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
--- NOTE | 2021-07-18 10:05 | BH.SGPN.GN ---
Behaviors/Verbalizations/Mental Status: []Client alert and oriented, casually dressed and groomed. Eye contact good. Motor activity appropriate. Speech within normal limits. Affect congruent, mood euthymic. Thoughts linear, logical, no signs of hallucinations or delusions. Client Response/Progress/Benefit: []Client responded well to session, AEB sharing and listening attentively to others.Client was an active participant in group discussion defining boundaries, stating that boundaries are limits you set for yourself and others to create a positive environment. Client listened attentively throughout group providing examples of the importance of healthy boundaries. Clinician provided psychoeducation on the types of boundaries, including physical, emotional, and intellectual. Client gave personal examples of both, including that having someone cross an emotional boundary feels invalidating. Client appeared to benefit from increased knowledge of the types of boundaries and increased self-awareness of personal boundaries. Will continue IOP treatment to continue increasing mood stability and decreasing negative self-talk to improve daily functioning. Narrative Note: []
--- NOTE | 2021-07-18 11:18 | BH.SGPN.GN ---
Behaviors/Verbalizations/Mental Status: []Client alert and oriented, casually dressed and groomed. Eye contact good. Motor activity appropriate. Speech within normal limits. Affect congruent, mood anxious, depressed. Thoughts linear, logical, no signs of hallucinations or delusions. Client Response/Progress/Benefit: []Pt responded well to session AEB listening attentively to peers and providing input and examples throughout. Pt attentive during continued psychoeducation on the different boundary types as well as the various boundary setting styles. Pt noted connecting most with the porous and rigid boundary setting styles. Pt shared she used to be ?very porous? with her emotional boundaries which led to many bad experiences for pt and resulted in relationships ending at times as a result. Pt stated she continues to struggle with this at times, especially when it comes to boundaries with her and children, but is recognizing the need to establish healthier boundaries with these individuals to better manage her own stress and anxiety levels. Pt was given a handout on strategies for healthy boundary setting. Pt identified wanting to work on continuing to limit her exposure to potentially triggering environments to improve boundary setting and implementation. Appeared to benefit from increasing insight to boundary setting and the impacts on mental health. Progress noted in pt?s self-report of improved mood, as well as consistent attendance and engagement in tx. Will continue IOP tx to prevent decompensation, improve emotional regulation skills, and prevent decompensation. Narrative Note: []
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
--- NOTE | 2021-07-22 10:15 | BH.SGPN.GN ---
Behaviors/Verbalizations/Mental Status: []Pt alert and oriented, neatly dressed and groomed. Eye contact good. Motor activity appropriate. Speech within normal limits. Affect constricted, mood euthymic. Thoughts linear, logical, no signs of hallucinations or delusions. Client Response/Progress/Benefit: []Pt responded well to session AEB sharing and listening attentively to others. Group discussed the benefits of managed anger and anger as a secondary emotion. Pt completed anger iceberg worksheet, reporting outward personal signs of anger as ?word vomit,? screaming, and being uncaring. Identified underlying emotions that contribute to anger including pain, stress, and rejection. Appeared to benefit from increased knowledge of the underlying emotions that impact anger and increased self-awareness of the internal and external consequences of anger. Will continue IOP tx to further improve emotional regulation skills and promote gains. Narrative Note: []
--- NOTE | 2021-07-22 11:15 | BH.SGPN.GN ---
Behaviors/Verbalizations/Mental Status: []Client alert and oriented, casually dressed and groomed. Eye contact good. Motor activity appropriate. Speech within normal limits. Affect congruent, mood anxious, irritable. Thoughts linear, logical, no signs of hallucinations or delusions. Client Response/Progress/Benefit: []Pt was engaged throughout AEB participating in discussion and taking notes. Pt reported connecting with psychoeducation portion reviewing importance of identifying physical warning signs for anger. Contributed as group brainstormed healthy coping skills for better managing anger which included: deep breathing, journaling, focusing on what?s in their control in the moment, exercise, communicating with supports when calm, and self-reflection. Pt appeared to benefit from identifying different techniques to manage anger as well as gaining awareness of the costs of anger. Pt reported when their anger is unmanaged, pt aften gets ?tunnel vison? and has a difficult time focusing on anything else. Pt selected using regular walks and positive affirmations to better prevent anger escalation, as well as manage sx when becoming angry. Will continue IOP tx to prevent decompensation and continue to promote use of emotional regulation skills. Narrative Note: []
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
--- NOTE | 2021-07-23 10:16 | BH.SGPN.GN ---
Behaviors/Verbalizations/Mental Status: []Pt alert and oriented, neatly dressed and groomed. Eye contact good. Motor activity appropriate. Speech within normal limits. Affect congruent, mood euthymic. Thoughts linear, logical, no signs of hallucinations or delusions. Client Response/Progress/Benefit: []Pt receptive to session, listening attentively and taking notes as the group brainstormed the positive and negative aspects of stress on physical and mental health. Identified racing thoughts and GI issues. Group worked together to define stress and provided input during discussion about eustress vs distress. Pt identified personal stressors which included: physical health, mental health, employment, transportation issues, setting boundaries, and emotional regulation. Pt reports belief that their stress jar is ?overflowing but slowly reducing.? Pt stated in the past when she was too stressed, pt reverted to screaming and fighting, but now she is using different skills. Seemed to benefit from increased awareness of current stressors and impact of too much stress on the mind and body. Will continue IOP tx to promote gains, increase distress tolerance skills, and establish aftercare. Narrative Note: []
--- NOTE | 2021-07-23 11:15 | BH.SGPN.GN ---
Behaviors/Verbalizations/Mental Status: []Client alert and oriented, casually dressed and groomed. Eye contact good. Motor activity appropriate. Speech within normal limits. Affect congruent, mood anxious, euthymic. Thoughts linear, logical, no signs of hallucinations or delusions. Client Response/Progress/Benefit: []Client engaged in session AEB listening attentively, taking notes, and providing input throughout. Client processed current stressors impacting their mental health with the group, sharing that she has seen significant improvements in her ability to manage current stressors without escalating to crisis point. Client participated in discussion about the 4 A's of managing stress and expressed connecting with the various benefits of each. Identified she would like to work on using the skills of avoidance to limit time spent with toxic people, as well as challenge herself to avoid distorted thinking patterns by working on more frequently checking in and challenging her perspective. Client seemed to benefit from increased awareness of the impact of stress on mental health and increasing repertoire of stress management strategies. Progress noted in client overall improved mood and reports of increased ability to regulate emotions despite ongoing stressors. Scheduled to discharge from [facility] tx tomorrow and encouraged to continue with outpatient counseling to maintain gains and continue to promote mood stability. Narrative Note: []
--- NOTE | 2021-07-24 10:05 | BH.SGPN.GN ---
Behaviors/Verbalizations/Mental Status: []Client alert and oriented, casually dressed and groomed. Eye contact good. Motor activity appropriate. Speech within normal limits. Affect congruent, mood euthymic. Thoughts linear, logical, no signs of hallucinations or delusions. Client Response/Progress/Benefit: []Client responded well to session AEB sharing and listening attentively to others. Client was an active participant in group discussion identifying common characteristics of ineffective communication and the benefits of effective communication, stating that it relieves stress. Client participated in group activity identifying communication styles, including passive, aggressive, passive aggressive, and assertive. Client defined assertive communication as clear and direct, and participated in group discussion identifying what each type of communication looks like in practice. Client appeared to benefit from increased knowledge of communication styles and the benefits of healthy communication. Will discharge from IOP tx as client has accomplished her tx goals and no longer meets criteria for IOP level of care. Narrative Note: []
--- NOTE | 2021-07-24 11:10 | BH.SGPN.GN ---
Behaviors/Verbalizations/Mental Status: []Client alert and oriented, casually dressed and appropriately groomed. Eye contact good. Motor activity appropriate. Speech WNL. Affect congruent, mood euthymic. Thoughts linear, logical, no signs of hallucinations or delusions. Client Response/Progress/Benefit: []Client responded well to session AEB client listening attentively to others and providing input during group discussion on the pay offs and costs of the different communication styles. Client reported in the past she was most often used aggressive style of communication. Pt reported she uses assertive communication more often because she tries to regulate her emotions. Attentive during psychoeducation on interpersonal DBT skill JENARO. Client seemed to benefit from increasing awareness of healthy strategies to improve communication. Progress noted with pt reporting improved communication and emotion regulation. Client has made treatment progress since starting IOP and will discharge today.
--- NOTE | 2021-07-24 11:54 | BH.MDN_ITS ---
Multi-Disciplinary Note - Note 45-min Individual Time Started:: 09:14 Date: 07/24/21 Purpose of session/treatment goals addressed:: Reviewed progress on treatment plan in IOP. Finalized aftercare plans and reviewed outcome measurement. Discussed areas of continued focus in outpatient tx following IOP d/c. Eye Contact:: Good Motor Activity:: Appropriate Appearance:: Casual Speech:: Appropriate Mood:: Euthymic Affect:: Full, Bright Thoughts:: Linear, Logical, No evidence of hallucinations/delusions noted Staff Interventions:: thought challenging, motivational interviewing, discharge planning, strengths perspective, reviewed DSM-5 Client Response:: Reviewed progress in IOP and on treatment plan goals. Pt was able to identify improved self-care, better ability to manage her emotions in the moment, and improved conflict resolution AEB pt reporting a reduction in lashing out on others when upset or anxious and improved ability to remove herself from triggering situations. Pt reports increased insight into her warning signs and triggers for mood dysregulation, as well as improved ability to identify and more regularly use healthy coping skills for depression and mood swings. According to DSM outcome measurement pt showed an overall symptom decrease of 50% since admission. Pt had some significant stressors this past week, including several interpersonal stressors involving her son to be ex- . Shared that she was able to follow-through with utilizing healthy coping skills to prevent from escalating to point of crisis in these moments. Pt self-admits she continues to struggle with poor boundaries regarding her relationship with her which continues to contribute to ongoing stressors and impacts her mental health management. Acknowledges the need for healthier boundaries however continues to report struggling with readiness to implement firmer boundaries regarding limiting contact with him. Recognizes potential risk of self-sabotage and impacts of continuing to engage in toxic relationships on maintaining gains made in tx. Reports plans to continue to address this in outpatient counseling. Pt has successfully maintained safety throughout IOP admission and denies any SI since IOP re-admission. Risks/Concerns:: Pt denies SI/HI plan or intents as of this date, Does report ongoing alcohol and marijuana use over the past several weeks. Reports she does not belief her use is concerning at this time and does not wish to pursue substance use specific counseling services. Ongoing substance use may impede pt ability to maintain tx gains post IOP d/c. Progress Toward Goals/Plan:: Progress noted. Pt has met treatment plan goals as noted above. DSM outcome measurements show a 50% decrease in overall symptoms since admission. DSM also shows a 100% reduction in scores on depression scale, 100% reduction on thoughts of harming self, and a 25% reduction in anxiety. Pt self-reports improved mood stability, improved self-care, and decrease in depression. Reports increased awareness and insight on healthy coping skills, though recommended continued focus on consistent implementation, as well as recommended additional tx focus on healthy boundaries. Plan is to discharge as pt no longer meets criteria for IOP level of care. Will begin aftercare program next week, 08/01/21. Time Stopped:: 09:54
--- NOTE | 2021-07-24 11:55 | BH.IGGP_ITS ---
Aftercare Plan - Demographics Treatment End Date:: 07/24/21 Psychiatrist:: Lora Flores Psychiatrist Office #:: [phone] [facility] Therapist:: Kaur Arnett Therapist Phone #:: [phone] - Plan Details Progress/Aftercare Plan Details:: You have made progress in taking the brave step to address your mental health needs rather than continuing to try and pushing them aside or focus on others rather than yourself. This is not an easy thing to do and deserves a lot of credit. Continuing to make time to prioritize your mental health, this is going to be alcocer to maintaining the progress you?ve made! Since beginning treatment, you have made strides in your overall ability to replace unhealthy ways of coping, like lashing out verbally at others, bottling things up, or reacting on impulse, with healthier skills. You are now more actively challenging yourself to take a step back and walk away, as well as being honest about how you?re doing before things escalate to the point of crisis. I know this is hard, but it?s important that you continue to be HONEST and regularly check-in with your supports. You have made progress with trying to catch and challenge your negative and distorted thoughts, as well as replace them with more positive self-talk. You have started to really begin surrounding yourself with more encouraging and self-empowering sources of media. Keep using those things to continue to improve the way you speak to yourself. You have come such a long way in beginning to set healthy boundaries with yourself by reminding yourself that you are allowed to set boundaries and need them in order to continue to make progress. I know this has been one of the most difficult things you have been working on since beginning IOP tx. Keep working on it and remember that you deserve to have people in your life who are willing to show up for you and love you unconditionally. I know it?s tempting to fall back on the old ways or coping or to try to numb your emotions when feeling overwhelmed. Remember, you have gone almost 2 months without being in the hospital and in such a healthier state of mind now. You have come such a long way and deserve to continue to show up for yourself. You have made huge strides in self-care, just look at the walking and daily routines you have been working to more consistently implement in your life! Self-care is ALCOCER to continued progress. I know you know this, just don?t forget to practice it! Strategies for Success:: Opposite Action!!! ? do what will help you, even when your brain is saying ?This won?t work? or ?I can?t do it?, even when it feels uncomfortable, even when you are tempted to give up or fall back into unhealthy coping behaviors. Doing the hard, uncomfortable, or anxious thing is not always fun, but it is often the healthier option. Regularly check-in with yourself and ask yourself how you are really doing. Do you recognize any of your warning signs? Are you going to be faced with a potential trigger soon? If you notice you are struggling, use your calming skills! Try engaging in a relaxing activity such as looking at affirmations or inspirational quotes, taking a walk, stepping away for a minute, painting, or deep breathing. REMEMBER, external stressors impact us all and can often be outside our control, but this does not leave us helpless. During these times we get to decide how we want to respond! Remember, you are in control of your responses to external stressors! Challenge negative thought patterns by trying to look at things from another perspective. Remember ?thoughts are thoughts, not facts?. Ask yourself ?How else can I think about this??, ?Do I have to give this thought value??, ?Is there evidence against this thought?, What would I say to someone else??, ?What would my supports say to me if I told them how I was feeling??. Continue to COMMUNICATE, COMMUNICATE, COMMUNICATE! Your supports won?t know how to help if you don?t let them be a part of the conversation. This includes communicating with yourself, your supports (even the ones you don?t always see eye to eye with), your psychiatrist, and your new therapist! Your mental health needs are important and deserve to be addressed! BOUNDARIES, BOUNDARIES, BOUNDARIES! Only you can be the one to say ?NO? to keeping the toxic people in your life. Keep challenging yourself to engage in activities that YOU enjoy and make YOU feel refreshed. These should be healthy activities that make you feel refreshed and give you a sense of emotional release. Remember to keep up with your medications and stay away from temptations to fall back into self-medicating habits. Please consider seeking additional supportive services for reducing alcohol use as well. Keep going to therapy! - Appointments Appointments/Referrals to Other Services:: Regular outpatient appointments with Adeel for individual counseling at [facility] every 1-2 weeks. Pt is linked with at [facility] for continued medication management. Scheduled to begin aftercare group here at [facility] starting on 08/01/21. - Medications Home Medications: Home Medications loratadine 10 mg PO DAILY 09/27/20 metoprolol succinate 25 mg PO DAILY 09/27/20 hydroxyzine HCl 25 mg tablet 25 - 75 mg PO BID PRN tab 10/18/20 lamotrigine 200 mg tablet 200 mg PO DAILY #90 tab 03/11/21 trazodone 50 mg tablet 50 mg PO QHS PRN #90 tab 03/11/21 albuterol sulfate 90 mcg/actuation aerosol inhaler 2 puff INHALATION Q6H PRN #8.5 g 03/15/21 budesonide-formoterol [Symbicort] 1 inh INHALATION DAILY 05/29/21 valacyclovir [Valtrex] 500 mg PO DAILY 05/29/21 dicyclomine 20 mg PO TID #10 tab 06/07/21 ondansetron 4 mg PO Q6H PRN #10 tab 06/07/21 ascorbic acid (vitamin C) [Vitamin C] 500 mg PO DAILY 06/12/21 cholecalciferol (vitamin D3) [Vitamin D3] 1,000 unit PO DAILY 06/12/21 vitamin B complex 1 tab PO DAILY 06/12/21 fluticasone propionate 50 mcg/actuation nasal spray,suspension 1 spray INTRANASAL BID #16 g 06/13/21 buspirone 10 mg tablet 20 mg PO BID #360 tab 06/14/21 sertraline [Zoloft] 150 mg PO DAILY 30 Days #45 tab 07/10/21
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
== END 2021-07-24 15:01 | disposition home or self-care (01) ==
LOC: BHIOP 08:16
PROVIDERS: PCP Internal Medicine; Referring Provider Psychiatry & Neurology Psychiatry; Visit Provider Psychiatry & Neurology Psychiatry
DX: F31.81 Bipolar II disorder (principal); F43.10 Post-traumatic stress disorder, unspecified; F60.3 Borderline personality disorder
CPT/HCPCS: 99214; H2012; H2020; S9480; 90834

== ENCOUNTER 2021-08-01 13:00 | Outpatient (RCR) | payer MEDICAID, SELFPAY ==
--- NOTE | 2021-08-01 14:00 | BH.COMM ---
Communication Note - Communication with Client Communication Note: Presented completed IOP and presents today to starting relapse prevention group which meets once weekly (1.5 hours) for 10 weeks. Case discussed with Dr. Muhammad with plan to admit with dx of F31.81
--- NOTE | 2021-08-01 14:44 | BH.MTP ---
Master Treatment Plan - Patient Information Program Physician:: Dr. Lora Flores Primary Therapist:: Kaur WONG - Psychiatric Diagnoses Psychiatric Diagnoses:: bipolar II disorder, most recent episode depressed F31.30; borderline personality disorder; complex PTSD Diagnosis Code(s):: F 31.30 - Estimated LOS Estimated LOS (in weeks):: 10 Problem/Goal #1 - Problem/Goal #1 Stated Goal:: client will maintain or see a reduction in symptoms AEB client score on the DSM 5 cross-cutting measure and improve client's daily functioning. - Objectives Objective #1 Stated Objective: Client will continue to consistently apply healthy coping skills to maintain progress made in IOP tx. Interventions: Through group therapy, client will review warning signs and triggers as well as healthy coping skills learned in IOP tx to successfully maintain gains while transitioning into outpatient therapy. Discharge Criteria: Client will have accomplished this goal when client's score on the DSM-5 cross-cutting measure has either maintained or reduced over a 10 week period. Target Date: 10/10/21 Review Date: 08/29/21 Status: open Objective #2 Stated Objective: Client will learn and utilize 2-3 maintenance strategies to prevent decompensation from original IOP DSM-5 scores. Interventions: Through group therapy, client will be provided with education on healthy maintenance behaviors, relapse prevention techniques, and healthy coping strategies. Discharge Criteria: Client will have accomplished this goal when can report using at least 2 maintenance skills to prevent decompensation compared to original IOP DSM-5 scores Target Date: 10/10/21 Review Date: 08/29/21 Status: open
--- NOTE | 2021-08-02 14:00 | BH.SGPN.GN ---
Behaviors/Verbalizations/Mental Status: []Client alert and oriented, casually dressed. Eye contact good. Motor activity appropriate. Speech within normal limits. Affect congruent, mood euthymic. Thoughts linear, logical, no signs of hallucinations or delusions. Client Response/Progress/Benefit: []Pt responded well to session AEB pt providing input during discussion and listening attentively to peers. Pt reported she has been walking 4 days a week, listening to positive affirmations, and playing [employer] games to help her manage emotions and stressors. Pt stated she has been trying to limit interaction with ex- which she noted has been helping. Pt engaged in discussion about self-love. Pt worked with group to identify strategies to increase self-love. Pt stated wanting to work on self-love by ending toxic relationships. Pt seemed to benefit from reviewing treatment progress and stressors as well as learning about how to increase self-love. Pt to continue aftercare group to promote ongoing use of healthy coping, continue to use open communication, and prevent decompensation.
== END 2021-08-03 23:59 ==
LOC: BHOG 13:00
PROVIDERS: PCP Internal Medicine; Referring Provider Psychiatry & Neurology Psychiatry; Visit Provider Psychiatry & Neurology Psychiatry
DX: F31.30 Bipolar disorder, current episode depressed, mild or moderate severity, unspecified (principal); F60.3 Borderline personality disorder; F43.10 Post-traumatic stress disorder, unspecified
CPT/HCPCS: 90853

== ENCOUNTER 2021-08-05 08:36 | Outpatient (RCR) | payer MEDICAID, SELFPAY ==
--- NOTE | 2021-08-08 14:00 | BH.SGPN.GN ---
Behaviors/Verbalizations/Mental Status: []Client alert and oriented, casual in appearance. Eye contact good. Motor activity appropriate. Speech within normal limits. Affect congruent. Mood euthymic. Thoughts linear, logical, no signs of hallucinations or delusions Client Response/Progress/Benefit: []Pt responded well to session AEB pt openly sharing thoughts and feelings and completing worksheet. Pt completed the self-reflection sheet stating she has been following up with her outpatient counseling, psychiatry, and taking her medications consistently. Pt also reports using coping skills such as opposite action, distractions, setting boundaries, and talking with friends. Pt responded well to group discussion and review about self-care. Pt stated she will work on following self-care activities: walking, listening to music, eating healthy, using affirmations, and completing daily hygiene routine. Pt seemed to benefit from support from peers and identifying self-care plan. Pt to continue aftercare to promote mood stability and continue use of healthy coping. Narrative Note: []
--- NOTE | 2021-08-22 14:00 | BH.SGPN.GN ---
Behaviors/Verbalizations/Mental Status: []Pt alert and oriented, neatly dressed and groomed. Eye contact good. Motor activity appropriate. Speech within normal limits. Affect congruent, mood euthymic. Thoughts linear, logical, no signs of hallucinations or delusions. Client Response/Progress/Benefit: []Pt responded well to session, actively contributing. Pt checked in using the self-reflection worksheet. Pt did not have counseling or psychiatry this week. Pt has been taking medication as prescribed and has been using breathing, opposite action, the STOPP technique, and self-talk to cope with stressors. Pt contributed to the discussion on gratitude and its benefits. Pt attentive during discussion of internal vs. external gratitude. Pt receptive to participating in the group seven-day gratitude challenge. Pt selected one gratitude reflection per day and stated to hold herself accountable, she is going to ?make this crafty? and hang it up at home. Appeared to benefit from connecting with peers and practicing gratitude. Will continue IOP tx promote mood stability and reinforce healthy coping skills. Narrative Note: []
--- NOTE | 2021-08-29 14:00 | BH.SGPN.GN ---
Behaviors/Verbalizations/Mental Status: []Client alert and oriented, casually dressed and groomed. Eye contact good. Motor activity appropriate. Speech within normal limits. Affect congruent, mood euthymic. Thoughts linear, logical, no signs of hallucinations or delusions. Client Response/Progress/Benefit: []Pt responded well to session, provided input, and listened attentively to peers. Reported continuing to maintain consistent with outpatient counseling and is working to schedule an appointment for medication management. Identified ongoing use of healthy skills such as deep breathing, going for walks, and completing a daily gratitude challenge. Pt reports this has helped to prevent unhealthy thinking patterns and maintain a more positive perspective. Pt engaged in discussion on self-advocacy. Worked with group to identify the benefits of self-advocacy, as well as common barriers. Reviewed the personal bill of rights and shared she does well to advocate for her right to ?change my mind?. Discussed struggling with personal right of ?I have the right to make decisions without the approval of others?. 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 Client seemed to benefit from reviewing treatment progress and skill application, as well as learning about how to increase self-advocacy. Client to continue aftercare to promote gains, prevent regression, and further improve functioning. Narrative Note: []
--- NOTE | 2021-08-29 14:56 | BH.DS ---
Discharge Summary - Demographics Date of Admission:: 08/01/21 Discharge Date: 08/29/21 Presenting Problems at Admission:: Pt discharged from IOP tx and transitioned to IOP aftercare to maintain gains Pt made in [facility] and to reinforce healthy coping skills. At admission to IOP aftercare, pt continued to report symptoms of depression, anxiety, and mood instability of less severity. Pt also continued to experience relationship, financial, and housing stress. Discharge Diagnoses:: bipolar II disorder, most recent episode depressed F31.30; borderline personality disorder; complex PTSD Reason for Discharge:: IOP aftercare was canceled due to lack of attendance by pts. Pt discharged and will continue with traditional outpatient counseling. - Treatment Progress During Treatment & Response: Pt responded well and made progress in IOP aftercare as evidenced by pt's participation in group discussions and self-report of consistently applying coping skills. Pt's overall DSM-5 scores decreased by an additional 68% from IOP admission. Pt?s depression decreased by 50% since IOP admission and anxiety decreased by 63% Additionally, at discharge Pt was reporting an improved mood, more positive thinking patterns, consistent use of healthy coping skills, and improving boundary setting. Issues Still to be Addressed:: Would benefit from ongoing individual outpatient treatment focusing on continued work on communication and emotion regulation skills. Recommended to continue with counseling to work on healthy boundaries and ongoing stress management skills as pt continues to work through her divorce. Pt may benefit from continued community support through the [employer], as well as engaging in local divorce support services. Pt has a hx of trauma and may benefit from trauma counseling as well. Discharge Recommendations/Instructions:: Pt will continue seeing her outpatient therapist at [facility] who pt sees weekly. Pt also has medication management through [facility] and pt will follow up with them for ongoing medication needs. Discharge Handout: Complete Discharge Handout with client on aftercare options and continuity of care.
--- NOTE | 2021-08-29 15:50 | BH.MTP_ITS ---
Treatment Plan Review Date of Admission:: 08/01/21 Date of Treatment Plan Review:: 08/29/21 Admitting Diagnoses:: bipolar II disorder, most recent episode depressed F31.30; borderline personality disorder; complex PTSD Current Diagnoses:: bipolar II disorder, most recent episode depressed F31.30; borderline personality disorder; complex PTSD Patient's Response to Treatment:: Pt responding well to treatment AEB pt's consistent attendance, active engagement in group discussions, follow up with outpatient therapy and psychiatry, and reporting use of skills outside treatment environment. Status of Current Problems and Symptoms: Ongoing stressors include interpersonal relationship issues, finances, transportation at times, her daughter's mental health, and maintaining progress from IOP. Problem #1 Problem Name:: Pt will maintain or see a reduction in sx Status of Goals:: Obj 1 - Pt has been able to maintain gains made in IOP based on pt's additional reduction in symptoms since IOP admission by 68%. Based on pt's self-report she reports improved mood, increased ability to regulate her emotions, no SI, and improved boundaries. Obj 2 - complete with ongoing work encouraged. Pt has been consistently reporting using grounding skills, self- care, thought challenging, and continuing with therapy. Team Recommendations:: Recommended client continue IOP aftercare group in addition to attending regular outpatient counseling in order to maintain gains.
--- NOTE | 2021-09-05 08:35 | BH.MTP ---
[facility] - Patient Information Program Physician:: Dr. Lora Flores Primary Therapist:: Kaur WONG - Psychiatric Diagnoses Psychiatric Diagnoses:: Bipolar 2 disorder (most recent episode depressed) F 31.30; Borderline personality disorder; PTSD, severe and chronic complex Diagnosis Code(s):: F 31.30 - Estimated LOS Estimated LOS (in weeks):: 10 Problem/Goal #1 - Problem/Goal #1 Stated Goal:: client will maintain or see a reduction in symptoms AEB client score on the DSM 5 cross-cutting measure and improve client's daily functioning. - Objectives Objective #1 Stated Objective: Client will continue to consistently apply healthy coping skills to maintain progress made in IOP tx. Interventions: Through group therapy, client will review warning signs and triggers as well as healthy coping skills learned in IOP tx to successfully maintain gains while transitioning into outpatient therapy. Discharge Criteria: Client will have accomplished this goal when client's score on the DSM-5 cross-cutting measure has either maintained or reduced over a 10 week period. Target Date: 10/10/21 Review Date: 08/29/21 Status: open Objective #2 Stated Objective: Client will learn and utilize 2-3 maintenance strategies to prevent decompensation from original IOP DSM-5 scores. Interventions: Through group therapy, client will be provided with education on healthy maintenance behaviors, relapse prevention techniques, and healthy coping strategies. Discharge Criteria: Client will have accomplished this goal when can report using at least 2 maintenance skills to prevent decompensation compared to original IOP DSM-5 scores Target Date: 10/10/21 Review Date: 08/29/21 Status: open
== END 2021-09-03 23:59 ==
LOC: BHOG 08:36
PROVIDERS: PCP Internal Medicine; Referring Provider Psychiatry & Neurology Psychiatry; Visit Provider Psychiatry & Neurology Psychiatry
DX: F31.30 Bipolar disorder, current episode depressed, mild or moderate severity, unspecified (principal); F43.10 Post-traumatic stress disorder, unspecified; F60.3 Borderline personality disorder
CPT/HCPCS: 90853

== ENCOUNTER 2021-09-04 07:35 | Outpatient (RCR) | payer MEDICAID, SELFPAY | END 2021-09-25 09:54 | disposition home or self-care (01) | LOC: BHOG 07:35 | PROVIDERS: PCP Internal Medicine; Referring Provider Psychiatry & Neurology Psychiatry; Visit Provider Psychiatry & Neurology Psychiatry | DX: Z00.00 Encounter for general adult medical examination without abnormal findings (principal) ==

== ENCOUNTER → 2021-09-06 | Outpatient (CLI) | payer MEDICAID, SELFPAY ==
[2021-09-06 17:17] LABS: ALB/GLOB Ratio 1.1 RATIO (0.9-2.4); AST(SGOT) 18 U/L (15-37); Alanine Aminotransfer ALT/SGPT 24 U/L (13-56); Albumin, Serum 3.8 g/dL (3.2-5.0); Alkaline Phosphatase 60 U/L (45-117); Anion Gap 4 (5-15); BUN 13 mg/dL (7-18); Calcium,Total 9.1 mg/dL (8.5-10.1); Chloride 106 mmol/L (98-107); Creatinine, Serum 0.81 mg/dL (0.55-1.02); EST Glomerular Filtration Rate 80 mL/min (>60); Est Glom Filt Rate - Afr Amer 96 mL/min (>60); Globulin 3.4 g/dL (2.2-4.2); Glucose 87 mg/dL (74-106); Potassium 3.7 mmol/L (3.5-5.1); Protein, Total 7.2 g/dL (6.4-8.2); Sodium Level 139 mmol/L (136-145); Thyroid Stim Hormone (TSH) 0.73 uIU/mL (0.358-3.74)
[2021-09-06 17:18] LABS: Absolute Lymphocyte Count 1.72 X10^3/uL (0.83-4.51); Absolute Neutrophil Count 3.9 X10^3/uL (2.0-7.7); Basophil# 0.02 X10^3/uL; Basophil% 0.3 % (0-1); Eosinophil# 0.06 X10^3/uL; Erythrocyte Sedimentation Rate 17 mm/hr (0-30); Hematocrit 37.1 % (37-47); Hemoglobin 12.5 g/dL (12.0-15.0); Lymphocyte # 1.72 X10^3/ul (0.83-4.51); Lymphocyte % 28.2 % (19-41); Mean Corp Hgb Conc 33.7 g/dL (32-36); Mean Corpuscular Hgb 31.5 pg (27.0-32.0); Mean Corpuscular Volume 93.5 fL (81-99); Mean Platelet Vol. 10.4 fl (6.2-12.0); Monocyte# 0.36 X10^3/uL; Monocyte% 5.9 % (0-10); NRBC Flagged by Analyzer 0 % (0-5); Neutrophil # 3.92 X10^3/uL (2.7-7.7); Neutrophil % 64.4 % (47-70); Platelet Count 217 K/mm3 (150-450); RBC Distribution Width SD 41.8 fl (35.1-43.9); Red Blood Count 3.97 M/mm3 (4.2-5.4); White Blood Count 6.1 K/mm3 (4.4-11.0)
[2021-09-06 20:35] LABS: Chlamydia Trachomatis by PCR Negative (Negative); Neisserai gonorrhoeae by PCR Negative (Negative); Probe Check PASS; Sample Adequacy Control PASS; Specimen Processing Control PASS
[2021-09-08 08:34] LABS: HSV 2 IgG < 0.91 index (0.00-0.90)
[2021-09-09 09:06] LABS: HIV - WCH Non-Reactive (Nonreactive); Hepatitis B Surface Antigen Non-Reactive (Nonreactive); Syphilis Antibodies Non-reactive
== END | disposition home or self-care (01) ==
LOC: BIMLAB 14:59
PROVIDERS: PCP Internal Medicine; Visit Provider Internal Medicine
DX: R53.81 Other malaise (principal); R53.83 Other fatigue; Z20.2 Contact with and (suspected) exposure to infections with a predominantly sexual mode of transmission; Z13.29 Encounter for screening for other suspected endocrine disorder
CPT/HCPCS: 36415; 80053; 84443; 85025; 85652; 86695; 86696; 86703; 86780; 87340; 87491; 87591

== ENCOUNTER 2021-12-28 08:16 | Emergency (ER) | payer MEDICAID, SELFPAY ==
[2021-12-28 08:17] VITALS: BP 135/78; PULSE 72; RESP 16; TEMP 36.3; O2SAT 96; BMI 34.7
--- NOTE | 2021-12-28 08:46 | EDS_ITS ---
HPI History of Present Illness Chief Complaint: Upper Extremity Injury Informant: patient Narrative Narrative: 6-year-old female arriving to the emergency department chief complaint of right- sided neck pain. Patient states has been going on since yesterday. She notes stiffness of her neck and a right-sided headache. She denies any radicular symptoms. No trauma. She does note a history of whiplash in the past. No fevers or rashes. [facility] Medical History Abdominal pain ADD (attention deficit disorder) Alcohol use disorder Asthma Bipolar 2 disorder Blood in stool Borderline personality disorder Cervicalgia Change in bowel habit Chronic back pain Chronic pain CTS (carpal tunnel syndrome) Degenerative disc disease Diabetes Epigastric abdominal pain Exposure to sexually transmitted disease (STD) Fibromyalgia Food intolerance Genital herpes Hemorrhoids History of change in bowel patterns Hypertension Hypoglycemia Hypokalemia Impaired fasting glucose Malaise and fatigue Neurocirculatory asthenia Neuropathy Obesity PAC (premature atrial contraction) Pain of right thumb Paresthesia and pain of both upper extremities PTSD (post-traumatic stress disorder) Radiculopathy, cervical region Screening for thyroid disorder Seasonal allergies Seizures Severe anxiety with panic Sinusitis, chronic Sleep apnea Spondylosis of cervical spine SVT (supraventricular tachycardia) SVT (supraventricular tachycardia) Home Medications loratadine 10 mg tablet 10 mg PO DAILY 09/27/20 [History Last Taken Unknown] metoprolol succinate 25 mg capsule sprinkle, ext. release 24 hr 25 mg PO DAILY 09/27/20 [History Last Taken Unknown] hydroxyzine HCl 25 mg tablet 25 - 75 mg PO BID PRN Anxiety 10/18/20 [History Last Taken Unknown] lamotrigine 200 mg tablet 200 mg PO DAILY #90 tabs 03/11/21 [Rx Last Taken Unknown] trazodone 50 mg tablet 50 mg PO QHS PRN Nausea #90 tabs 03/11/21 [Rx Last Taken Unknown] albuterol sulfate 90 mcg/actuation aerosol inhaler 2 puff inhalation Q6H PRN Shortness Of Breath #8.5 grams 03/15/21 [Rx Last Taken Unknown] budesonide-formoterol HFA 160 mcg-4.5 mcg/actuation aerosol inhaler (Symbicort) 1 inh inhalation DAILY 05/29/21 [History Last Taken Unknown] valacyclovir 500 mg tablet (Valtrex) 500 mg PO DAILY 05/29/21 [History Last Taken Unknown] ondansetron 4 mg disintegrating tablet 4 mg PO Q6H PRN nausea and vomiting #10 tabs 06/07/21 [Rx Last Taken Unknown] ascorbic acid (vitamin C) 500 mg tablet (Vitamin C) 500 mg PO DAILY 06/12/21 [History Last Taken Unknown] cholecalciferol (vitamin D3) 25 mcg (1,000 unit) tablet (Vitamin D3) 1,000 unit PO DAILY 06/12/21 [History Last Taken Unknown] vitamin B complex 1 tab PO DAILY 06/12/21 [History Last Taken Unknown] fluticasone propionate 50 mcg/actuation nasal spray,suspension 1 spray intranasal BID #16 grams 06/13/21 [Rx Last Taken Unknown] buspirone 10 mg tablet 20 mg PO BID #360 tabs 06/14/21 [Rx Last Taken Unknown] sertraline 100 mg tablet (Zoloft) 150 mg PO DAILY 30 days #45 tabs 07/10/21 [Rx Last Taken Unknown] Allergy/AdvReac Type Severity Reaction Status Date / Time milk Allergy Severe upset Verified 12/28/21 08:20 stomach and body aches mold Allergy Intermediate wheezing Verified 12/28/21 08:20 tree and shrub pollen Allergy Intermediate sneezing Verified 12/28/21 08:20 latex Allergy Swelling Verified 12/28/21 08:20 gluten AdvReac Other Verified 12/28/21 08:20 haloperidol [From Haldol] AdvReac Other Verified 12/28/21 08:20 Family History Father Arthritis Alcoholism Depression Grandmother Diabetes Cancer cervical cancer Thyroid disorder Heart disease Uterine cancer Brother Cancer Leukemia Mother Alcoholism Anxiety Depression Grandfather Depression Parkinson disease Sister CVA (cerebral vascular accident) Surgical History History of left breast biopsy History of tonsillectomy history right foot surgery Social History Smoking Status: Never smoker alcohol intake: current alcohol intake frequency: a few times a week substance use type: does not use ROS ROS ED Constitutional Constitutional ED: Denies chills or weight loss Eyes Eyes: Denies change in vision or diplopia ENT ENT ED: Denies ear pain, rhinorrhea or sore throat Cardiovascular Cardiovascular: Denies chest pain, orthopnea, palpitations or racing heartbeat Respiratory/Chest Respiratory/Chest: Denies cough, dyspnea or orthopnea Gastrointestinal Gastrointestinal: Denies abdominal pain, diarrhea, nausea or vomiting Genitourinary Genitourinary ED: Denies dysuria, hematuria or urinary frequency Musculoskeletal Musculoskeletal: Reports back pain and neck pain; Denies arthralgias or myalgias Integumentary Denies abscess or rash Neurologic Neurologic: Reports headache(s); Denies weakness Psychiatric Psychiatric: Denies anxiety, depression, suicidal ideation or suicidal thoughts Endocrine Endocrinology: Denies polydipsia, polyphagia or polyuria Allergic/Immunologic Allergic/Immunologic ED: Denies mouth swelling, tongue swelling or urticaria EXAM Physical Exam Const Vital Signs: 12/28/21 08:17 Temperature 97.3 F L Temperature Source Oral Pulse Rate 72 Respiratory Rate 16 Blood Pressure 135/78 H Blood Pressure Mean 97 Pulse Ox 96 Oxygen Delivery Method Room Air Positive well nourished and well developed General Appearance ED: well developed HEENT Reports normocephalic, head/scalp atraumatic and moist mucous membranes Eyes PERRL and EOMs intact bilaterally Neck full ROM, no lymphadenopathy, supple and no JVD Neck Narrative: Patient reports tenderness to palpation over the right trapezius musculature region. There seems to be some muscular spasm when compared to the left. No rashes. Resp normal respiratory effort and clear to auscultation bilaterally Cardio regular rate, regular rhythm and no murmurs GI normal to inspection, nondistended, normoactive bowel sounds and non-tender Palpation: soft Back/Spine no CVA tenderness and normal ROM Extremity normal to inspection General Extremety ED: Negative for edema General Extremity: Negative for edema Neuro oriented x3 and CN's II-XII intact bilaterally Sensorium / Orientation: alert Motor Exam: strength 5/5 throughout Psych mental status grossly normal Mood & Affect: Negative for depressed or tearful Skin no rashes or lesions noted and no wounds MDM MDM MDM Narrative Medical decision making narrative: Chief complaint of right-sided neck pain. Appears to be muscular spasm in nature. Will prescribe some Flexeril. Follow-up as needed return if worsening or concerns. Discharge Plan Triage Chief Complaint: Upper Extremity Injury ED Provider: Kyle Ro Dx/Rx/DC Orders Prescriptions: No Action albuterol sulfate 90 mcg/actuation HFA aerosol inhaler 2 puff inhalation Q6H PRN (Reason: Shortness Of Breath) Qty: 8.5 1RF loratadine 10 mg Tablet 10 mg PO DAILY metoprolol succinate 25 mg Capsule,Sprinkle,Er 24hr 25 mg PO DAILY hydroxyzine HCl 25 mg tablet 25 - 75 mg PO BID PRN (Reason: Anxiety) valacyclovir [Valtrex] 500 mg Tablet 500 mg PO DAILY budesonide-formoterol [Symbicort] 160-4.5 mcg/actuation Hfa Aerosol Inhaler 1 inh INHALATION DAILY ondansetron 4 mg tablet,disintegrating 4 mg PO Q6H PRN (Reason: nausea and vomiting) Qty: 10 0RF ascorbic acid (vitamin C) [Vitamin C] 500 mg Tablet 500 mg PO DAILY vitamin B complex Tablet 1 tab PO DAILY cholecalciferol (vitamin D3) [Vitamin D3] 25 mcg (1,000 unit) Tablet 1,000 unit PO DAILY sertraline [Zoloft] 100 mg tablet 150 mg PO DAILY 30 Days Qty: 45 1RF trazodone 50 mg tablet 50 mg PO QHS PRN (Reason: Nausea) Qty: 90 1RF lamotrigine 200 mg tablet 200 mg PO DAILY Qty: 90 1RF fluticasone propionate 50 mcg/actuation spray,suspension 1 spray intranasal BID Qty: 16 2RF Rx Instructions: administer into each nostril buspirone 10 mg tablet 20 mg PO BID Qty: 360 1RF Primary Care Provider: Shelli Franco Referrals: Shelli Franco MD [Primary Care Provider] -
[2021-12-28] MEDS: Ketorolac 60 MG/2 ML Vial IM (08:56)
[2021-12-28 09:17] VITALS: BP 142/79; PULSE 69; RESP 16; O2SAT 96
== END 2021-12-28 09:20 | disposition home or self-care (01) ==
LOC: ED 08:51
PROVIDERS: Emergency Provider Emergency Medicine; PCP Internal Medicine; Visit Provider Emergency Medicine
DX: M62.838 Other muscle spasm (principal); F31.81 Bipolar II disorder; F60.3 Borderline personality disorder; E11.40 Type 2 diabetes mellitus with diabetic neuropathy, unspecified; G40.909 Epilepsy, unspecified, not intractable, without status epilepticus; F98.8 Other specified behavioral and emotional disorders with onset usually occurring in childhood and adolescence; J45.909 Unspecified asthma, uncomplicated; G89.29 Other chronic pain; M79.7 Fibromyalgia; I10 Essential (primary) hypertension; F43.10 Post-traumatic stress disorder, unspecified; G47.30 Sleep apnea, unspecified; M54.12 Radiculopathy, cervical region; Z79.899 Other long term (current) drug therapy
CPT/HCPCS: 96372; 99285

== ENCOUNTER 2022-01-31 02:36 | Emergency (ER) | payer MEDICAID, SELFPAY ==
[2022-01-31 02:37] VITALS: BP 126/59; PULSE 58; RESP 16; TEMP 36.4; O2SAT 97; BMI 34.5
--- NOTE | 2022-01-31 02:40 | EKG12_ITS ---
Test Reason : CP Blood Pressure : / mmHG Vent. Rate : 071 BPM Atrial Rate : 071 BPM P-R Int : 160 ms QRS Dur : 076 ms QT Int : 422 ms P-R-T Axes : 062 065 049 degrees QTc Int : 458 ms Sinus rhythm with Premature atrial complexes Otherwise normal ECG When compared with ECG of 05-MAR-2021 23:16, Premature atrial complexes are now Present Confirmed by SANTO HARRIS, LUIS ([id number]), newspaper photo editor IJEOMA MANZO ([id number]) on 02/03/2022 1:04:18 PM Referred By: BRITT Confirmed By:LUIS BLANCHARD MD
--- NOTE | 2022-01-31 02:59 | RAD_ITS ---
STUDY: X-RAY CHEST REASON FOR EXAM: Female, 46 years old. chest pain TECHNIQUE: Single AP portable view of the chest. COMPARISON: None. FINDINGS: The lungs are clear and expanded. There is no demonstrated pleural abnormality. Normal size heart. Normal mediastinum and thiago. Normal visualized pulmonary arteries. Normal visualized aortic arch and descending thoracic aorta. Normal visualized thoracic spine. Normal visualized ribs, clavicles, and shoulders. There is no demonstrated abnormality of the visualized soft tissue structures of the upper abdomen. RAD/Chest 1 View (Portable) IMPRESSION: Normal x-ray examination of the chest. Electronically Signed: Cabrera Dumont MD at 3:28 EDT ,
[2022-01-31 03:05] LABS: Absolute Lymphocyte Count 2.94 X10^3/uL (0.83-4.51); Absolute Neutrophil Count 3.6 X10^3/uL (2.0-7.7); Basophil# 0.05 X10^3/uL; Basophil% 0.7 % (0-1); Eosinophils% 1.4 % (0-5); Hemoglobin 12.4 g/dL (12.0-15.0); Lymphocyte # 2.94 X10^3/ul (0.83-4.51); Lymphocyte % 40.6 % (19-41); Mean Corp Hgb Conc 34.4 g/dL (32-36); Mean Corpuscular Hgb 31.6 pg (27.0-32.0); Mean Corpuscular Volume 91.8 fL (81-99); Mean Platelet Vol. 9.7 fl (6.2-12.0); Monocyte% 8.3 % (0-10); NRBC Flagged by Analyzer 0 % (0-5); Neutrophil # 3.55 X10^3/uL (2.7-7.7); Neutrophil % 48.9 % (47-70); Platelet Count 203 K/mm3 (150-450); RBC Distribution Width CV 11.9 % (11.6-14.6); RBC Distribution Width SD 39.8 fl (35.1-43.9); Red Blood Count 3.92 M/mm3 (4.2-5.4); White Blood Count 7.3 K/mm3 (4.4-11.0)
[2022-01-31 03:39] VITALS: BP 115/77; PULSE 75; RESP 16
[2022-01-31 04:02] LABS: Anion Gap 7 (5-15); BUN 13 mg/dL (7-18); BUN/Creat Ratio 16.8 RATIO (10-20); Calcium,Total 8.8 mg/dL (8.5-10.1); Chloride 108 mmol/L (98-107); Creatinine, Serum 0.77 mg/dL (0.55-1.02); EST Glomerular Filtration Rate 84 mL/min (>60); Est Glom Filt Rate - Afr Amer 102 mL/min (>60); Glucose 86 mg/dL (74-106); Potassium 3.5 mmol/L (3.5-5.1); Sodium Level 140 mmol/L (136-145); Troponin-I HS (w/2H Reflex) 6 pg/mL (3.0-54.0)
[2022-01-31 05:03] LABS: Reflex Troponin-HS? (from REC) Y
[2022-01-31 05:19] LABS: Troponin-I HS 8 pg/mL (3.0-54.0)
--- NOTE | 2022-01-31 05:57 | ED.VIS.CHEST ---
HPI History of Present Illness Chief Complaint: Chest Pain Narrative Narrative: Patient is a 46-year-old female with history of SVT (no longer on metoprolol), seizure disorder and bipolar disorder presenting with chest pain and palpitations. Patient states she she is going through divorce and has no contact order with her estranged . She recently came in contact with one of her daughters this last month and found out that all of her stuff is in shed. She feels that her is moving on and she feels alone. Patient was homeless and living in a fdc however she currently has her own place however she is having some financial issues. She is not sure if her discomfort is related to her stress. She does follow with the counseling center. She feels safe at home. Denies any HI or SI. She states tonight she woke up went to the bathroom when she laid down she was uncomfortable in her chest. She felt like her heart was beating in the center of her chest and then also in her left side of her chest near the midaxillary line. She felt her heart was beating irregular and she also had tightness in her chest. She took 7 x 81 mg aspirin prior to arrival because she thinks is what she had a prior time when she had episode of chest pain. No she denies any shortness of breath or difficulty breathing. Denies any fever or chills. Denies any GI or symptoms. No other complaints at this time. She does have hydroxyzine at home but did not take it. She does have a history of PACs that she feels. She denies any history of DVT or PE. Is not on any estrogen supplements. Denies any new swelling of her legs. Denies any recent travel or immobilization. [facility] Medical History Abdominal pain ADD (attention deficit disorder) Alcohol use disorder Asthma Bipolar 2 disorder Blood in stool Borderline personality disorder Cervicalgia Change in bowel habit Chronic back pain Chronic pain CTS (carpal tunnel syndrome) Degenerative disc disease Diabetes Epigastric abdominal pain Exposure to sexually transmitted disease (STD) Fibromyalgia Food intolerance Genital herpes Hemorrhoids History of change in bowel patterns Hypertension Hypoglycemia Hypokalemia Impaired fasting glucose Malaise and fatigue Neurocirculatory asthenia Neuropathy Obesity PAC (premature atrial contraction) Pain of right thumb Paresthesia and pain of both upper extremities PTSD (post-traumatic stress disorder) Radiculopathy, cervical region Screening for thyroid disorder Seasonal allergies Seizures Severe anxiety with panic Sinusitis, chronic Sleep apnea Spondylosis of cervical spine SVT (supraventricular tachycardia) SVT (supraventricular tachycardia) Home Medications loratadine 10 mg tablet 10 mg PO DAILY 09/27/20 [History Last Taken Unknown] lamotrigine 200 mg tablet 200 mg PO DAILY #90 tabs 03/11/21 [Rx Last Taken Unknown] trazodone 50 mg tablet 50 mg PO QHS PRN Nausea #90 tabs 03/11/21 [Rx Last Taken Unknown] budesonide-formoterol HFA 160 mcg-4.5 mcg/actuation aerosol inhaler (Symbicort) 1 inh inhalation DAILY 05/29/21 [History Last Taken Unknown] valacyclovir 500 mg tablet (Valtrex) 500 mg PO DAILY 05/29/21 [History Last Taken Unknown] cholecalciferol (vitamin D3) 25 mcg (1,000 unit) tablet (Vitamin D3) 1,000 unit PO DAILY 06/12/21 [History Last Taken Unknown] fluticasone propionate 50 mcg/actuation nasal spray,suspension 1 spray intranasal BID #16 grams 06/13/21 [Rx Last Taken Unknown] buspirone 10 mg tablet 20 mg PO BID #360 tabs 06/14/21 [Rx Last Taken Unknown] sertraline 100 mg tablet (Zoloft) 150 mg PO DAILY 30 days #45 tabs 07/10/21 [Rx Last Taken Unknown] niacin 50 mg tablet mg PO DAILY 01/31/22 [History Last Taken Unknown] vitamin B12 1 mg-folic acid 0.8 mg tablet tab PO DAILY 01/31/22 [History Last Taken Unknown] Allergy/AdvReac Type Severity Reaction Status Date / Time milk Allergy Severe upset Verified 01/31/22 02:40 stomach and body aches mold Allergy Intermediate wheezing Verified 01/31/22 02:40 tree and shrub pollen Allergy Intermediate sneezing Verified 01/31/22 02:40 latex Allergy Swelling Verified 01/31/22 02:40 gluten AdvReac Other Verified 01/31/22 02:40 haloperidol [From Haldol] AdvReac Other Verified 01/31/22 02:40 Family History Father Arthritis Alcoholism Depression Grandmother Diabetes Cancer cervical cancer Thyroid disorder Heart disease Uterine cancer Brother Cancer Leukemia Mother Alcoholism Anxiety Depression Grandfather Depression Parkinson disease Sister CVA (cerebral vascular accident) Surgical History History of left breast biopsy History of tonsillectomy history right foot surgery Social History Smoking Status: Never smoker alcohol intake: current alcohol intake frequency: a few times a week substance use type: does not use ROS ROS ED Constitutional Constitutional ED: Denies chills or fever(s) Eyes Eyes: Denies change in vision ENT ENT ED: Denies rhinorrhea or sore throat Cardiovascular Cardiovascular: Reports as per HPI, chest pain and palpitations Respiratory/Chest Respiratory/Chest: Denies cough or dyspnea Gastrointestinal Gastrointestinal: Denies abdominal pain, nausea or vomiting Genitourinary Genitourinary ED: Denies dysuria or urinary frequency Musculoskeletal Musculoskeletal: Denies arthralgias or myalgias Integumentary Denies rash Neurologic Neurologic: Denies headache(s) or paresthesias Psychiatric Psychiatric: Reports anxiety; Denies depression or suicidal ideation EXAM Physical Exam Const Vital Signs: 01/31/22 02:37 01/31/22 02:40 01/31/22 03:17 Temperature 97.6 F L Temperature Source Temporal Pulse Rate 58 L Respiratory Rate 16 Respiratory Effort Normal Blood Pressure 126/59 H Blood Pressure Mean 81 Pulse Ox 97 Oxygen Delivery Method Room Air Room Air 01/31/22 03:39 Temperature Temperature Source Pulse Rate 75 Respiratory Rate 16 Respiratory Effort Blood Pressure 115/77 Blood Pressure Mean 89 Pulse Ox Oxygen Delivery Method Positive well nourished and well developed General Appearance ED: well developed and NAD HEENT Reports moist mucous membranes Eyes PERRL and EOMs intact bilaterally Neck supple and no JVD Chest Wall inspection of chest normal and palpation of chest normal Resp normal respiratory effort and clear to auscultation bilaterally Cardio regular rate, regular rhythm and no murmurs Peripheral Pulses: pulses 2+ throughout GI normal to inspection, nondistended, normoactive bowel sounds, soft to palpation and non-tender Extremity normal to inspection Extremity Narrative: 1+ pitting bilateral edema, chronic per patient. Patient has a thumb spica splint on her right wrist Neuro oriented x3 and no sensory deficits noted Sensorium / Orientation: awake and alert Motor Exam: strength 5/5 throughout Psych mental status grossly normal Psych Narrative: No HI or SI Mood & Affect: depressed, anxious and tearful Skin no rashes or lesions noted and no wounds Heart Score History: Slightly/Non-Suspicious ECG: Normal Age: >45 - <65 years Risk Factors: 1 or 2 Risk Factors Troponin: </= Normal Limit Score: 2 MDM MDM MDM Narrative Medical decision making narrative: Patient is evaluated for palpitations and chest discomfort. Does not have any significant cardiac history. Is a lot of stressors and anxiety. EKG shows PACs. Patient seems to feel these and I suspect this is causing her palpitations. She is low risk for PE and I do not think a D-dimer is indicated. Chest x-rays not show any acute process. High since he troponin is normal at 6 and 8. Low suspicion for ACS. I do not think patient requires hospitalization. Patient has hydroxyzine to take at home as I suspect a lot of her discomfort is anxiety and stress related. She is agreeable with this. Will be discharged home. Cares to follow-up with her primary care doctor for further cardiac evaluation outpatient. Lab Data Attestation: I reviewed the patient's lab results. Labs: Laboratory Results - last 24 hr 01/31/22 01/31/22 01/31/22 02:45 02:45 04:45 WBC 7.3 RBC 3.92 L Hgb 12.4 Hct 36.0 L MCV 91.8 MCH 31.6 MCHC 34.4 RDW Std Deviation 39.8 RDW Coeff of Krish 11.9 Plt Count 203 MPV 9.7 Immature Gran % (Auto) 0.100 Neut % (Auto) 48.9 Lymph % (Auto) 40.6 [place] % (Auto) 8.3 Eos % (Auto) 1.4 Baso % (Auto) 0.7 Absolute Neuts (auto) 3.6 Absolute Lymphs (auto) 2.94 Nucleated RBC % 0 Sodium 140 Potassium 3.5 Chloride 108 H Carbon Dioxide 25.0 Anion Gap 7 BUN 13 Creatinine 0.77 Estim Creat Clear Calc 80.40 Est GFR (MDRD) Af Amer 102 Est GFR (MDRD) Non-Af 84 BUN/Creatinine Ratio 16.8 Glucose 86 Calcium 8.8 Troponin I High Sens 6 8 Radiography Chest X-Ray - ED: 1 View, Read by ED Physician, Read by Radiologist and No Acute Disease Diagnostic Testing: Clinical Impression(s) from Imaging Studies Chest X-Ray 01/31/22 02:59 IMPRESSION: Normal x-ray examination of the chest. Electronically Signed: Cabrera Dumont MD at 3:28 EDT Reading Location ID and State: [facility] / [place] Tel , Service support , Rhythm Strip Rhythm Strip: Sinus Rhythm Rate: 71 Ectopy: PAC(s) EKG Initial EKG: Attestation: I personally reviewed and interpreted this EKG as follows: Interpretation: Sinus Rhythm Comments: Normal sinus rhythm at a rate of 71 with PACs Normal axis Normal intervals Normal ST segments Discharge Plan Triage Chief Complaint: Chest Pain ED Provider: Ignacia Mazariegos Dx/Rx/DC Orders Clinical Impression: Heart palpitations, Chest discomfort Instructions: ED Chest Pain, Uncertain Cause Prescriptions: No Action loratadine 10 mg Tablet 10 mg PO DAILY valacyclovir [Valtrex] 500 mg Tablet 500 mg PO DAILY budesonide-formoterol [Symbicort] 160-4.5 mcg/actuation Hfa Aerosol Inhaler 1 inh INHALATION DAILY cholecalciferol (vitamin D3) [Vitamin D3] 25 mcg (1,000 unit) Tablet 1,000 unit PO DAILY sertraline [Zoloft] 100 mg tablet 150 mg PO DAILY 30 Days Qty: 45 1RF vitamin G19-acnjc acid 1-0.8 mg Tablet PO DAILY niacin 50 mg Tablet PO DAILY trazodone 50 mg tablet 50 mg PO QHS PRN (Reason: Nausea) Qty: 90 1RF lamotrigine 200 mg tablet 200 mg PO DAILY Qty: 90 1RF fluticasone propionate 50 mcg/actuation spray,suspension 1 spray intranasal BID Qty: 16 2RF Rx Instructions: administer into each nostril buspirone 10 mg tablet 20 mg PO BID Qty: 360 1RF Primary Care Provider: Shelli Franco Referrals: Shelli Franco MD [Primary Care Provider] - Activity Restrictions/Additional Instructions: No signs of a heart attack today. No abnormal findings to suggest the cause of your chest discomfort. Please take your hydroxyzine as prescribed at home to see if this helps. Disposition Disposition: Home, Self Care
[2022-01-31 06:15] VITALS: BP 99/68; PULSE 81; RESP 17; O2SAT 95
== END 2022-01-31 06:16 | disposition home or self-care (01) ==
PROVIDERS: Emergency Provider Emergency Medicine; PCP Internal Medicine; Visit Provider Emergency Medicine
DX: R07.89 Other chest pain (principal); E11.40 Type 2 diabetes mellitus with diabetic neuropathy, unspecified; I10 Essential (primary) hypertension; F41.9 Anxiety disorder, unspecified; R00.2 Palpitations; Z59.86 Financial insecurity; F32.A Depression, unspecified
CPT/HCPCS: 71045; 80048; 84484; 85025; 93005; 99285; A4216

== ENCOUNTER 2022-04-23 08:00 | Outpatient (RCR) | payer MEDICAID, SELFPAY ==
--- NOTE | 2022-04-23 09:00 | BH.SGPN.GN ---
Behaviors/Verbalizations/Mental Status: []Pt alert and oriented, neatly dressed and groomed. Eye contact good. Motor activity appropriate. Speech WNL. Mood euthymic, affect full. Thoughts linear, logical, no signs of hallucinations or delusions. Reviewed pt's symptom tracker, no risk factors noted for 04/23/22. Denies any active SI. Client Response/Progress/Benefit: [] Pt responded well to session, attentive and providing support to peers. Pt previously participated in IOP tx almost a year ago and pt shared she is returning because she does not want to slip back into old habits. Pt stated winter is always challenging for pt as pt typically isolates and this worsens her depression. Pt stated IOP helped her manage her emotions and gain healthy supports last time, so pt is hopeful this will happen again. Pt shared she has a lot of ongoing drama in her life and her brent has been the biggest motivator and support throughout this season of her life. Pt appeared to benefit from reflecting on her goals for IOP. Will continue IOP tx to promote use of healthy coping skills, reduce symptoms, and improve daily functioning. Narrative Note: []
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
[2022-04-23 12:12] VITALS: BP 136/82; PULSE 83
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
--- NOTE | 2022-04-23 12:51 | BH.DR.ITP ---
Initial Treatment Plan Patient Information Visit Information: ADMISSION DATE: EXPECTED LOS: 4-6 weeks Problems/Symptoms Problem #1:: Mood instability Symptom:: Hopelessness, worthlessness, low motivation, isolation, low energy, guilt, passive thoughts of Problem #2:: Worry, rumination, panic attacks, flashbacks, avoidance, reexperiencing
--- NOTE | 2022-04-25 09:00 | BH.SGPN.GN ---
Behaviors/Verbalizations/Mental Status: []Eye contact fair to good, casually dressed, motor activity appropriate, speech normal rate and tone, mood euthymic and anxious, congruent affect, thoughts linear and intact, no evidence of delusions or hallucinations. Reviewed pt's symptom tracker, reports of suicidal ideation within pt baseline and pt denies any active plan, or intent as of this date 04/25/22. Future oriented. Client Response/Progress/Benefit: []Pt responded well to session, attentive and willing to process with group. Pt reports feeling optimistic this morning. Pt did well to identify current mental health wins which included using emotion regulation skills of painting and listening to mandaen music when feeling stressed. Pt shared an additional win as reaching out to her personal injury attorney terms of her divorce agreement. Shared this is an ongoing stressor for her and that she is actively working on practicing patience and perspective challenging with regard to this stress. Appeared to benefit from group?discussion and supportive environment. Recommended continued IOP tx to continue to improve consistency of healthy skill application, promote mood stability and use of healthy stress management skills, as well as prevent decompensation. Narrative Note: []
--- NOTE | 2022-04-25 10:10 | BH.SGPN.GN ---
Behaviors/Verbalizations/Mental Status: []Client alert and oriented, casually dressed and groomed. Eye contact good. Motor activity appropriate. Speech within normal limits. Affect congruent, mood euthymic. Thoughts linear, logical, no signs of hallucinations or delusions Client Response/Progress/Benefit: []Pt engaged participant AEB providing contributions throughout group discussion and taking notes. Pt appeared to be attentive during psychoeducation about acceptance. Pt stated she believes acceptance is important to being able to move forward from difficult situations. Pt worked with group to identify common barriers to acceptance to include: fear of relapse, anxious thoughts, fear of stigma, and fear of being vulnerable. Pt worked with small group to identify benefits of acceptance. Pt seemed to benefit from increased awareness of the benefits of being able to accept things out of her control. Pt to continue IOP to continue challenging distorted thoughts, increase use of healthy coping skills, and prevent decompensation. Narrative Note: []
--- NOTE | 2022-04-25 11:10 | BH.SGPN.GN ---
Behaviors/Verbalizations/Mental Status: []Pt alert and oriented, neatly dressed and groomed. Eye contact good. Motor activity appropriate. Speech within normal limits. Affect congruent, mood euthymic. Thoughts linear, logical, no signs of hallucinations or delusions. Client Response/Progress/Benefit: []Pt responded well to session, engaged and providing examples. Pt engaged as group continued discussion on acceptance and how lack of acceptance can impact mental health. Pt and peers identified what makes acceptance challenging and pt completed a self-reflection exercise on what is hard to accept in pt's life. Pt shared it is hard to accept that her diet and lifestyle needs changed or pt will continue to have a poor quality of life. Pt also identified how further lack of acceptance could lead to more harm for pt including: lack of sleep, worsening health issues, and more depression Group identified strategies to increase acceptance and pt selected practicing willingness not willfulness to help pt increase acceptance. Pt appeared to benefit from gaining insight and strategies to increase acceptance. Pt will continue IOP tx to promote mood stability, increase the use of healthy coping skills, and improve daily functioning. Narrative Note: []
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
--- NOTE | 2022-04-28 10:10 | BH.SGPN.GN ---
Behaviors/Verbalizations/Mental Status: [] Eye contact is good. Motor activity is appropriate. Appearance is casual. Speech is Appropriate. Mood is euthymic. Affect is congruent. Thoughts are linear and logical. No evidence of psychosis. Client Response/Progress/Benefit: [] Client was an active participant during interactive group discussions. Client reporting with identifying with importance of group topic. Attentive during psychoeducation on the six types of boundaries (physical, emotional, intellectual, sexual, time, and material) AEB note-taking. Client along with peers contributed to interactive discussion on defining what a boundary is in mental health. Group identified challenges to setting boundaries which included; fear of other's response, not knowing how to set a boundary, fear of rejection, fear of disappointing the other person, historic patterns, etc. Group identified the benefits to setting boundaries such as to help maintain identity, increased control, minimize negative influences, and increased confidence . Group and client discussed the mental health benefits to establishing boundaries at work, school, and home. Client benefited from increased awareness and insight on the importance/benefit to setting health boundaries. Will continue in IOP to increase overall functioning and increase skills to combat depression. Narrative Note: []
--- NOTE | 2022-04-28 11:15 | BH.SGPN.GN ---
Behaviors/Verbalizations/Mental Status: [] Client alert and oriented, casually dressed and appropriately groomed. Eye contact good. Motor activity WNL. Speech within normal limits. Affect congruent, mood euthymic. Thoughts linear and intact. no signs of delusions or hallucinations. Client Response/Progress/Benefit: [] Client responded well to session AEB listening attentively to peers, providing input, as well as taking notes throughout. Client contributed throughout psychoeducation on different boundary setting styles with reporting connecting most with flexible style of boundary setting. Participated in group discussion brainstorming various strategies for improving healthy boundary setting. Client reports wanting to begin using skill of practicing self reflection on a more consistent basis to ensure that she is not just looking from one point of view. Seemed to benefit from increased awareness of how different boundary styles can impact mental health. Will continue IOP tx to increase consistent application of skills, increase self-care, and prevent decompensation. Narrative Note: []
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
--- NOTE | 2022-04-30 11:35 | BH.MTP_ITS ---
Master Treatment Plan - Patient Information Program Physician:: Lora Kang MD Primary Therapist:: David Foote [facility] - Psychiatric Diagnoses Psychiatric Diagnoses:: 1. Bipolar 2 disorder. 2. PTSD Diagnosis Code(s):: f31.81 - Estimated LOS Estimated LOS (in weeks):: 6 Problem/Goal #1 - Problem/Goal #1 Stated Goal:: Client will increase mood stability and reduce depression due to Bipolar II through Intensive Outpatient Services AEB by self-report and maintenance or reduction of DSM-5 outcome scores on the depression and sleep disruption domains. Description of Barriers: minimizes symptoms, current legal issues (divorce), lack of finances, transportation barriers, loneliness, Functional Impact: Significant isolation and avoidance, not completed daily tasks, loneliness, and lack of socialization. Goal Relevant Strengths/Supports: Outgoing, brent, insight - Objectives Objective #1 Stated Objective: Client will identify opportunities for social interaction in the area and develop plan to increase social activities to at least one additional every 2 weeks. Interventions: Through individual and group counseling will help client explore activities enjoys engaging in and help connect to those activities. Discharge Criteria: Will have developed a plan to increase social interaction and decrease isolation Target Date: 06/04/22 Review Date: 05/21/22 Objective #2 Stated Objective: Client will identify and replace 2-3 negative thinking patter ns that reinforce depressive symptoms, isolation, avoidance, and negative self- talk Interventions: Through individual and group counseling will assist client in recognizing triggers for increased self-deprecating and depressive thought patterns. Therapist will help client explore connection between thoughts, feelings, and actions and help client reframe depressive thought patterns. Discharge Criteria: Able to identify and implement skills to address 2-3 negative thinking patterns that reinforce depression. Target Date: 06/04/22 Review Date: 05/21/22 Problem/Goal #2 - Problem/Goal #2 Stated Goal:: Stabilize anxiety level while increasing ability to function on a daily basis AEB self-report and reduction of scores on the Anxiety domain of the DSM-5 scales. Description of Barriers: minimizes symptoms, current legal issues (divorce), lack of finances, transportation barriers, loneliness, Functional Impact: Significant isolation and avoidance, not completed daily tasks, rumination, guilt, and lack of socialization. Goal Relevant Strengths/Supports: Outgoing, brent, insight - Objectives Objective #1 Stated Objective: Client will identify 2-3 cognitive distortions that lead to rumination and learn 2-3 ways to manage these thoughts to better manage anxiety as shown by reduced DSM-5 scores for anxiety. Interventions: Through individual and group counseling will provide education on the most common cognitive distortions and teach client the connection between thoughts, emotions, and feelings. Therapist will assist client in identifying, challenging, and replacing dysfunctional thoughts with positive, more realistic thoughts. Discharge Criteria: Identify 2-3 commonly used cognitive distortions that are impacting her anxiety/ruminations and 2-3 strategies to manage these distortions. Target Date: 06/04/22 Review Date: 05/21/22
--- NOTE | 2022-04-30 12:54 | BH.MDN_ITS ---
Multi-Disciplinary Note - Note 45-min Individual Time Started:: 09:30 Date: 04/30/22 Purpose of session/treatment goals addressed:: Used the session to obtain history, discuss progress in IOP and to develop a treatment plan. Eye Contact:: Good Motor Activity:: Appropriate Appearance:: Casual Speech:: Appropriate Mood:: Euthymic Affect:: Full Thoughts:: Linear, Logical, No evidence of hallucinations/delusions noted Staff Interventions:: rapport building, treatment planning, goal setting Client Response:: Pt states that IOP helps me a lot. Pt reports that her scores on the questionnaires don't accurately reflect how she is struggling with her mental health. Shared that she isolates for majority of the day due to lack of energy, motivation, finances, and transportation. I need to socialize however reports lack of motivation to organize and follow through with socializing opportunities. 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 Isolative behaviors and ruminations regarding her ex , her daughter, current legal issues (divorce), and the previous 2 years. She is completing self-care which is Arts and crafts as well as bible study. Identified obstacles and attempted to utilize motivational interviewing to set small goasl. Pt agreeable to having a goal today to wash her dishes for 5 minutes today. Risks/Concerns:: no risks or concerns noted. Progress Toward Goals/Plan:: Limited progress noted as she continues to struggle with daily functioning due to mental health. Appears to be minimizing her symptoms in the group settings for unknown reasons, however clearly is isolating significantly and due to her depression, lack of motivation, lack of energy, and loneliness she is not following through with daily tasks. Her brent appears to be her biggest support. When we began to talk about ways to increase socialization she states this all seems so overwhelming. Understands that socialization will be beneficial however depression and lack of energy are too big of obstacles at this moment. Will continue in IOP to prevent decompensation, increase socialization, provide support, and improve functioning. Time Stopped:: 10:15
--- NOTE | 2022-05-02 09:10 | BH.SGPN.GN ---
Behaviors/Verbalizations/Mental Status: [] Eye contact is good. Motor activity is appropriate. Appearance is casual. Speech is Appropriate. Mood is euthymic. Affect is full. Thoughts are linear and logical. No evidence of psychosis. Reviewed daily check in sheet and no reports of suicidal ideations or intent. Client Response/Progress/Benefit: [] Pt was an active participant in group discussion. Attentive. Daily symptom tracker notes 04/10 for depression, anxiety, and irritability. States that she had a huge win since last session. Shared with the group her lack of energy and motivation due to her depression sharing how this impacts her daily life. Struggled to complete household tasks such as laundry and cleaning. Walks by pile of dishes daily and cannot seem to motivate herself to complete these tasks. Also spends great deal of time ruminating. She followed through with goal to clean dishes for 5 minutes which motivated her to clean for longer than 5 minutes and then complete her laundry. She is proud of herself. Benefited from group support, encouragment, and feedback. Will continue in IOP to maintain gains, prevent decompensation, and increase healthy coping skills. Narrative Note: []
--- NOTE | 2022-05-02 10:15 | BH.SGPN.GN ---
Behaviors/Verbalizations/Mental Status: []pt alert and oriented, casually dressed and groomed. Eye contact good. Motor activity appropriate. Speech within normal limits. Affect congruent, mood euthymic. Thoughts linear, logical, no signs of hallucinations or delusions.? Client Response/Progress/Benefit: []Pt responded well to session AEB contributing to discussion, taking notes, and listening attentively to others. Group discussed the benefits of managed anger and anger as a secondary emotion. Pt shared perspective on negatives from acting out in anger as damaged relationships and physical exhaustion.? Pt completed worksheet on anger triggers and personal warning signs of anger. Pt identified their biggest triggers as experiencing ?gaslighting? and when her feelings are disregarded.?Appeared to benefit from increased knowledge of the anger cycle as well as personal triggers. Will continue IOP tx to prevent decompensation, improve distress tolerance skills, and improve daily functioning. ? Narrative Note: []
--- NOTE | 2022-05-02 11:10 | BH.SGPN.GN ---
Behaviors/Verbalizations/Mental Status: []Client alert and oriented, casually dressed and groomed. Eye contact good. Motor activity appropriate. Speech within normal limits. Affect congruent, mood euthymic. Thoughts linear, logical, no signs of hallucinations or delusions. Client Response/Progress/Benefit: []Pt was engaged throughout AEB contributing to group discussion and self-reflection. Group finished processing cues to anger worksheet. Pt contributed as group brainstormed healthy coping skills for better managing anger which included: music, walking/exercise, changing the environment, communicating with supports, and journaling. Pt reported she would like to work on skill of self-reflection to help her manage anger responses. Pt appeared to benefit from identifying different techniques to manage anger as well as gaining awareness of potential consequences of unmanaged anger. Will continue IOP tx to increase consistent use of skills, increase confidence, and prevent decompensation.
--- NOTE | 2022-05-05 09:05 | BH.SGPN.GN ---
Behaviors/Verbalizations/Mental Status: [] Eye contact is good. Motor activity is appropriate. Appearance is casual. Speech is Appropriate. Mood is euthymic. Affect is full. Thoughts are linear and logical. No evidence of psychosis. Reviewed daily check in sheet and no reports of suicidal ideations or intent. Client Response/Progress/Benefit: [] Pt was an active participant in group discussion. Attentive. Daily symptom tracker notes 04/10 for anxiety and irritability. Mental health wins include meeting new support. Shared that she met a new friend and discussed how this social outlet will be beneficial for her mental health as well as spiritually. Support attends the same jainism and can help with transportation to jainism. [place] and socializing are a very important part of her life and without transportation both of these have been lacking. Managing her emotions pretty well and notes that her stressors continue to be rumination regarding her ex and divorce proceedings. Benefited from group support, encouragement, and feedback. Will continue in IOP to prevent decompensation and improve functioning. Narrative Note: []
--- NOTE | 2022-05-05 10:20 | BH.SGPN.GN ---
Behaviors/Verbalizations/Mental Status: []Client alert and oriented, casually dressed and groomed. Eye contact good. Motor activity appropriate. Speech within normal limits. Affect congruent, mood euthymic. Thoughts linear, logical, no signs of hallucinations or delusions. Client Response/Progress/Benefit: []Client receptive to session AEB providing input, listening attentively to others, and taking notes. Worked with group to brainstorm the positive and negative aspects of stress on physical and mental health. Group did well to identify the benefits of stress as well as the impact of distress on performance, relationships, and mental health. Client identified their personal top stressors as: legal issues, finances, and physical pain. Client reports when the stress overflows client reacts by isolation, physical pain increases, and loss of motivation. Client seemed to benefit from increased awareness of current stressors and impact stress has on mental health. Recommended to continue IOP tx to stabilize moods, continue to promote consistent self-care and healthy conflict resolution, and prevent decompensation. Narrative Note: []
--- NOTE | 2022-05-05 11:20 | BH.SGPN.GN ---
Behaviors/Verbalizations/Mental Status: []Pt alert and oriented, casually dressed and groomed. Eye contact good. Motor activity appropriate. Speech within normal limits. Affect congruent, mood euthymic. Thoughts linear, logical, no signs of hallucinations or delusions. Client Response/Progress/Benefit: []Pt engaged participant AEB listening attentively to others and contributing to discussion. Attentive during psychoeducation on the 4 A's of Coping with Stress (Avoid, Alter, Adapt, Accept). Participated in experiential activity in which group members had to utilize stress management skills in the moment. Pt was encouraging others and providing positive feedback. Pt engaged in review of the 4 A?s and picked wanting to work on adapting her mindset regarding her physical health and focusing more on what is in her control in the situation by going slower and practicing self-compassion/not comparing to others. Benefited from processing in the moment stress management strategies and identifying new ways to cope with stress. Will continue in IOP tx to prevent decompensation, increase healthy coping skills, and improve healthy communication and boundary setting. Narrative Note: []
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
--- NOTE | 2022-05-06 10:05 | BH.SGPN.GN ---
Behaviors/Verbalizations/Mental Status: [] Client alert and oriented, neatly dressed and groomed. Eye contact good. Motor activity appropriate. Speech within normal limits. Affect congruent, mood euthymic. Thoughts linear, logical, no signs of hallucinations or delusions. Client Response/Progress/Benefit: [] Client was an active participant in group discussions. Attentive during psychoeducation on 4 types of conflict styles (Competing, Collaborating, Avoiding, and Accommodating). Worked with group to define conflict and identify how conflict is helpful. With peers identified barriers to addressing or managing conflict which included: wanting to avoid difficult feelings/emotions, lack of communication skills, and cognitive distortions. Client believes they use the cooperative style the most. Client shared that with implementing this style, they have felt less guilt and shame and has strengthened their positive relationships. Benefited from group due to increase insight and awareness of benefits to conflict, conflict styles, and obstacles to managing conflict. Will continue in IOP to increase overall functioning, increase emotional regulation, and utilize learned coping skills. Narrative Note: []
--- NOTE | 2022-05-06 11:15 | BH.SGPN.GN ---
Behaviors/Verbalizations/Mental Status: [ ] Client alert and oriented, neatly dressed and groomed. Eye contact good. Motor activity appropriate. Speech within normal limits. Affect congruent, mood euthymic. Thoughts linear, logical, no signs of hallucinations or delusions. Client Response/Progress/Benefit: [] Client engaged in session AEB contributing to discussion and engaging in activity. Client did well to review current conflict style and its impact on mental health. Attentive during discussion on strategies for more effectively managing conflict in personal life. Client participated in activity with being assertive with group memebers. Client given handout on fair fighting rules. Client indicated that she was going to work on taking a time out if things get too heated and not push others to deal with conflict. Appeared to benefit from gaining strategies to help client better manage conflict. Will continue IOP tx to reduce negative thinking patterns, increase overall functioning, and prevent decmpensation. Narrative Note: []
== END 2022-05-06 23:59 ==
LOC: BHIOP 08:00
PROVIDERS: PCP Internal Medicine; Visit Provider Psychiatry & Neurology Psychiatry
DX: F31.81 Bipolar II disorder (principal); F43.10 Post-traumatic stress disorder, unspecified; Z79.899 Other long term (current) drug therapy; F10.91 Alcohol use, unspecified, in remission; G89.29 Other chronic pain; M54.9 Dorsalgia, unspecified; M54.2 Cervicalgia; G47.33 Obstructive sleep apnea (adult) (pediatric)
CPT/HCPCS: 90792; H2012; H2020; S9480; T1002; 90834

== ENCOUNTER 2022-05-07 07:33 | Outpatient (RCR) | payer MEDICAID, SELFPAY ==
[2022-05-07 00:49] VITALS: BP 136/82; PULSE 83
--- NOTE | 2022-05-08 10:10 | BH.SGPN.GN ---
Behaviors/Verbalizations/Mental Status: []Eye contact is good. Motor activity is appropriate. Appearance is casual. Speech is Appropriate. Mood is euthymic. Affect is congruent. Thoughts are linear and logical. No evidence of psychosis. Client Response/Progress/Benefit: []Pt was an active participant in group discussions and activities. Attentive during psychoeducation. Pt engaged during interactive discussion in which the group defined self-care and discussed its benefits. ?Worked with peers in a small group to identify myths related to self-care which included; Self-care is expensive, self-care is selfish, not everyone deserves self-care, self-care means a person is weak, and self-care takes up too much time. Pt participated in small groups where they worked to bust these self-care myths. Pt did well to relate experiential activity to the topic of self-care and its benefit to mental health. Benefited from increased awareness of self-care, its benefits, and the consequences of not utilizing self-care strategies. Pt made a lot of connections in group sharing that she has experienced life without self-care and she does not want to go back. Will continue in IOP to improve mood stability, reduce isolation, and improve daily functioning. ?? Narrative Note: []
--- NOTE | 2022-05-08 10:29 | BH.MDN ---
Multi-Disciplinary Note - Note 45-min Individual Time Started:: 09:15 Date: 05/08/22 Purpose of session/treatment goals addressed:: Reviewed progress and current symptoms. Addressed treatment plan goal 1. Eye Contact:: Good Motor Activity:: Appropriate Appearance:: Casual Speech:: Appropriate Mood:: Anxious Affect:: Congruent Thoughts:: Linear, Logical, No evidence of hallucinations/delusions noted Staff Interventions:: psychoeducation on: - Communication, social skills,, rapport building Client Response:: Pt started the session with venting about current psychosocial stressors which mainly involved her ex-, current legal issues over the shared house, and her adult daughter. The specifics of these stressors appears to be very complex and confusing with frequent interactions with supervisor winter and court hearings. She verbalizes that she has not engaged or interacted directly with her in 3 months which she views as a win. In discussing her stressors and her depression we began to discuss her struggles with making and keeping friends. I never had a friend in my life. Pt able to identify difficulty with social skills and cues. States that others have stated that she is pushy and opinionated. Pt also states that I don't have a filter. Insight on this has impacted her relationships. Lack of friendships and social supports leads to negative thinking patterns which ultimately impacts her depression. Developed a few strategies and identified skills to address lack of filter, being pushy, and feeling need to fix everything. Challenged commonly held beliefs regarding effective communication. Risks/Concerns:: no risks or concerns noted. Progress Toward Goals/Plan:: Progress noted since last session per pt report. Utilizing opposite action to complete household tasks such as laundry and dishes. Continues to struggle however improvement. Attempting to increase her social support reporting that she met a new friend this week and plans to go to [employer] again Thursday which is increasing social interactions. Pt has struggled to maintain relationships which impacts her depression. I don't know what a healthy relationship is. Poor social skills and unable to read social cues per her report. Some insight that her lack of a filter, over-talking, and urge to solve other's problems impact her ability to maintain long-term friendships. This appears to be a significant trigger to her depression and overall self-esteem. Will continue in IOP to prevent decompensation, stabilize mood, and increase healthy coping. Time Stopped:: 10:00
--- NOTE | 2022-05-12 09:05 | BH.SGPN.GN ---
Behaviors/Verbalizations/Mental Status: []Eye contact good, casually dressed, motor activity appropriate, speech normal rate and tone, mood dysthymic and anxious, congruent affect, thoughts linear and intact, no evidence of delusions or hallucinations. Reviewed pt's symptom tracker, suicidal ideation within baseline, pt denies plan, or intent as of this date. Future oriented. Client Response/Progress/Benefit: []Pt responded well to session, attentive and willing to process with group. Pt reports feeling exhausted this morning as she has been feeling under the weather and therefore did not get much sleep. Pt encouraged to take care of her physical self-care needs and given the option to go home to rest and recoup. However, pt declined and shared that being in group helps to improve her mood and would prevent her from falling into unhealthy thinking patterns. Shared that she will take breaks as needed and will leave if she feels too unwell. Pt did well to identify current mental health wins from the weekend, which included making homemade Valencia?s cards for loved ones, expressing that crafting helps to improve her mood and provides a sense of overall monique for her. Additional win noted as providing support for her daughter who continues to struggle with her own mental health and interpersonal relationships. Reports continuing to practice maintaining healthy boundaries to prevent her daughter?s stressors from becoming overwhelming for her. Appeared to benefit from group?discussion and supportive environment. Recommended continued IOP tx to continue to improve healthy skills, promote mood stability, as well as prevent decompensation. Narrative Note: []
--- NOTE | 2022-05-12 10:10 | BH.SGPN.GN ---
Behaviors/Verbalizations/Mental Status: []Client alert and oriented, neatly dressed and groomed. Eye contact normal. Motor activity appropriate. Speech within normal limits. Affect congruent, mood euthymic. Thoughts linear, logical, no signs of hallucinations or delusions. Client Response/Progress/Benefit: [] Client was an active participant AEB contributing to discussion, taking notes, and engaging in group activity. Connected with the topic of pitfalls and listened to group discussion on barriers that prevent from choosing a healthier path to mental wellness. Group worked together to identify examples of personal pitfalls which included; being in denial, emotional outbursts, and procrastination. Client identified anxiety has been a constant pitfall for her. Client benefited from group as client learned to better identify potential barriers to improving mental health symptoms. Client will continue IOP tx to increase healthy coping skills, minimizing negative thinking patterns, and improve daily functioning. Narrative Note: []
--- NOTE | 2022-05-12 11:10 | BH.SGPN.GN ---
Behaviors/Verbalizations/Mental Status: [] Client alert and oriented, casually dressed and groomed. Eye contact good. Motor activity appropriate. Speech within normal limits. Affect congruent, mood euthymic Thoughts linear, logical, no signs of hallucinations or delusions. Client Response/Progress/Benefit: [] Client receptive of session, engaged throughout AEB actively listening and contributing to discussion, as well as taking notes. Client participated in the experiential activity and did well to communicate ideas with peers and manage emotions. Client and group processed how the emotions and perspective of the group impacted the activity. Group worked together to identify different coping skills to help manage pitfalls. Client identified pitfalls they struggle with and shared wanting to work on strategies of keeping track of progress towards goals and getting consistent treatment to help manage symptoms. Benefited from identifying personal pitfalls and strategies to overcome these pitfalls. Will continue IOP tx to increase overall functioning, gain healthy supports and challenge negative thinking. Narrative Note: []
--- NOTE | 2022-05-19 09:00 | BH.SGPN.GN ---
Behaviors/Verbalizations/Mental Status: [] Eye contact is good. Motor activity is appropriate. Appearance is casual. Speech is Appropriate. Mood is euthymic. Affect is full. Thoughts are linear and logical. No evidence of psychosis. Reviewed daily check in sheet and no reports of suicidal ideations or intent. Client Response/Progress/Benefit: [] Pt was an active participant in group discussion. Attentive. Shared several psychosocial stressors over the weekend involving her ex and her daughter which has resulted in her daughter temporarily living with her. This has decreased lonlieness and helped with her purpose and motivation, however per pt her daughter is struggling with mental health and financial issues as well. Pt reports that she pushed herself physically to far this weekend which has resulted in back pain which has impacted her mood and sleep. Anxious that this will continue throughout the week. Benefited from group support, encouragement, and feedback. Will continue in IOP to prevent decompensation, provide support, and stabilize mood. Narrative Note: []
--- NOTE | 2022-05-19 10:00 | BH.SGPN.GN ---
Behaviors/Verbalizations/Mental Status: []Eye contact is good. Motor activity is appropriate. Appearance is casual. Speech is Appropriate. Mood is anxious and euthymic. Affect is congruent. Thoughts are linear and logical. No evidence of psychosis. Client Response/Progress/Benefit: []Pt was an active participant in group discussions and experiential activity. Attentive during psychoeducation on resilience. Participated in interactive discussion with peers on the definition of resilience and where it comes from. Shared beliefs that resilience is developed more with each adversity you overcome. Group identified that resiliency can be impacted by; past experiences, learned behaviors, and limited or toxic supports. Pt shared resilience has been difficult for her during times in which she has had a negative or fixed mindset. Group also worked together to identify the benefits of being resilient and how it is related to mental health. Able to relate experiential activity of group juggle to topics of resilience. Worked well with peers in small group in which they identified factors that contribute to resilience. Benefited from increased awareness of resilience and the factors that contribute to building resilience. Will continue in IOP to prevent decompensation, increase healthy coping and mood stability, as well as continue to improve functioning. Narrative Note: []
--- NOTE | 2022-05-19 10:52 | PCM.BH.PN ---
Progress Note Progress Note: History of Present Illness/Interim History: The patient is a 47-year-old , female with a history of bipolar 2 disorder and PTSD who is seen in follow-up at the [facility] behavioral health IOP program. I last saw the patient 1 month ago. No medication changes were made then as her Zoloft had only been increased 1 week before. The patient has been consistent in attending the IOP program and has been engaged in the program and making some progress. She feels she is learning valuable skills to help with her emotion regulation. The patient states that she is feeling significantly better overall but at times she still has difficulty functioning at a high level. She is currently been stressed by the fact that her daughter was living with the patient's soon-to-be ex-. The patient states that recently she moved her daughter out of her the father's house and the daughter is now staying with the patient and the patient is happy about this. She feels her mood is more stable and has not had any recent anger outbursts. She has not had any crying episodes for several weeks. She denies now hopelessness or worthlessness. She denies passive thoughts of , suicidal ideation, plan for suicide, homicidal ideation, hallucinations or delusions. She has not had any panic attacks since I last saw her. She denies any alcohol use and remains sober from alcohol. The patient has not had any of her seizure episodes since I last saw her and she has not yet had the overnight EEG which she is supposed to schedule through her neurologist. Current Psychiatric Medications: [] Zoloft 150 mg p.o. daily (dose increased 5 weeks ago); BuSpar 10 mg p.o. in the morning; Lamictal 200 mg p.o. nightly; trazodone 50 mg p.o. nightly; Vistaril which she rarely uses now. Mental Status Examination: [] The patient is a 47-year-old female who is casually dressed and groomed with good hygiene and appears normal for stated age. She is ambulatory with a normal gait and has no psychomotor agitation or retardation. She is cooperative and pleasant during the interview. Eye contact is good and speech is normal rate and rhythm and fluent with no pressure. Mood is mildly depressed to euthymic. Affect is full and normal. Thought process is goal-directed and organized. Thought content: There is no evidence of passive thoughts of , suicidal ideation, plan for suicide, homicidal ideation, hallucinations, delusions or thoughts of self-harm. Patient is hopeful for situation with her daughter. Reality testing is intact. Intelligence is average. Judgment is intact. Insight is limited but some present. Impulsivity is high. Diagnoses: [] 1. Bipolar 2 disorder 2. Strong cluster B traits 3. PTSD 4. History of alcohol use disorder in remission 5. Chronic neck and back pain 6. Obstructive sleep apnea with CPAP use: Needs to be titrated soon. 7. Rule out seizure disorder: Seeing a neurologist Plan: [] The patient will continue the IOP program in behavioral health at [facility] as the structure, support, education and group therapy will hopefully prevent worsening of the patient's symptoms which could require hospitalization. She felt safe during the interview and if it anytime she does not feel safe she will let us know or go to the emergency room. The risks, options, possible complications and side effects of the medications were again discussed with the patient and she understands and accepts these. No medication changes were made today. The patient agrees to schedule her sleep study to titrate her CPAP and her EEG to finish the work-up on the possible seizures. She will continue to follow-up with her outpatient medical and psychiatric providers and I will see the patient in follow-up while she is in the IOP program.
--- NOTE | 2022-05-19 11:10 | BH.SGPN.GN ---
Behaviors/Verbalizations/Mental Status: []Pt alert and oriented, neatly dressed and groomed. Eye contact good. Motor activity appropriate. Speech within normal limits. Affect congruent, mood euthymic. Thoughts linear, logical, no signs of hallucinations or delusions Client Response/Progress/Benefit: []Pt responded well to session AEB completing the resilience worksheet provided. Pt participated in the discussion and worked cooperatively with group to identify strategies to enhance each of the components discussed. Pt reports belief they already use resilience trait of??avoiding seeing crises as insurmountable problems? as pt often relies on her brent and reminds herself of personal strengths.?Pt stated they would like to continue to develop resilience trait of ?making connections.? Pt seemed to benefit from discussing strategies for improving personal resilience and identifying resilience traits pt already possesses. Pt reports belief she is doing well in some areas, but she still struggles with building social support. Will continue IOP tx to improve daily functioning, improve emotional regulation skills, and reduce negative thinking patterns. ? Narrative Note: []
--- NOTE | 2022-05-21 10:14 | BH.SGPN.GN ---
Behaviors/Verbalizations/Mental Status: [] Client alert and oriented, neatly dressed and groomed. Eye contact good. Motor activity appropriate. Speech normal. Affect congruent, mood euthymic. Thoughts linear, logical, no signs of hallucinations or delusions. Client Response/Progress/Benefit: [] Client was an engaged participant AEB client listening attentively to others and participating throughout. Attentive during psychoeducation on communication styles. Assisted group with identifying barriers of effective communication which included: assuming, shutting down, dominating the conversation, and getting emotional. Client identified she most often uses assertive communication but found that sometimes she can offend people with how direct she is, causing strain in some relationships. Client reports being assertive impacts her positively by feeling like she can advocate for herself and get her needs met. Benefited from increased awareness of different communication barriers, styles, and the importance of communicating effectively to improve mental wellness. Will continue IOP tx to improve healthy thought patterns, increase self-awareness, and prevent decompensation. Narrative Note: []
--- NOTE | 2022-05-21 13:00 | BH.MDN_ITS ---
Multi-Disciplinary Note - Note 30-min Individual Time Started:: 11:30 Date: 05/21/22 Purpose of session/treatment goals addressed:: Reviewed current symptoms and progress in IOP. Follow-up on previous session on social skills, relationship- building skills, and social cues. Eye Contact:: Good Motor Activity:: Appropriate Appearance:: Casual Speech:: Appropriate Mood:: Depressed Affect:: Flat Thoughts:: Linear, Logical, No evidence of hallucinations/delusions noted Staff Interventions:: psychoeducation on: - communication, social, and relationship-building skills. Client Response:: Pt presents today reporting being tired and in pain. Reports back pain since this past weekend. Was ill last week and had several psycho- social changes occur. Pt's daughter was kicked out of her father's house and was forced to temporarily move in with pt. Great deal of moving over the weekend. According to pt her daughter is filing a protective order against her father. Daughter has no income, no insurance, limited support, and is unable to work. While having her daughter around has helped decreased loneliness and increased purpose there are also stressors. Overall pt's reports it has been a positive change. The ongoing legal issues and divorce from continues, however upcoming court dates this month are progress towards resolution. Pt has been practicing social skills discussed last session. IOP staff have noticed i mproved communication skills in group settings as well. Continued with education and role-playing of appropriate social and communication skills with the goal to improve and maintain friendships which will increase socialization and decreased depression. Risks/Concerns:: no risks or concerns noted. Progress Toward Goals/Plan:: Progress noted. Significant psychosocial changes this past week (Refer above) which had been both positive and negative to overall mental health. Consistent and engaged in IOP. Improved social skills noted with hopes that this will help patient maintain and increased healthy friendship and decreased loneliness. Depression, lack of motivation, and lack of energy continue to impact daily functioning and tasks, however improvement. Reports that she is gaining skills/strategies to manage her depression in group settings. Will continue in IOP to maintain gains, prevent decompensation, and increase healthy coping. Time Stopped:: 12:00
--- NOTE | 2022-05-21 14:00 | BH.MTP_ITS ---
Treatment Plan Review Date of Admission:: 04/23/22 Date of Treatment Plan Review:: 05/21/22 Admitting Diagnoses:: 1. Bipolar 2 disorder. 2. Ptsd Current Diagnoses:: 1. Bipolar 2 disorder f31.81. 2. PTSD Patient's Response to Treatment:: Consistent attendance. Engaged in group activities and discussions. Responds well to feedback. Status of Current Problems and Symptoms: According to DSM-5 outcomes scores pt has shown an overall 9% reduction in symptoms since admission. Scores have decreased 50% in the depression domain and 67% in the anxiety domain. Also reports a 33% improvement in memory. Reports a slight increase in the anger domain. Pt continues to reports several psychosocial stressors involving ongoing divorce/legal issues, financial stress, and back pain which impact progress and overall mood. Problem #2 Problem Name:: Mood Instability Status of Goals:: Obj1- Progress noted. Consistently attending uatsdin and has made social connections through this support. Pt's daughter moved in with her temporarily which has decreased loneliness and social interaction as well. Obj2- Therapist has identified struggles with social skills and communication which in the past have led to her never having a friends. Struggles with appropriate communication and her perception of this has reinforced her depression. We have been working on social skills, social cues, and effective communication. Team Recommendations:: Maintain current plan. Improvement noted and no significant decompensation. 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 Improvement noted on outcomes scores in the anxiety domain. Team Recommendations:: Maintain current plan.
--- NOTE | 2022-05-26 09:03 | BH.SGPN.GN ---
Behaviors/Verbalizations/Mental Status: []Eye contact good, casually dressed, motor activity appropriate, speech normal rate and tone, mood euthymic and agitated, congruent affect, thoughts linear and intact, no evidence of delusions or hallucinations. Reviewed pt's symptom tracker, pt denies suicidal ideation, plan, or intent as of this date. Future oriented. Client Response/Progress/Benefit: []Pt responded well to session, attentive and willing to process with group. Pt reports feeling ?optimistic? this morning noting that this is due to the progress she is seeing in her own improved functioning. Pt did well to identify wins, which included challenging herself to practice opposite action and clean her house over the weekend. Shared her daughter staying for the week gave her motivation to do so. Additional win identified as making progress in her ability to manage her emotions when communicating with her soon to be ex-. Discussed slowing down and using mindfulness to do so. Current stressor identified as her daughter having to put down the family dog and pt not being able to be present to say her goodbyes. Receptive of supportive feedback provided by the group. Progress noted in continuing to apply skills learned thus far in IOP group. Recommended continued IOP tx to continue to improve consistent use of healthy coping skills, promote mood stability, as well as prevent decompensation. Narrative Note: []
--- NOTE | 2022-05-26 10:10 | BH.SGPN.GN ---
Behaviors/Verbalizations/Mental Status: []Pt alert and oriented, casually dressed and groomed. Eye contact good. Motor activity appropriate. Speech within normal limits. Affect congruent, mood stressed. Thoughts linear, logical, no signs of hallucinations or delusions. Client Response/Progress/Benefit: []Pt was an engaged participant AEB providing input, listening to others, and taking notes. Participated in interactive group discussion on internal and external barriers to mental health progress. Pt described current reality using a hiking metaphor. Pt shared feeling like ?I?m constantly climbing this mountain and I?m only on the first peak.? Reported desired reality is still being on the hike, but is further along and ?can see how far I?ve come.? ?Pt?s strengths in current reality included seeking help and reminding herself of her resilience. Pt shared personal barriers to desired realty include: physical pain, actively engaging in unhealthy coping (eating sugar), and isolation. Benefited from increased awareness of current barriers to progress as well as current/desired realities. Pt to continue IOP to reduce isolation, increase social supports, and improve overall functioning. Narrative Note: []
--- NOTE | 2022-05-26 11:10 | BH.SGPN.GN ---
Behaviors/Verbalizations/Mental Status: []Pt alert and oriented, casually dressed and groomed. Eye contact good. Motor activity appropriate. Speech within normal limits. Affect congruent, mood anxious. Thoughts linear, logical, no signs of hallucinations or delusions. Client Response/Progress/Benefit: []Pt engaged during activity, encouraging peers and contributed as group brainstormed ideas on how to cope with internal barriers that keep pts stuck from moving towards goals. Able to identify barriers to desired reality. Identified barriers to current reality to include: addiction to sugar, financial instability, and physical health/chronic pain. Pt wants to work on overcoming the barrier of inappropriate guilt by using self-talk and positive affirmations. Benefited from group by identifying obstacles and solutions to desired reality.? Pt will continue IOP tx to continue use of healthy coping skills, focus on what's in her control, and prevent decompensation.
--- NOTE | 2022-05-28 09:00 | BH.SGPN.GN ---
Behaviors/Verbalizations/Mental Status: []Pt alert and oriented, casually dressed and groomed. Eye contact good. Motor activity appropriate. Speech within normal limits. Affect congruent, mood euthymic. Thoughts linear, logical, no signs of hallucinations or delusions. Reviewed pt?s symptom tracker, no risk for suicidal ideation, plan, or intent as of 05/28/22 Client Response/Progress/Benefit: [] Pt responded well to session, attentive and contributing to discussions. Pt reports feeling accomplished this morning as pt has kept up with her goal of doing housework more consistently and pt finished her application for community action. Pt is anxious about figuring out how she will pay her bills due to not being able to work. Pt's back has also been giving her more issue which adds to pt's inability to work. Pt reports feeling guilt, but pt is able to challenge her thoughts. Pt appeared to benefit from reflecting on what is in her control and how she can cope. Pt will continue IOP tx to promote mood stability, further improve functioning, and gain healthy support. Narrative Note: []
--- NOTE | 2022-05-28 10:15 | BH.SGPN.GN ---
Behaviors/Verbalizations/Mental Status: [] Eye contact is good. Motor activity is appropriate. Appearance is casual. Speech is Appropriate. Mood is euthymic. Affect is full. Thoughts are linear and logical. No evidence of psychosis. Client Response/Progress/Benefit: [] Pt participated at times during group discussion. This group was very heavy on psychoeducation and pt was attentive AEB by note-taking, providing input when appropriate, and asking questions. Participated in interactive discussion in which peers attempted to define and give examples of automatic negative thoughts and cognitive distortions. Therapist presented and reviewed ten common cognitive distortions (All or Nothing thinking, mental filter, jumping to conclusions, emotional reasoning, labeling, overgeneralization, disqualifying the positives, catastrophizing, shoulds, and personalization). Benefited from increased understanding of cognitive distortions and how they impact automatic negative thoughts. Will continue in IOP to maintain gains. Narrative Note: []
--- NOTE | 2022-05-28 14:33 | BH.MDN ---
Multi-Disciplinary Note - Note 30-min Individual Time Started:: 11:15 Date: 05/28/22 Purpose of session/treatment goals addressed:: Reviewed current symptoms and progress in [facility]. Addressed all treatment plan goals and objectives. Discharge planning. Eye Contact:: Good Motor Activity:: Appropriate Appearance:: Casual Speech:: Appropriate Mood:: Euthymic Affect:: Full Thoughts:: Linear, Logical, No evidence of hallucinations/delusions noted Staff Interventions:: discharge planning, reviewed DSM-5 Client Response:: Pt reports increased frustration and stress related to her back pain, inability to work due to medical issues, and financial struggles. Vented her frustrations. 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 We reviewed her last 5 weeks in [facility] as well as her DMS-5 outcomes. (refer to tx plan review for more information). According to self-report, outcomes, and pt's daily symptom trackers for the past few weeks she has shown overall improvement in depression, anxiety, and social skills. Increase confidence in her ability to manage emotions. Briefly reviewed progress. Identified warning signs and triggers to worsening mental health that led to exacerbation in 03/2022. It got real dark real quick when described her mental health in 03/2022. Risks/Concerns:: no risks or concerns noted. Progress Toward Goals/Plan:: Progress noted. Reviewed treatment plan. Completed goal 1 (obj 2) and goal 2 (obj 1). Limited progress on goal 1(obj 1) which involved engaging more in social activities. She has remained active in muslim however has not found new social outlets. Limited progress could have been due to unexpected psychosocial changes (daughter moving in with her). Overall improvement noted. Plan to discharge on 06/02/22. Plans to continue in [facility] weekly aftercare group as well as individual counseling and psychiatry. Time Stopped:: 11:45
--- NOTE | 2022-06-02 09:05 | BH.SGPN.GN ---
Behaviors/Verbalizations/Mental Status: [] Eye contact is good. Motor activity is appropriate. Appearance is casual. Speech is Appropriate. Mood is euthymic. Affect is full. Thoughts are linear and logical. No evidence of psychosis. Reviewed daily check in sheet and no reports of suicidal ideations or intent. Client Response/Progress/Benefit: [] Pt was an active participant in group discussion. Attentive. Shared with the group that today is her last day in [facility]. Briefly discussion her progress from being suicidal to functioning at a high level. Insight that she has been managing her stress and emotions despite several recent psychosocial stressors. Feels confident and optimistic regarding her mental health. She also identified increased supports in her life (Daughter, new friends) which have contributed to her recent stablity. Benefited from group support, encouragement, and feedback. Will be discharged from [facility] today. Narrative Note: []
--- NOTE | 2022-06-02 10:15 | BH.SGPN.GN ---
Behaviors/Verbalizations/Mental Status: []Client alert and oriented, casually dressed and groomed. Eye contact good. Motor activity appropriate. Speech within normal limits. Affect congruent, mood euthymic. Thoughts linear, logical, no signs of hallucinations or delusions. Client Response/Progress/Benefit: []Client responded well to session AEB sharing and listening attentively to others. Client participated in group discussion defining anxiety and common characteristics. Group discussed the impacts of anxiety, its benefits, as well as when it becomes unhealthy. Clinician provided psychoeducation on anxiety diagnoses and the anxiety triangle of physical symptoms, safety behaviors, and common anxious thoughts. Client identified her own physical sx to include stomach aches, sweating, and drop in sugar levels and safety behaviors as isolation, over preparing, and shutting down. Client appeared to benefit from increased knowledge of anxiety diagnoses and causes, as well as improved self-awareness of anxiety symptoms. Will d/c from IOP on this date and continue with individual outpatient providers to maintain gains and prevent decompensation. Narrative Note: []
--- NOTE | 2022-06-02 11:10 | BH.SGPN.GN ---
Behaviors/Verbalizations/Mental Status: []Pt alert and oriented, neatly dressed and groomed. Eye contact good. Motor activity appropriate. Speech within normal limits. Affect congruent, mood euthymic. Thoughts linear, logical, no signs of hallucinations or delusions. Client Response/Progress/Benefit: []Pt was an active participant in group discussion AEB? providing contributions throughout group and listening attentively to others. Pt able to connect how current safety behaviors are reinforcing anxiety. Attentive during psychoeducation on anxiety management skills. The group practiced gentle stretching and thought challenging during session. Engaged and attentive during group brainstorm of healthy anxiety reduction skills. Appeared to benefit from practicing in the moment coping skills and increasing repertoire of anxiety management skills. Pt selected wanting to work on using calming skills like deep breathing and stretching more consistently. Pt will discharge from IOP tx as pt no longer meets criteria for IOP level of care. ?? Narrative Note: []
--- NOTE | 2022-06-02 11:28 | BH.DS ---
Discharge Summary - Demographics Date of Admission:: 04/23/22 Discharge Date: 06/02/22 Presenting Problems at Admission:: Pt is a 46 year old female with hx of Bipolar 2 and PTSD. Hx of two previous psychiatric admission with most recent at [facility] in 05/2021. Referred to [facility] by her outpatient psychiatrist Dr. Arcos due to recent decompensation and need for support. Pt completed [facility] IOP and aftercare in 09/2021 and reports was functioning and coping well until the holidays when things got really concerning. Reports depressive episode with isolation, hopelessness, worthlessness, and passive thoughts of . Denies active suicidal ideations, plan, or intent. No hx of attempts. Reports survival ambivalence I didn't want to exist which has lessened in the past week. Limited benefit from traditional outpatient and medication. Struggling to complete daily ADLs and tasks (laundry, dishes, etc). Endorses increased appetite, low energy, low motivation, isolation, and anhedonia. Poor focus, concentration, and memory. Limited support and social interaction stating I need to be around people. Isolation. Pt reports depression worsens in the winter and she is fearful that she will continue to decompensate. Several psychosocial stressors which include financial, legal, housing, medical, and very conflicted divorce proceedings. Currently unemployed and unable to work due to medical and mental health. Denies HI or psychosis. Denies substance abuse. Family hx of schizophrenia and ADHD (son). Discharge Diagnoses:: 1. Bipolar 2 disorder. 2. Strong cluster B traits. 3. PTSD. 4. History of alcohol use disorder in remission Reason for Discharge:: No longer meets criteria for IOP level of care. - Treatment Progress During Treatment & Response: Consistent and engaged in IOP level of care. Progress noted. Reviewed treatment plan. Completed goal 1 (obj 2) and goal 2 (obj 1). Limited progress on goal 1(obj 1) which involved engaging more in social activities. She has remained active in zoroastrian however has not found new social outlets. Limited progress could have been due to unexpected psychosocial changes (daughter moving in with her). Overall improvement noted. 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 We reviewed her last 5 weeks in IOP as well as her DMS-5 outcomes. (refer to tx plan review for more information). According to self-report, outcomes, and pt's daily symptom trackers for the past few weeks she has shown overall improvement in depression, anxiety, and social skills. Increase confidence in her ability to manage emotions. Issues Still to be Addressed:: Depression, anxiety, psychosocial stressors impacting mood, communication/social skills, and stress-management skills. Would benefit from ongoing counseling to maintain gains and prevent decompensation. Discharge Recommendations/Instructions:: Recommended to follow up with outpatient therapist (Adeel at [facility]) and psychiatrist (Mode Guzman MD at [facility]). Pt is also going to participated in [facility] weekly aftercare group. Discharge Handout: Complete Discharge Handout with client on aftercare options and continuity of care.
--- NOTE | 2022-06-02 13:37 | BH.AFTERPLAN ---
Aftercare Plan - Demographics Treatment End Date:: 06/02/22 Psychiatrist:: Lora Flores Psychiatrist Office #:: [phone] [facility] Therapist:: David Foote Therapist Phone #:: [phone] - Plan Details Progress/Aftercare Plan Details:: Recommended to follow up with outpatient therapist (Adeel at [facility]) and psychiatrist (Mode Guzman MD at [facility]). Pt is also going to participated in [facility] weekly aftercare group with expected start in 2 weeks. Pt has a standing weekly appointment with her therapist and a scheduled appointment with her psychiatrist next month Strategies for Success:: Continue to follow up with aftercare plans (therapist, psychiatrist, aftercare). Encouraged pt to utilize internal and external coping skills learned in [facility] level of care. - Appointments Appointments/Referrals to Other Services:: refer above - Medications Home Medications: Home Medications loratadine 10 mg tablet 10 mg PO DAILY 09/27/20 lamotrigine 200 mg tablet 200 mg PO DAILY #90 tabs 03/11/21 trazodone 50 mg tablet 50 mg PO QHS PRN Nausea #90 tabs 03/11/21 valacyclovir 500 mg tablet (Valtrex) 500 mg PO DAILY 05/29/21 cholecalciferol (vitamin D3) 25 mcg (1,000 unit) tablet (Vitamin D3) 1,000 unit PO DAILY 06/12/21 sertraline 100 mg tablet (Zoloft) 150 mg PO DAILY 30 days #45 tabs 07/10/21 niacin 50 mg tablet mg PO DAILY 01/31/22 vitamin B12 1 mg-folic acid 0.8 mg tablet tab PO DAILY 01/31/22 buspirone 10 mg tablet 10 mg PO BREAKFAST 04/23/22 buspirone 10 mg tablet 20 mg PO QHS 04/23/22 budesonide-formoterol HFA 160 mcg-4.5 mcg/actuation aerosol inhaler (Symbicort) 1 inh inhalation DAILY #10.2 grams 05/07/22 fluticasone propionate 50 mcg/actuation nasal spray,suspension 1 spray intranasal BID #16 grams 05/07/22
== END 2022-06-02 12:04 | disposition home or self-care (01) ==
LOC: BHIOP 07:33
PROVIDERS: PCP Internal Medicine; Visit Provider Psychiatry & Neurology Psychiatry
DX: F31.81 Bipolar II disorder (principal); F43.10 Post-traumatic stress disorder, unspecified; F10.91 Alcohol use, unspecified, in remission; G89.29 Other chronic pain; M54.2 Cervicalgia; M54.9 Dorsalgia, unspecified; G47.33 Obstructive sleep apnea (adult) (pediatric); Z79.899 Other long term (current) drug therapy
CPT/HCPCS: 99214; H2012; H2020; S9480; 90832; 90834

== ENCOUNTER 2022-06-19 08:00 | Outpatient (RCR) | payer MEDICAID, SELFPAY ==
--- NOTE | 2022-06-19 14:00 | BH.COMM ---
Communication Note - Communication with Client Communication Note: Presented completed IOP and presents today to starting relapse prevention group which meets once weekly (1.5 hours) for 8 weeks. Case discussed with Dr. Kang with plan to admit with dx of F31.81
--- NOTE | 2022-06-19 14:00 | BH.SGPN.GN ---
Behaviors/Verbalizations/Mental Status: []Client alert and oriented, casual in appearance. Eye contact good. Motor activity appropriate. Speech within normal limits. Affect congruent. Mood euthymic. Thoughts linear, logical, no signs of hallucinations or delusions Client Response/Progress/Benefit: []Pt responded well to session AEB providing input throughout and listening attentively to others. Pt reported plans on meeting with outpatient counselor tomorrow and has a psychiatry appointment for next month. Reports taking medications as prescribed, though has had a few occasions in which she has forgotten. Pt identified several coping skills she has been using over the past week to continue to manage mental health sx, which included: reaching out to supports, healthy distraction, and positive affirmations. Pt connected with self-reflection discussion. Worked with group to identify the benefits of self-reflection. Appeared to benefit from identifying how to incorporate self-reflection into daily life. Pt completed aftercare specific self-reflection activity and indicated she has seen improvements in her communication with supports but would like to continue to focus on making improvements in following through with goals. Willing to complete weekly self-reflection assignment for homework. Pt to continue aftercare to maintain gains and prevent decompensation. Narrative Note: []
--- NOTE | 2022-06-19 16:05 | BH.MTP_ITS ---
Master Treatment Plan - Patient Information Program Physician:: Dr. Lora Flores Primary Therapist:: David Foote [facility] - Psychiatric Diagnoses Psychiatric Diagnoses:: Bipolar 2 disorder; Strong cluster B traits; PTSD; History of alcohol use disorder in remission Diagnosis Code(s):: F 31.81 - Estimated LOS Estimated LOS (in weeks):: 8 Problem/Goal #1 - Problem/Goal #1 Stated Goal:: client will maintain or see a reduction in symptoms AEB client score on the DSM 5 cross-cutting measure and improve client's daily functioning. - Objectives Objective #1 Stated Objective: Client will continue to consistently apply healthy coping skills to maintain progress made in IOP tx. Interventions: Through group therapy, client will review warning signs and triggers as well as healthy coping skills learned in IOP tx to successfully maintain gains while transitioning into outpatient therapy. Discharge Criteria: Client will have accomplished this goal when client's score on the DSM-5 cross-cutting measure has maintained or reduced over a 8 week period. Target Date: 08/14/22 Review Date: 07/20/22 Status: open Objective #2 Stated Objective: Client will learn and utilize 2-3 maintenance strategies to prevent decompensation from original IOP DSM-5 scores. Interventions: Through group therapy, client will be provided with education on healthy maintenance behaviors, relapse prevention techniques, and healthy coping strategies. Discharge Criteria: Client will have accomplished this goal when can report using at least 2 maintenance skills to prevent decompensation compared to original IOP DSM-5 scores Target Date: 08/14/22 Review Date: 07/20/22 Status: open
--- NOTE | 2022-06-26 14:00 | BH.SGPN.GN ---
Behaviors/Verbalizations/Mental Status: []Pt alert and oriented, neatly dressed and groomed. Eye contact good. Motor activity appropriate. Speech within normal limits. Affect congruent, mood euthymic. Thoughts linear, logical, no signs of hallucinations or delusions. Client Response/Progress/Benefit: []Pt responded well to session, pt reports she has been consistent with medications and seeing her outpatient therapist. ?Pt reports she has been using self-care techniques, opposite action, STOPP, and walking to manage current stressors with her ex- and his father. Pt engaged well during the discussion of the components of self-compassion. Pt connected with the benefits of self-compassion and participated in the activity of reframing a recent setback using self-compassion. Pt used self-compassion to combat negative self-talk and assisted peers in identifying examples of the three components of self-compassion.?Pt appeared to benefit from practicing self-compassion and connecting with peers. ?Will continue aftercare to promote mood stability and reinforce healthy coping skills.? Narrative Note: []
--- NOTE | 2022-07-03 14:00 | BH.SGPN.GN ---
Behaviors/Verbalizations/Mental Status: []Pt alert and oriented, neatly dressed and groomed. Eye contact good. Motor activity appropriate. Speech within normal limits. Affect congruent, mood euthymic. Thoughts linear, logical, no signs of hallucinations or delusions. Client Response/Progress/Benefit: []Pt responded well to session, attentive and engaged. Pt reports she has been seeing her therapist, taking her medications, and she completed the homework from last session. Pt reports using opposite action, practicing self-care, body scanning, and challenging her thoughts. Pt participated in discussion of personal values and why knowing these can be helpful to one's mental health. The group also discussed what could happen if one does not live according to their values. Pt identified her top two values as spirituality and mental health. Pt set a goal to read the bible more and go to on more nature walks. Pt will continue IOP aftercare to promote mood stability and gains made in IOP. Narrative Note: []
== END 2022-07-04 23:59 ==
LOC: BHOG 08:00
PROVIDERS: PCP Internal Medicine; Referring Provider Psychiatry & Neurology Psychiatry; Visit Provider Psychiatry & Neurology Psychiatry
DX: F31.81 Bipolar II disorder (principal)
CPT/HCPCS: 90853

== ENCOUNTER 2022-07-07 08:13 | Outpatient (RCR) | payer MEDICAID, SELFPAY ==
--- NOTE | 2022-07-10 14:00 | BH.SGPN.GN ---
Behaviors/Verbalizations/Mental Status: []Client alert and oriented, casually dressed and groomed. Eye contact good. Motor activity appropriate. Speech within normal limits. Affect congruent, mood euthymic. Thoughts linear, logical, no signs of hallucinations or delusions. Client Response/Progress/Benefit: []Pt receptive of session, engaged throughout. Pt completed her aftercare self-reflection worksheet sharing they see their therapist every Thursday and is setting up an appointment for psychiatry. Pt states they are taking medications as prescribed, and have been using opposite action, self-compassion, exercise, and reaching out to supports as healthy coping skills. Receptive of discussion on healthy decision-making, what impacts making decisions, as well its importance in maintaining mental health stability. Pt worked cooperatively with group to identify benefits of developing and maintaining healthy choices, as well as brainstorming strategies for improving ability to do so. Reported she wants to work on making healthier decisions regarding her diet, Shared [facility] on healthy [facility]. Pt seemed to benefit from support from peers and increasing understanding of healthy habit formation benefits and strategies. Will continue IOP aftercare group and tx to maintain gains and prevent decompensation. Narrative Note: []
--- NOTE | 2022-07-10 17:51 | BH.TPR ---
Treatment Plan Review Date of Admission:: 06/19/22 Date of Treatment Plan Review:: 07/10/22 Admitting Diagnoses:: Bipolar 2 disorder; Strong cluster B traits; PTSD; History of alcohol use disorder in remission Current Diagnoses:: Bipolar 2 disorder; Strong cluster B traits; PTSD; History of alcohol use disorder in remission Patient's Response to Treatment:: Pt continues to respond well to treatment AEB pt's consistent attendance, ongoing attentiveness and engagement in group discussions, and continued reporting use of skills outside treatment environment. Status of Current Problems and Symptoms: Pt continues to report stressors with her divorce, finances, daughter's mental health, and pt's physical health symptoms. Pt endorses mild symptoms of depression and anxiety, but pt can benefit from ongoing tx to help pt cope with these ongoing stressors. Problem #1 Problem Name:: Pt will maintain or see a reduction in sx Status of Goals:: Obj 1 - DSM 5 scores have decreased by73% since IOP admission with depression and anxiety at 100% reduction. Obj 2 - complete with ongoing work encouraged. Pt had been reporting using positive affirmations, walking, self-care, and distress tolerance skills. Team Recommendations:: Recommended client continue IOP aftercare group in addition to attending regular outpatient counseling in order to maintain gains.
--- NOTE | 2022-07-24 14:00 | BH.SGPN.GN ---
Behaviors/Verbalizations/Mental Status: []Pt alert and oriented, casually dressed and groomed. Eye contact good. Motor activity appropriate. Speech within normal limits. Affect congruent, mood euthymic. Thoughts linear, logical, no signs of hallucinations or delusions. Client Response/Progress/Benefit: []Pt responded well to session AEB sharing and listening attentively to others. Pt reports she has been consistent with counseling and psychiatry,is taking medications as prescribed, as well as several healthy coping skills. Skill used identified as opposite action, regular walks, positive self-talk, and prayer. Pt participated in group discussion defining affirmations and why they are important. Pt provided insight throughout clinician?s presentation of tips for writing personal affirmations. Pt wrote own affirmations, including ?I am a valuable asset to the community?. Pt appeared to benefit from increased knowledge of affirmation writing and increased self-awareness. Will continue aftercare treatment to reinforce healthy coping skills and promote gains. Narrative Note: []
== END 2022-08-03 23:59 ==
LOC: BHOG 08:13
PROVIDERS: PCP Internal Medicine; Referring Provider Psychiatry & Neurology Psychiatry; Visit Provider Psychiatry & Neurology Psychiatry
DX: F31.81 Bipolar II disorder (principal); F43.10 Post-traumatic stress disorder, unspecified; F10.91 Alcohol use, unspecified, in remission
CPT/HCPCS: 90853

== ENCOUNTER 2022-08-04 08:07 | Outpatient (RCR) | payer MEDICAID, SELFPAY ==
--- NOTE | 2022-08-07 14:00 | BH.SGPN.GN ---
Behaviors/Verbalizations/Mental Status: []Client alert and oriented, casually dressed and groomed. Eye contact fair to good. Motor activity appropriate. Speech within normal limits. Affect congruent, mood euthymic. Thoughts linear, logical, no signs of hallucinations or delusions. Client Response/Progress/Benefit: []Receptive of session, engaged throughout. Pt has remained consistent in attending outpatient counseling and psychiatry appointments, as well as maintaining medication compliance. Noted use of positive self-talk, opposite action, and self-care as coping skills aiding in ongoing mental health maintenance. Engaged and attentive during discussion of vulnerability and benefits of practicing vulnerability. Shared being vulnerable has not been easy for her as she struggles with fear of embarrassment or being judged. Group discussed ways we avoid feeling vulnerable and how this negatively affects mental health and relationships. Appeared to benefit from group support and discussion reflecting on the positive impact vulnerability can have on mental health. Identified plans to challenge herself to wear something she normally wouldn?t feel comfortable in as a way in which she could practice being vulnerable in the next week. Scheduled to d/c from aftercare this week and will continue with outpatient counseling to maintain gains and prevent decompensation. Narrative Note: []
--- NOTE | 2022-08-07 17:28 | BH.DS ---
Discharge Summary - Demographics Date of Admission:: 06/19/22 Discharge Date: 08/07/22 Presenting Problems at Admission:: Pt discharged from IOP tx and transitioned to IOP aftercare to maintain gains pt made in IOP and to reinforce healthy coping skills. At admission to IOP aftercare, pt continued to report symptoms of depression and anxiety but of reduced intensity and frequency. Pt also was experiencing stress from her divorce, her daughter's mental health, and physical health issues. Discharge Diagnoses:: Bipolar 2 disorder; Strong cluster B traits; PTSD; History of alcohol use disorder in remission Reason for Discharge:: Pt has accomplished tx goals AEB ability to maintain mood stability and gains made in IOP. Pt's DSM-5 scores decreased by an additional 73% from IOP admission. Pt will transition to traditional outpatient counseling. - Treatment Progress During Treatment & Response: Pt responded well and made progress in IOP aftercare as evidenced by pt's participation in group discussions and self-report of consistently applying coping skills. Pt's overall DSM-5 scores decreased by 73% from IOP admission. Pt?s depression decreased by 100% since original IOP admission and pt's scores for anxiety decreased by 67% compared to original IOP scores. Additionally, at discharge Pt was reporting consistently seeing her therapist, using healthy coping skills, and practicing affirmations. Issues Still to be Addressed:: Depression, anxiety, psychosocial stressors impacting mood, communication/social skills, and stress-management skills. Would benefit from ongoing counseling to maintain gains and prevent decompensation. Discharge Recommendations/Instructions:: Recommended to follow up with outpatient therapist (Adeel hernandez [facility]) and psychiatrist (Mode Guzman MD at [facility]). Discharge Handout: Complete Discharge Handout with client on aftercare options and continuity of care.
== END 2022-08-08 07:00 | disposition home or self-care (01) ==
LOC: BHOG 08:07
PROVIDERS: PCP Internal Medicine; Referring Provider Psychiatry & Neurology Psychiatry; Visit Provider Psychiatry & Neurology Psychiatry
DX: F31.81 Bipolar II disorder (principal); F43.10 Post-traumatic stress disorder, unspecified; F10.91 Alcohol use, unspecified, in remission
CPT/HCPCS: 90853

== ENCOUNTER → 2022-10-16 | Outpatient (CLI) | payer MEDICAID, SELFPAY ==
[2022-10-16 16:54] LABS: Absolute Lymphocyte Count 1.13 X10^3/uL (0.83-4.51); Absolute Neutrophil Count 4.7 X10^3/uL (2.0-7.7); Basophil# 0.03 X10^3/uL; Basophil% 0.5 % (0-1); Eosinophil# 0.02 X10^3/uL; Eosinophils% 0.3 % (0-5); Hematocrit 39.3 % (37-47); Hemoglobin 12.5 g/dL (12.0-15.0); Lymphocyte # 1.13 X10^3/ul (0.83-4.51); Lymphocyte % 18.4 % (19-41); Mean Corp Hgb Conc 31.8 g/dL (32-36); Mean Corpuscular Hgb 30.9 pg (27.0-32.0); Monocyte# 0.26 X10^3/uL; Monocyte% 4.2 % (0-10); NRBC Flagged by Analyzer 0 % (0-5); Neutrophil # 4.67 X10^3/uL (2.7-7.7); Neutrophil % 76.1 % (47-70); Platelet Count 231 K/mm3 (150-450); RBC Distribution Width CV 12.9 % (11.6-14.6); RBC Distribution Width SD 46.2 fl (35.1-43.9); Red Blood Count 4.05 M/mm3 (4.2-5.4); White Blood Count 6.1 K/mm3 (4.4-11.0)
[2022-10-16 17:16] LABS: ALB/GLOB Ratio 1.1 RATIO (0.9-2.4); AST(SGOT) 14 U/L (15-37); Alanine Aminotransfer ALT/SGPT 20 U/L (13-56); Albumin, Serum 3.7 g/dL (3.2-5.0); Alkaline Phosphatase 58 U/L (45-117); Anion Gap 6 (5-15); BUN 13 mg/dL (7-18); BUN/Creat Ratio 17.1 RATIO (10-20); Calcium,Total 9.2 mg/dL (8.5-10.1); Chloride 107 mmol/L (98-107); Cholesterol 191 mg/dL (200); Creatinine, Serum 0.76 mg/dL (0.55-1.02); EST Glomerular Filtration Rate 86 mL/min (>60); Est Glom Filt Rate - Afr Amer 104 mL/min (>60); Globulin 3.5 g/dL (2.2-4.2); Glucose 109 mg/dL (74-106); High Density Lipoprotein 83 mg/dL; Potassium 4.1 mmol/L (3.5-5.1); Protein, Total 7.2 g/dL (6.4-8.2); Sodium Level 141 mmol/L (136-145); Triglycerides 48 mg/dL; Very Low Density Lipoprotein 10 mg/dL (5-40)
== END | disposition home or self-care (01) ==
LOC: BIMLAB 14:45
PROVIDERS: PCP Internal Medicine; Referring Provider Internal Medicine; Visit Provider Internal Medicine
DX: F31.9 Bipolar disorder, unspecified (principal); E66.9 Obesity, unspecified
CPT/HCPCS: 36415; 80053; 80061; 85025

== ENCOUNTER → 2023-06-05 | Outpatient (CLI) | payer MEDICAID, SELFPAY ==
[2023-06-05 15:43] LABS: Absolute Lymphocyte Count 1.55 X10^3/uL (0.83-4.51); Basophil# 0.04 X10^3/uL; Basophil% 0.8 % (0-1); Eosinophils% 1.9 % (0-5); Hematocrit 39.2 % (37-47); Hemoglobin 12.7 g/dL (12.0-15.0); Lymphocyte # 1.55 X10^3/ul (0.83-4.51); Mean Corp Hgb Conc 32.4 g/dL (32-36); Mean Corpuscular Hgb 30.6 pg (27.0-32.0); Mean Corpuscular Volume 94.5 fL (81-99); Mean Platelet Vol. 10.7 fl (6.2-12.0); Monocyte# 0.43 X10^3/uL; Monocyte% 8.3 % (0-10); NRBC Flagged by Analyzer 0 % (0-5); Neutrophil # 3.03 X10^3/uL (2.7-7.7); Neutrophil % 58.8 % (47-70); Platelet Count 221 K/mm3 (150-450); RBC Distribution Width CV 12.2 % (11.6-14.6); RBC Distribution Width SD 42.5 fl (35.1-43.9); Red Blood Count 4.15 M/mm3 (4.2-5.4); White Blood Count 5.2 K/mm3 (4.4-11.0)
[2023-06-05 15:57] LABS: AST(SGOT) 17 U/L (15-37); Alanine Aminotransfer ALT/SGPT 19 U/L (13-56); Albumin, Serum 3.6 g/dL (3.2-5.0); Alkaline Phosphatase 63 U/L (45-117); Anion Gap 2 (5-15); BUN 12 mg/dL (7-18); BUN/Creat Ratio 16.3 RATIO (10-20); Calcium,Total 8.8 mg/dL (8.5-10.1); Chloride 109 mmol/L (98-107); Cholesterol 174 mg/dL (200); Creatinine, Serum 0.74 mg/dL (0.55-1.02); EST Glomerular Filtration Rate 89 mL/min (>60); Est Glom Filt Rate - Afr Amer 107 mL/min (>60); Globulin 3.6 g/dL (2.2-4.2); Glucose 88 mg/dL (74-106); High Density Lipoprotein 67 mg/dL; Protein, Total 7.2 g/dL (6.4-8.2); Sodium Level 142 mmol/L (136-145); Triglycerides 67 mg/dL; Very Low Density Lipoprotein 13 mg/dL (5-40)
== END | disposition home or self-care (01) ==
LOC: BIMLAB 11:53
PROVIDERS: PCP Internal Medicine; Visit Provider Internal Medicine
DX: Z00.00 Encounter for general adult medical examination without abnormal findings (principal)
CPT/HCPCS: 36415; 80053; 80061; 85025

== ENCOUNTER → 2023-09-16 | Outpatient (CLI) | payer MEDICAID, SELFPAY ==
--- NOTE | 2023-09-16 15:25 | RAD_ITS ---
STUDY: X-RAY - LEFT HAND REASON FOR EXAM: Female, 48 years old. Diffuse pain. TECHNIQUE: 3 view(s) of the hand. COMPARISON: None. FINDINGS: Normal radiocarpal articulation. Normal distal radioulnar joint. Normal visualized carpal bones. Normal carpal articulations Normal carpometacarpal articulation of the thumb. Normal second through fifth carpometacarpal joints. Normal metacarpi. Normal metacarpophalangeal joint of the thumb. Normal interphalangeal joint of the thumb. Normal proximal and distal phalanges of the thumb. Normal metacarpophalangeal joints of the second through fifth fingers. Normal proximal and distal interphalangeal joints of the second through fifth fingers. Normal phalanges of the second through fifth fingers. The soft tissue structures are unremarkable. RAD/Hand Min 3 Views IMPRESSION: Normal x-ray examination of the hand. Electronically Signed: Cody Knight MD at 15:38 EDT ,
== END | disposition home or self-care (01) ==
PROVIDERS: PCP Internal Medicine; Referring Provider Physician Assistant; Visit Provider Physician Assistant
DX: M79.645 Pain in left finger(s) (principal)
CPT/HCPCS: 73130

== ENCOUNTER → 2024-08-03 | Outpatient (CLI) | payer MEDICAID, SELFPAY ==
[2024-08-03 12:59] LABS: Absolute Lymphocyte Count 2.22 X10^3/uL (0.83-4.51); Absolute Neutrophil Count 3.1 X10^3/uL (2.0-7.7); Basophil# 0.05 X10^3/uL; Basophil% 0.8 % (0-1); Eosinophils% 1.7 % (0-5); Hemoglobin 12.2 g/dL (12.0-15.0); Lymphocyte # 2.22 X10^3/ul (0.83-4.51); Lymphocyte % 37.3 % (19-41); Mean Corpuscular Hgb 30.7 pg (27.0-32.0); Mean Corpuscular Volume 93.2 fL (81-99); Mean Platelet Vol. 10.5 fl (6.2-12.0); Monocyte# 0.51 X10^3/uL; Monocyte% 8.6 % (0-10); NRBC Flagged by Analyzer 0 % (0-5); Neutrophil # 3.06 X10^3/uL (2.7-7.7); Neutrophil % 51.4 % (47-70); Platelet Count 255 K/mm3 (150-450); RBC Distribution Width CV 12.4 % (11.6-14.6); Red Blood Count 3.97 M/mm3 (4.2-5.4)
[2024-08-03 13:41] LABS: ALB/GLOB Ratio 1.5 RATIO (0.9-2.4); AST(SGOT) 22 U/L (<=31); Alanine Aminotransfer ALT/SGPT 14 U/L (<=34); Albumin, Serum 4.2 g/dL (3.5-5.0); Alkaline Phosphatase 76 U/L (35-104); Anion Gap 11 (5-15); BUN 13 mg/dL (4-19); BUN/Creat Ratio 17.6 RATIO (10-20); Calcium,Total 9.5 mg/dL (7.6-11.0); Carbon Dioxide 25.4 mmol/L (21.0-32.0); Chloride 104 mmol/L (98-108); Cholesterol 180 mg/dL (<=200); Creatinine, Serum 0.73 mg/dL (0.70-1.20); EST Glomerular Filtration Rate 100 (>60); Globulin 2.8 g/dL (2.2-4.2); Glucose 98 mg/dL (70-99); High Density Lipoprotein 63 mg/dL; Low Density Lipoprotein Calc. 100 mg/dL; Sodium Level 140 mmol/L (133-145); Total Bilirubin 0.36 mg/dL (0.00-1.30); Triglycerides 85 mg/dL; Very Low Density Lipoprotein 17 mg/dL (5-40); cholesterol:hdl ratio screen 2.84
== END | disposition home or self-care (01) ==
LOC: BIMLAB 08:57
PROVIDERS: PCP Internal Medicine; Referring Provider Internal Medicine; Visit Provider Internal Medicine
DX: Z00.00 Encounter for general adult medical examination without abnormal findings (principal)
CPT/HCPCS: 36415; 80053; 80061; 85025

== ENCOUNTER → 2024-08-08 | Outpatient (CLI) | payer MEDICAID, SELFPAY ==
--- NOTE | 2024-08-08 17:05 | RAD_ITS ---
PROCEDURE: LUMBAR SPINE 2 OR 3 VIEWS 08/08/2024 REASON FOR EXAM: SACROILIITIS TECHNIQUE: 2 view(s) of the lumbar spine COMPARISON: 03/25/2021 FINDINGS: There is a partially lumbarized appearing S1 segment for nomenclature purposes. No fracture. L3-4 [id number] disc space narrowing with anterior corner osteophyte formation L4-5 mild disc space narrowing L5-S1 mild anterolisthesis L5 on S1 with [id number] disc space narrowing Symmetric appearing bilateral SI joints. RAD/Lumbar Spine 2 or 3 Views IMPRESSION: Multilevel spondylosis/discogenic changes above. Reading Location: [id number]
--- NOTE | 2024-08-08 17:05 | RAD_ITS ---
PROCEDURE: CERV SPINE 2 OR 3 VIEWS 08/08/2024 REASON FOR EXAM: CERVICAL SPONDYLOSIS TECHNIQUE: 3 views of the cervical spine. COMPARISON: None available FINDINGS: Cervical spine is visualized on the lateral view from the skull base to T1. No fracture or malalignment. No prevertebral soft tissue swelling. C4-5 mild disc space narrowing and anterior corner osteophyte formation C5-6 moderate to severe disc space narrowing with degenerative endplate change and anterior corner osteophyte formation C6-7 moderate disc space narrowing with degenerative endplate change and anterior corner osteophyte formation RAD/Cerv Spine 2 or 3 Views IMPRESSION: Multilevel spondylosis/discogenic change. Reading Location: [id number]
== END | disposition home or self-care (01) ==
LOC: RAD 16:54
PROVIDERS: PCP Internal Medicine; Referring Provider Anesthesiology; Visit Provider Anesthesiology
DX: M46.1 Sacroiliitis, not elsewhere classified (principal); M47.812 Spondylosis without myelopathy or radiculopathy, cervical region
CPT/HCPCS: 72040; 72100